=== PATIENT | male | born 1930 | race Caucasian/White ===

== ENCOUNTER 2016-09-16 12:03 | Inpatient (IN) | payer MEDICARE, OTHER ==
[~2016-09-16] VITALS: Ht 170.2 cm; Wt 84.0 kg
[~2016-09-16 12:03] MED LIST: ACET-171 PO; ALBU8.5H2 INHALATION; FUR20 PO; MELA3TAB35 PO; SIMV10TA4 PO; TIOT18CA3 IH
--- NOTE | 2016-09-16 12:06 | ED.REPORT ---
HPI-General Illness Date of Service Sep 16, 2016 ED Provider: Ghanshyam Marley DO Pt is an 86y.o. male with a hx of myelofibrosis, DM, CHF, and COPD who presents to the ED via EMS from a long term with decreased LOC and weakness. Per EMS nursing staff reported pt had abdominal pain but pt's abdomen was soft and non- tender per their examination. EMS also reports that pt has normally critically high WBC value per nursing staff. states that pt is conversational at baseline and has not been conversational since she has seen him today. Pt was recently hospitalized at [facility] for pneumonia and was discharged on a course of 300mg clindamycin, 4 times daily, which he completed on 09/08/16 per his . Pt has a PEG tube. Pt is poor historian due to metal status. Nursing Notes Stated Complaint: ALTERED LOC Nursing Notes Reviewed: Yes Allergies: Coded Allergies: No Known Allergies (Unverified , 10/04/15) Scheduled Albuterol HFA (Proair HFA) 8.5 Gm Hfa.aer.ad 2 PUFFS INHALATION q 8 hours Allopurinol (Allopurinol) 100 Mg Tablet 200 MG PO DAILY Furosemide (Furosemide) 20 Mg Tab 20 MG PO DAILY Hydroxyurea (Hydroxyurea) 500 Mg Capsule 500 MG PO mon, wed, fri Cmb #3/Fos/Pantethine (Probiotic & Acidophilus Cap) 1 Each Capsule 1 EACH PO BID Linezolid (Zyvox) 600 Mg Tablet 600 MG PO BID Ranitidine (Ranitidine) 150 Mg Capsule 150 MG PO BID Simvastatin (Simvastatin) 10 Mg Tablet 10 MG PO HS Scheduled PRN Hydrocodone-Acetaminophen 5-325 mg (Hydrocodone-Acetaminophen 5-325 mg) 1 Each Tablet 1 TABLET PO Q4H PRN PRN For Pain Polyethylene Glycol 3350 (Miralax) 17 Gm Powd.pack 17 GM PO DAILY PRN PRN For Constipation Miscellaneous Medications Lactose-Free Food/Fiber (Jevity 1.5 Quoc Liquid) 1,000 Ml Liquid 1,000 ML PO General Time Seen by MD: 12:06 Transferred From: shelter Chief Complaint Altered mental status Hx Obtained From: Spouse, EMS Unable to Obtain Hx: Patient condition, Mental status Arrived By: Ambulance Sudden in Onset?: Yes Onset Occurred: Just prior to arrival Symptom Duration: Since onset Severity: Current: No pain currently Past Medical History Past Medical History Notes: Oncologist: Dr. Bruce Past Medical History COPD Heart failure High cholesterol Severe emphysema Multifactorial pneumonia Multivessel CAD Hx of endocarditis Hx of acute respiratory failure Hx of Cdiff Myelofibrosis Reports: Diabetes mellitus Family History noncontributory Smoking History Former Smoker Social History Drug Use: Denies drug use Other Social History: , Lives in long term, Local resident Occupation noncontributory Review of Systems Unable to Obtain ROS Patient condition, Mental status Full Review of Systems Constitutional: Reports: Weakness - generalized Neurologic: Reports: Change LOC Complete sys rev & neg: except as marked. Physical Exam Vital Signs Initial VS: Reviewed Head / Eyes: Atraumatic, Normocephalic Skin: Warm, Dry, No cyanosis General/Constitutional: Awake Minimally responsive to stimulation Mouth: Positive: Mucous membranes dry Green plaques/crusts to back of throat and tongue Neck: Atraumatic Respiratory / Chest: Atraumatic, Breath sounds = bilat, No respiratory distress , No rales, No rhonchi, No wheezing, No retractions, No stridor Tachypneic Mouth breathing Cardiovascular: Heart rate NL, Regular rhythm, Heart sounds NL, No gallop, No murmurs, No rubs, Peripheral circulation NL Abdomen: Atraumatic, Soft, Non-tender, No distention Mental Status: Positive: Unresponsive (Minimally responsive to stimulation) Interpretation & Diagnostics Lab Results Interpretation Result Diagram: 09/24/16 0321 09/24/16 0321 Test 09/16/16 12:09 09/16/16 14:19 09/16/16 15:10 Troponin T 0.010ug/L (0.0-0.011) Pro-B-Type Natriuretic Peptide 550.9pg/mL (0-486) Urine Color Yellow (YELLOW) Urine Appearance Clear (CLEAR,HAZY) Urine pH 6.5 (5.0-8.0) Urine Specific [place] 1.015 (1.003-1.035) Urine Protein Tracemg/dL (NEG,TRACE) Urine Glucose (UA) Negativemg/dL (NEGATIVE) Urine Ketones Negativemg/dL (NEGATIVE) Urine Occult Blood Negative (NEGATIVE) Urine Nitrite Negative (NEGATIVE) Urine Bilirubin Negative (NEGATIVE) Urine Urobilinogen Normalmg/dL (NORMAL) Urine Leukocyte Esterase Negative (NEGATIVE) Urine RBC 0-2/hpf (0-2) Urine WBC 0-5/hpf (0-5) Urine Epithelial Cells Occasional/hpf (NONE-MOD) Urine Crystals Amorphous urates (NONE Urine Bacteria Few/hpf (NONE-FEW) Urine Hyaline Casts None/lpf (NONE) Urine Granular Casts None seen (NONE SEEN) Urine Waxy Casts None seen (NONE SEEN) Urine Red Blood Cell Casts None seen (NONE SEEN) Urine White Blood Cell Casts None seen (NONE SEEN) Urine Mucus Present (None Seen) Urine Trichomonas None seen (NONE SEEN) Urine Yeast None (NONE SEEN) Urinalysis Comment Fine granular casts Urine Culture Reflexed Not indicated Urine Random Calcium 7.7mg/dL (Not Estab.) Urine Total Protein 40.4mg/dL (Not Estab.) Urine Albumin 19.8% (.) Urine Pwzyw-0-Wajodjfx 4.9% (.) Urine Prjxv-1-Pgjcgrkie 19.5% (.) Urine Beta Globulin 36.7% (.) Urine Gamma Globulin 19.1% (.) Urine Protein Electrophoresis Note Comment (.) Urine Monoclonal Protein % 13.9% (Not Observed) Vitamin B12 Level >1999pg/mL (211-946) Thyroid Stimulating Hormone (TSH) 2.120uIU/mL (0.450-4.500) ECG Interpretation ECG Interpretation: Atrial premature complex Time: 12:30 Interpreted by: ED physician Normal ECG Interpretation: Normal rate (72), Normal sinus rhythm BMP / CMP Interpretation Na elevated, Ca elevated X-Ray Chest Interpretation Chest Xray Interpretation: IMPRESSION: No acute cardiopulmonary disease. Dictated by: Pavel Bates M.D. on 09/16/2016 at 12:38 Approved by: Pavel Bates M.D. on 09/16/2016 at 12:39 Chest Xray Interpretation: IMPRESSION: No radiographic evidence for pneumonia. Dictated by: Pavel Bates M.D. on 09/16/2016 at 14:02 Approved by: Pavel Bates M.D. on 09/16/2016 at 14:03 CT Head Interpretation IMPRESSION: No acute intracranial abnormalities. Moderate periventricular and deep white matter chronic small vessel ischemic change. Dictated by: Pavel Bates M.D. on 09/16/2016 at 13:38 Approved by: Pavel Bates M.D. on 09/16/2016 at 13:40 Re-Eval/Medical Decision Med Decision/Clinical Course 86-year-old male with a history of myelofibrosis and recent admission for pneumonia at [facility] who just finished a course of clindamycin presents for acute encephalopathy and weakness. Patient is a poor historian so it is difficult to obtain much history. It is noted that he has TYRA with multiple electrolyte abnormalities most likely related to dehydration. His pro calcitonin is elevated despite negative chest x-ray. This could indicate that he has pneumonia that we are not seeing due to dehydration. His white count is unreliable due to his myelofibrosis as it is chronically elevated. He has no signs of sepsis by vital signs. He was given 2 L of fluids here in the emergency department for dehydration and electrolyte abnormalities. He will need to be admitted for further evaluation and treatment. I discussed with the hospital but I did not start antibiotics empirically as there was no signs of sepsis or infection, except for the elevated pro calcitonin in the history of recent pneumonia. His UA is normal Source of Hx: Old records Time of Eval: 14:54 Re-Evaluation/Progress Note: Pt rechecked. Pt is sleeping. Discussed lab, imaging results, and plan for admit with . She understands and agrees with plan. states pt is DNAR, full treatment. Consultation : Referral / Consult Name: Sandra Holliday MD Consulted With: Hospitalist Call Returned at: 15:25 Gambreler Helper: Accepts admit Note: Discussed pt condition. Accepts admit. Counseled Regarding: Diagnosis, Lab results, Need for admission Discharge & Departure Primary Impression: Hypernatremia Additional Impressions: Hypercalcemia Dehydration Acute kidney injury Acute encephalopathy Disposition: ADMITTED TO HOSPITAL Discharge Condition All VS Reviewed: Yes Condition: Stable Referrals: Ethan Self MD (PCP) Crow Attestation Portions of this note were transcribed by Gabrielle Brock. I, Dr. Marley personally performed the history, physical exam and medical decision-making; I reviewed and confirmed the accuracy of the information in the transcribed note. Signed by: Crow Martinez, 09/16/2016 and [id number]. copies to: Ethan Self MD, Gary R DO Sep 16, 2016 12:06 GABRIELLE BROCK Sep 16, 2016 12:09 Time of Eval: 14:54 Re-Evaluation/Progress Note: Pt rechecked. Pt is sleeping. Discussed lab, imaging results, and plan for admit with . She understands and agrees with plan. states pt is DNAR, full treatment. Consultation : Referral / Consult Name: Sandra Holliday MD Consulted With: Hospitalist Call Returned at: 15:25 Gambreler Helper: Accepts admit Note: Discussed pt condition. Accepts admit. Counseled Regarding: Diagnosis, Lab results, Need for admission Discharge & Departure Primary Impression: Hypernatremia Additional Impressions: Hypercalcemia Dehydration Acute kidney injury Disposition: ADMITTED TO HOSPITAL Discharge Condition All VS Reviewed: Yes Condition: Stable Referrals: Ethan Self MD (PCP) Crow Attestation Portions of this note were transcribed by Gabrielle Brock. I, Dr. Marley personally performed the history, physical exam and medical decision-making; I reviewed and confirmed the accuracy of the information in the transcribed note. Signed by: Crow Martinez, 09/16/2016 and 1608. copies to: Ethan Self MD, Gary R DO Sep 16, 2016 12:06 GABRIELLE BROCK Sep 16, 2016 12:09
[2016-09-16 12:11] VITALS: BP 111/50; PULSE 80; RESP 18; O2SAT 100
[2016-09-16] MEDS ORDERED: 0.9% Sodium Chloride 1,000 ML IV ONE ×2 (12:16→13:39)
[2016-09-16 12:27] LABS: Mean Corpuscular Hemoglobin 33.4 pg (27.0-35.0); Mean Corpuscular Volume 110.5 fL (81-100); Platelet Count 170 bil/L (150-400)
[2016-09-16 12:40] LABS: INR 1.1 ratio
--- NOTE | 2016-09-16 12:41 | DRSVH ---
PROCEDURE: X-RAY CHEST ONE VIEW, PORTABLE ([id number]) INDICATIONS: 86 year-old male with shortness of breath and altered mental status. TECHNIQUE: One view of the chest was acquired. COMPARISON: [facility], , CHEST 1 VIEW, 06/28/2016, 20:37. [facility], , CHEST 2 VIEW , 06/23/2016, 13:51. [facility], , XR CHEST 1VW (PORTABLE), 09/12/2015, 8:50. FINDINGS: Surgical changes and devices: None. Lungs and pleura: No pleural effusions or pneumothorax. Lungs are clear. Mediastinum: Mediastinal contours appear normal. Heart size is normal. There is aortic atheroscler osis. Bones and chest wall: No suspicious bony lesions. Overlying soft tissues appear unremarkable. IMPRESSION: No acute cardiopulmonary disease. Dictated by: Pavel Bates M.D. on 09/16/2016 at 12:38 Approved by: Pavel Bates M.D. on 09/16/2016 at 12:39
[2016-09-16 12:58] LABS: BASOPHILS % (AUTO) 1 % (0-3); EOSINOPHILS % (AUTO) 1 % (0-5); MONOCYTES % (AUTO) 2 % (4-12); NEUTROPHILS % (AUTO) 47 % (40-74)
[2016-09-16 12:59] LABS: TROPONIN T 0.01 ug/L (0.0-0.011)
[2016-09-16 13:10] LABS: Magnesium 3.3 mg/dL (1.6-2.6)
--- NOTE | 2016-09-16 13:42 | DRSVH ---
PROCEDURE: CT BRAIN WITHOUT CONTRAST ([id number]) INDICATIONS: 86 year-old male with altered mental status. TECHNIQUE: Noncontrast 4.5 mm thick angled axial sections acquired from the foramen magnum to the vertex, with c oronal reformats. COMPARISON: None. FINDINGS: Image quality: Excellent. CSF spaces: Basal cisterns are patent. No extra-axial fluid collections. The ventricles are symmet gino in size and shape. Brain: No intracranial bleeds or masses. There is cerebral volume loss for age, with resultant vent ricular and sulcal prominence. There are moderate periventricular and deep white matter chronic smal l vessel ischemic changes. There is intracranial internal carotid and vertebral artery atheroscleros is. Skull and face: Calvarium and visualized facial bones appear intact, without suspicious lesions. Sinuses: Visualized sinuses and mastoids are clear. IMPRESSION: No acute intracranial abnormalities. Moderate periventricular and deep white matter chron ic small vessel ischemic change. Dictated by: Pavel Bates M.D. on 09/16/2016 at 13:38 Approved by: Pavel Bates M.D. on 09/16/2016 at 13:40
[2016-09-16] MEDS ORDERED: Lidocaine 2% 6mL Topical Jelly ONE (14:04)
--- NOTE | 2016-09-16 14:05 | DRSVH ---
PROCEDURE: X-RAY CHEST ONE VIEW ([id number]) INDICATIONS: 86-year-old male with tachypnea and altered mental status. TECHNIQUE: One view of the chest was acquired. COMPARISON: [facility], CR, XR CHEST 1VW (PORTABLE), 09/16/2016, 12:18. [facility], , CHEST 1 VIEW, 06/28/2016, 20:37. [facility], , CHEST 2 VIEW, 06/23/2016, 13:51. FINDINGS: Surgical changes and devices: None. Lungs and pleura: No pleural effusions or pneumothorax. Lungs are clear. There is incomplete inspi ratory effort. Mediastinum: Mediastinal contours appear normal. Heart size is normal. Bones and chest wall: No suspicious bony lesions. Overlying soft tissues appear unremarkable. IMPRESSION: No radiographic evidence for pneumonia. Dictated by: Pavel Bates M.D. on 09/16/2016 at 14:02 Approved by: Pavel Bates M.D. on 09/16/2016 at 14:03
[2016-09-16 14:52] LABS: APPEARANCE,URINE CLEAR (CLEAR,HAZY); COLOR,URINE YELLOW (YELLOW); OCCULT BLOOD,URINE NEGATIVE (NEGATIVE); PH,URINE 6.5 (5.0-8.0); UROBILINOGEN,URINE NORMAL (NORMAL)
[2016-09-16 17:30] VITALS: BP 109/69; PULSE 79; RESP 24; O2SAT 95
--- NOTE | 2016-09-16 17:49 | PCM.HPMED ---
Subjective Date of Service Sep 16, 2016 Primary Provider: Admitting Physician: Sandra Holliday MD Primary Care Physician: Ethan Self MD Attending Physician: Sandra Holliday MD Chief Complaint: Increased confusion, ongoing worsening hypernatremia HISTORY was OBTAINED FROM PATIENT / MEDITECH NOTES History of present illness 86y m, PEG/aspiration risk/prior sepsis/intubations, doesn't want to be touched anywhere, s/p 08/29- hospitalized at [facility] for asp pneumonia finished clindamycin 09/08/16, discharged to SNF for recuperation, w/ mild confusion on discharge, but worse 1-2 days and transferred here. Per SNF notes, Na 158 2016 w/ increase of tube feed free water to 90cc per 3hrs, ongoing lasix use, no cough, formed stool per , no rash recurrence. recurrence of thrush per . In the ER a chest refused nasal swab, 111/50, 80, room air, afebrile, 1 L normal saline lidocaine, Urine casey placed in ER > 800ccuop mildly dark, Review of Systems - unable to obtain, confused, pushes away hands while examining, arousable, does not follow commands. 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 He has had several severe infections COPD, diastolic heart failure, Echo (09/13/15): LVEF 55-60% with diastolic septal bounce, but no other obvious focal wall motion abnormalities. 2015 sepsis severe pneumonia and respiratory failure, requiring intubation and ICU hospitalization with influenza and respiratory syncytial virus, Dysphagia. Gout. Hypertension. Hyperlipidemia. Weakness requiring [facility] (SNF) admisison. Multivessel CAD Hx of endocarditis Allergies Coded Allergies: No Known Allergies (Unverified , 10/04/15) PMH Social History Hx Alcohol Use: No Alcoholic Drinks Per Day: pt from facility Hx Substance Use: No Smoking Status: Former Smoker Exam Vital Signs Vital Sign - Last Date Time Temp Pulse Resp B/P Pulse Ox O2 Delivery O2 Flow Rate FiO2 09/16/16 12:11 36.4 80 18 111/50 100 Room Air Lab and Diagnostics Labs Exam on admission 2L NC NAD pushes hands away feebly NC/AT no icterus no injected eyes EOMI PERRL / thrush, mouth breather, dry mucosa Supple neck - flexes head to move NC around CTAB equal chest rise / no accessory muscle use / mumbles / no rrw RRR S1 S2 / no mrg / 2+ radial pulses Soft nt nd + BS no hepatosplenomegaly PEG No edema no cyanosis no ecchymosis of lower extremities No rash / no jaundice LEDEZMA symmetrical facies EKG Trop BNP 550 << 4517 in 09/2015 WBC range 16-32 since 2015, chronic bandemia range 5-26 2015 LFT normal Ca 13 >> 11 after 1L NS in ER Cr 2 >> 1.8 after 1L NS in ER UA neg for nitrite/leuckocyte esterase/yeast Bcx pending PROCEDURE: CT BRAIN WITHOUT CONTRAST ([id number]) INDICATIONS: 86 year-old male with altered mental status. TECHNIQUE: Noncontrast 4.5 mm thick angled axial sections acquired from the foramen magnum to the vertex, with coronal reformats. COMPARISON: None. FINDINGS: Image quality: Excellent. CSF spaces: Basal cisterns are patent. No extra-axial fluid collections. The ventricles are symmetric in size and shape. Brain: No intracranial bleeds or masses. There is cerebral volume loss for age , with resultant ventricular and sulcal prominence. There are moderate periventricular and deep white matter chronic small vessel ischemic changes. There is intracranial internal carotid and vertebral artery atherosclerosis. Skull and face: Calvarium and visualized facial bones appear intact, without suspicious lesions. Sinuses: Visualized sinuses and mastoids are clear. IMPRESSION: No acute intracranial abnormalities. Moderate periventricular and deep white matter chronic small vessel ischemic change. Chest Xray Interpretation: IMPRESSION: No acute cardiopulmonary disease. Result Diagram: 09/16/16 1209 09/16/16 1510 Assessment & Plan Active issues and reason for admission Increased confusion per family, likely due to dehydration/hypernatremia/TYRA, ongoing thrush --pending thyroid panel/b12 --last BM yesterday firm --pending Hypernatremia/hypercalemia, new onset w/ TYRA, likely prerenal --stop lasix --75cc/hr 1/2NS, serial Na --increase home free water 90cc/3hr to 125cc/hr --pending c diff - though stools are formed since clindamycin finished 09/08 Thrush, myelofibosis hx --fluconazole IV tremors --per no AMS episodes until aug 2016, preceding tremors --pending B12 --start vit B complex Chronic issues known prior to admission, present on admission Chronic anemia macrocytic -- f/u pcp health care associated C diff colitis gout severe dysphagia/prior intubation/pna, PEG 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 Gout Hypertension. Hyperlipidemia. Weakness requiring [facility] (SNF) admisison. Multivessel CAD Hx of endocarditis --continue home tiotropium/ --consider uric acid after fluid resusitation, allopurinol had been stopped at some point and per oncologist note, he wanted him back on it. Diet jevity continuous 75 DVT prophylaxis heparin scd Code dnr / intubate as needed Disposition inpt Assessment and plan were discussed with patient family. Sandra Holliday MD Sep 16, 2016 17:49
--- NOTE | 2016-09-16 17:52 | NUR ---
Admit Patient admitted to room 1022 from ER. Patient brought in by medics from nursing facility for increased weakness, change in mentation. Pt very fatigued does moan out with repositioning . Pt very thin , skin overall no breakdown seen. at bedside to provide history. Patient not answering questions at this time.
[2016-09-16] MEDS ORDERED: Fluconazole Inj 200 MG in IV Premix 1 EACH IV SCH (18:25)
[2016-09-16] MEDS ORDERED: Albuterol 1.25 mg/3 mL Inhalation Solution NEB PRN (18:40)
[2016-09-16] MEDS ORDERED: FLUCONAZOLE IV SCH (19:10)
[2016-09-16] MEDS: HYDROcodone-APAP 5-325 mg Tablet PO PRN (19:16)
[2016-09-16] MEDS ORDERED: LACT1CAP60 PO (19:30)
[2016-09-16] MEDS ORDERED: HYDR-4003 PO (19:30)
[2016-09-16] MEDS ORDERED: RANI150C4 PO (19:31)
[2016-09-16] MEDS ORDERED: POLY17PO6 PO (19:34)
[2016-09-16] MEDS ORDERED: HYDR500C2 PO (19:34)
[2016-09-16] MEDS ORDERED: LACT-75 PO (19:37)
[2016-09-16] MEDS ORDERED: ZYL100 PO (19:37)
--- NOTE | 2016-09-16 19:41 | NUR ---
Feedings Patient started on Jevity 1.5 jamie at 75 cc/hr with 125 cc h20 flush q 3hrs. Iv fluids started as ordered.
--- NOTE | 2016-09-16 19:41 | NUR ---
med rec med rec updatd per the SNF record in the hard chart. notified Swing hospitalist, Dr Holliday via [employer].
[2016-09-16 20:17] VITALS: BP 102/58; PULSE 81; RESP 22; O2SAT 94
[2016-09-16] MEDS ORDERED: Albuterol 1.25 mg/3 mL Inhalation Solution NEB SCH (20:30)
[2016-09-16] MEDS ORDERED: Polyethylene Glycol (PEG) 17 Gm Powder PO PRN (20:55)
[2016-09-16 21:03] VITALS: PULSE 82
[2016-09-16] MEDS: Vitamin B Complex/Vit C Tablet PEG SCH (23:50)
[2016-09-16] MEDS ORDERED: Zoledronic Acid 4 mg/5 mL Inj 4 MG in 0.9% Sodium Chloride 100 ML IV ONE (23:55)
[2016-09-17] VITALS (10 sets, daily range): BP systolic 95–109; BP diastolic 52–61; PULSE 67–86; RESP 20–22; O2SAT 90–100
[2016-09-17] MEDS ORDERED: SODIUM CHLORIDE 0.45% IV ONE (00:15)
[2016-09-17] MEDS ORDERED: ZOLEDRONIC ACID IV ONE ×2 (00:15)
[2016-09-17] MEDS ORDERED: Zoledronic Acid 4 mg/5 mL Inj 4 MG in 0.9% Sodium Chloride 100 ML IV ONE (00:15)
--- NOTE | 2016-09-17 01:49 | NUR ---
Patient coughing and having a hard time clearing airway. Upon inspection with flashlight, roof of mouth, uvula, back of throat and tounge were coated with thick creamy white dried secretions. Aggressive oral care given, scrubbing and suctioning with yankauer until mostly clear. Large palm sized polly of dried creamy white thick secretions, pulled out with yankauer from back of patient's throat. Shown to RN and empathized need for frequent daily aggressive oral care. Patient breathing better after oral care and actually falling asleep due to being able to finally relax with his breathing. BS clear to auscultation and upper airway no longer sounding stridorousl. Spo2 at 90%.on RA. Placed on 1l nc for spo2 to 94%.
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
--- NOTE | 2016-09-17 07:46 | NUR ---
Suction Respiratory suctioned patient and removed a large amount of gunk from back of patient's oral cavity. Patient seems to be swallowing much more easily after suctioning. Patient unable to respond well when asked questions. Patient slept through most of shift.
[2016-09-17] MEDS: Tiotropium 18mcg/Cap 5 Capsule Inhaler Kit INHALATION SCH (08:30)
[2016-09-17] MEDS: Albuterol 1.25 mg/3 mL Inhalation Solution NEB SCH ×2 (08:39→20:12)
[2016-09-17] MEDS: Vitamin B Complex/Vit C Tablet PEG SCH (10:12)
--- NOTE | 2016-09-17 10:54 | NUR ---
NUTRITION ASSESSMENT: ASSESS: 86 yo M admitted for encephalopathy, increased confusion and dehydration. Pt with chronic PEG tube as pt with severe dysphagia. Pt is on Jevity 1.2 per call to SNF at 75 ml/hr. Pt was started on Jevity 1.5 at 75 mL/hr per MD order. PMHX: Myeloproliferative disorder, CHF, COPD, T2DM, HTN, HLD, CAD, Gout, severe dysphagia, c-diff colitis. LABS: Reviewed. Na 161, BUN 79, Cr 1.77, Glu 189, Ca 11.5, Alb 2.8. MEDS: Reviewed. GI: No BM reported yet. CURRENT WTS: 64.7 kg. NUTRITION SUPPORT (PEG): Jevity 1.5 at 75 mL/hr + 125 mL H2O flush every 3 hours as per MD order (2588 kcals, 110 g protein, and 2311 ML free H2O per day) HOME TF: Jevity 1.2 at 75 mL/hr + 90 ML H2O every 3 hours providing 2160 kcals, 100 g protein,and 2173 ML free H2O per day. EST. NEEDS: COPD Kcals: 3765-8674 kcal/day (30-35 kcal/kg BW) Pro: 80-100 g/day (1.2-1.5 g/kg BW) NUTRITION DIAGNOSIS: 1.) Inadequate oral intake related to severe dysphagia as evidenced by need for chronic PEG tube TF. NUTRITION INTERVENTION: 1.) Recommend decreasing TF of Jevity 1.5 at 65 ML/hr x 23 with 125 mL H2O flush every 3 hours as per MD order to provide 2243 kcals, 95 g protein and 2136 mL free H2O per day. MONITOR / EVAL: TF tolerance, labs, nutritional status. Continue to monitor per high nutrition risk guidelines. Addendum: 09/19/16 at [address] Pt transferred to CCU and intubated. Possible aspiration, TF rate decreased to 40 ml/hr per MD. Will continue to monitor.
[2016-09-17] MEDS: HYDROcodone-APAP 5-325 mg Tablet PO PRN ×3 (11:17→22:15)
--- NOTE | 2016-09-17 17:25 | NUR ---
TF/SPUTUM/Activity TF: Multiple orders for TF. Call to sheriffs officer and requested verification. Per Fabrication Department Supervisor, pt to be on Jevity 1.5 at 65ml/hr with continued flushes at 125cc q3h. TF running low and call to kitchen after no arrival of new TF. At 1330, TF empty - pt flushed and awaited new TF. At 1430, new bottle Jevity 1.5 hung and infusing. No issues at this time with PEG tube. Sputum: Per report, pt had mucous plug expectorated - sample sent for cx. Pt with sensitive nose = rapid flu and MRSA unable to be obtained. NOC RN attempted on their shift, pt did not tolerate - contaminated. RN went to reattempt and pt refusing. PO care provided. Activity: Pt itching face/ear/head, all over per pt - requesting Benadryl. This RN spoke with re: anti-itch and with pt encephalopathy, stated he would order cream to help with itch. Pt aware of this order - will apply when up from pharmacy. Care continues.
--- NOTE | 2016-09-17 18:06 | PCM.PNMED ---
Subjective Date of Service Sep 17, 2016 Subjective Nonverbal and cannot really even responsive. Obtunded eyes closed, his reports that he was awake all night delirious and there was also a large mucoid mass he moved by suction that is probably when she shows me at least 1 inch in diameter Exam Vital Signs Vital Sign - Last Date Time Temp Pulse Resp B/P Pulse Ox O2 Delivery O2 Flow Rate FiO2 09/17/16 16:59 37.0 67 20 95/52 95 Room Air Intake and Output 09/16/16 09/16/16 09/17/16 Cumulative From/Thru 15:00 23:00 07:00 09/16/16 17:12 - 09/17/16 05:17 Intake Total 0 ml 0 ml 0 ml Output Total 650 ml 1000 ml 1650 ml Balance -650 ml -1000 ml -1650 ml Intake Oral 0 ml 0 ml 0 ml Output Urine Total 650 ml 1000 ml 1650 ml # Bowel Movements 0 0 Exam Gen.-Thin male sleeping in bed no apparent distress. After reportedly being up all night according to his Eyes-closed, no discharge normal eyelids Mouth-dry ENT- ears normal, nose normal Neck- supple/trach midline CVS-normal rate Lungs-normal rate no evidence of respiratory distress or accessory muscle usage GI-flat Musc- moving 4 no obvious deformity Neuro- cranial nerves II through XII intact to gross examination, nonfocal Skin- warm and dry, no rashes/lesions/wounds noted Psych-sleeping, not awakened by talking loudly over him Lab and Diagnostics Result Diagram: 09/16/16 1209 09/17/16 1252 Assessment & Plan 86-year-old male admitted 09/16 with increased confusion. Normally conversational a baseline and I guess relatively lucid. Discharge to SNF from [facility] about 09/13. Free water deficit of 7.76 L as of 09/17 total I/Os -336mls. Goal lower Na by 0.4meq/hr. If not correcting change to d5W @ 90-100mls/hr Acute metabolic encephalopathy- correctable electrolytes treat underlying causes. - TSH 2.2 09/16 -B12 09/16 still pending 09/17 -Ordering olanzapine by mouth/IM when necessary agitation patient was sundowning 09/16 according to . 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 Oral care tremors- no history of seizures will observe --per no AMS episodes until aug 2016, preceding tremors --pending B12 09/17 --vit B complex 09/15 severe dysphagia/prior intubation/pna, PEG- continue PEG tube feeding- jevity continuous 75, free water Weakness requiring [facility]) admission-PT/OT E bounce when appropriate Chronic issues known prior to admission, present on admission Chronic anemia macrocytic -- f/u pcp health care associated C diff colitis- no BM since admission gout- no sign of this now. --consider uric acid after fluid resuscitation, allopurinol had been stopped at some point and per oncologist note, he wanted him back on it. 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 Prophylaxis- DVT/heparin,scd. GI famotidine renally dose Disposition- DO NOT [facility]ATE from [facility] likely back there Medically complex patient is high risk for complications VTE Mechanical Devices: Intermittant Pneumatic CD Omid Patel MD Sep 17, 2016 18:06
[2016-09-17] MEDS ORDERED: OLANZapine Zydis ODT 5 mg Tablet PO PRN (18:35)
[2016-09-17] MEDS ORDERED: Famotidine 10 mg/mL 2 mL Inj IVPUSH SCH (21:00)
[2016-09-17] MEDS: FLUCONAZOLE IV SCH (23:34)
[2016-09-18] VITALS (11 sets, daily range): BP systolic 98–123; BP diastolic 53–71; PULSE 65–95; RESP 18–32; O2SAT 87–100
[2016-09-18 04:07] LABS: Vitamin D, 25-Hydroxy 43.1 ng/mL (30.0-100.0)
--- NOTE | 2016-09-18 05:24 | NUR ---
Respiratory/ Activity Pt still itching at ears/hair, pulling at cather occasionally, generally restless this shift. PRN given for pain without relief, olanzapine given with good results. Pt low O2 while sleeping with mouth open, refuses O2 mask- mask left near face to provide some support. No signs of cardiac or GI distress, Jevity toleratd at 65ml/h. IV running NS at 75 ml/hr. Nicohlson patent and draining. in room. Care continues
[2016-09-18] MEDS: Albuterol 1.25 mg/3 mL Inhalation Solution NEB SCH ×3 (05:53→22:33)
[2016-09-18 06:40] LABS: Mean Corpuscular Hemoglobin 31.9 pg (27.0-35.0); Mean Corpuscular Volume 112.1 fL (81-100); Platelet Count 109 bil/L (150-400)
[2016-09-18 08:09] LABS: BASOPHILS % (AUTO) 0 % (0-3); EOSINOPHILS % (AUTO) 3 % (0-5); MONOCYTES % (AUTO) 3 % (4-12); NEUTROPHILS % (AUTO) 61 % (40-74)
[2016-09-18] MEDS: Tiotropium 18mcg/Cap 5 Capsule Inhaler Kit INHALATION SCH ×2 (08:13→08:30)
[2016-09-18] MEDS: Vitamin B Complex/Vit C Tablet PEG SCH (08:13)
[2016-09-18] MEDS ORDERED: Dextrose 5% 1,000 ML IV SCH (08:30)
[2016-09-18] MEDS ORDERED: Rocuronium 10 mg/mL 5 mL Inj ONE (09:56)
--- NOTE | 2016-09-18 15:55 | NUR ---
FRANKY completed with patient at bedside.
--- NOTE | 2016-09-18 17:48 | PCM.PNMED ---
Subjective Date of Service Sep 18, 2016 Subjective Patient still nonverbal with me. His states that she did he did say he loved her, and that he slept much better last night. No complaints of chest pain, dyspnea, nausea vomiting although not sure the patient could make his needs known. Exam Vital Signs Vital Sign - Last Date Time Temp Pulse Resp B/P Pulse Ox O2 Delivery O2 Flow Rate FiO2 09/18/16 15:00 36.5 90 28 123/69 93 OxyMask 3.00 Intake and Output 09/17/16 09/17/16 09/18/16 Cumulative From/Thru 15:00 23:00 07:00 09/16/16 17:12 - 09/18/16 05:20 Intake Total 1304 ml 1705 ml 0 ml 3009 ml Output Total 1550 ml 850 ml 4050 ml Balance 1304 ml 155 ml -850 ml -1041 ml Intake Oral 0 ml 0 ml 0 ml IV Total 562 ml 562 ml Tube Feeding 904 ml 904 ml 1808 ml Tube Irrigant 400 ml 239 ml 639 ml Output Urine Total 1550 ml 850 ml 4050 ml # Bowel Movements 0 0 Exam Gen.-Thin pretty much cachectic male sleeping in bed no apparent distress. After reportedly being up all night according to his Eyes-closed, no discharge normal eyelids Mouth-dry, no evidence of thrush or any other coating ENT- ears normal, nose normal Neck- supple/trach midline CVS-rrr -murmur/gallop Lungs-normal rate no evidence of respiratory distress or accessory muscle usage , CTA although not moving air really well GI-scaphoid, nontender no HSM, NABS Musc- moving 4 no obvious deformity Neuro- cranial nerves II through XII intact to gross examination, nonfocal Skin- warm and dry, no rashes/lesions/wounds noted Psych-sleeping, not awakened by talking loudly over him Lab and Diagnostics Result Diagram: 09/18/16 0600 09/18/16 0600 Assessment & Plan 86-year-old male admitted 09/16 with increased confusion. Normally conversational a baseline and I guess relatively lucid. Discharge to SNF from [facility] about 09/13. Free water deficit of 7.76L as of 09/18 total I/Os +1089mls. Goal lower Na by 0.4meq/hr not achieved changing to d5W @ 09/18. Acute metabolic encephalopathy- correctable electrolytes treat underlying causes.- TSH 2.2, -B12 >09/16 -Ordering olanzapine PO/IM prn agitation sundowned 09/16 slept 09/17. 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 Oral care tremors- no history of seizures will observe --per no AMS episodes until aug 2016, preceding tremors --pending B12 09/17 --vit B complex 09/15 severe dysphagia/prior intubation/pna, PEG- continue PEG tube feeding- jevity continuous 75, free water 125mls Weakness requiring [facility] ([facility]) admission-PT/OT E bounce when appropriate Chronic issues known prior to admission, present on admission Chronic anemia macrocytic -- f/u pcp health care associated C diff colitis- no BM since admission gout- no sign of this now. --consider uric acid after fluid resuscitation, allopurinol had been stopped at some point and per oncologist note, he wanted him back on it. 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 Prophylaxis- DVT/heparin,scd. GI famotidine renally dose Dis[facility]- [facility] Medically complex patient is high risk for complications VTE Mechanical Devices: Intermittant Pneumatic CD Omid Patel MD Sep 18, 2016 17:48
[2016-09-18] MEDS ORDERED: Dextrose 5% 0.225% NaCl 1,000 ML IV SCH (19:35)
--- NOTE | 2016-09-18 19:46 | NUR ---
Activity/Respiratory Pt remains nonverbal with occ'l yes/no answers; bedrest; does not like to be bothered with turning or assessing peg tube. Fidgets with O2 mask/NC and tele wires. Pt refusing PO care - but this RN was able to moisten pt mouth this afternoon. CPOx placed d/t pt desats low 80s on RA - does not like tubing on his face. RR increased. Pt dry. Continue IVF/Attempt PO care/Reposition in bed. Care continues.
[2016-09-18] MEDS ORDERED: 0.9% Sodium Chloride 250 ML ONE (20:14)
[2016-09-18] MEDS: FLUCONAZOLE IV SCH (20:24)
[2016-09-18] MEDS: Famotidine Inj 20 MG in IV Premix 1 EACH IV SCH (21:39)
--- NOTE | 2016-09-18 21:56 | NUR ---
Pt. with altered LOC Problem-Patient is experiencing some signs of agitation/anxiety after left. Grunting, fidgeting, removing O2 mask, looking over where she sat. Intervention-reoriented pt. Held patients hands and sat with him. Offered reassurance that his will return in the morning. Evaluation-Pr. calmed down with hand holding and reassurance. Safety-Bed is in low position. Call light in reach. Pt. being turned q2h for maintenance and skin integrity.
[2016-09-19] VITALS (13 sets, daily range): BP systolic 87–135; BP diastolic 39–68; PULSE 75–97; RESP 20–38; O2SAT 95–100
--- NOTE | 2016-09-19 03:53 | NUR ---
Respiratory/Oral Care Patient on 2L via Oxymask, and has kept mask in place for most of shift thus far. CPOx- 99%. Oral care performed throughout the night, and patient noted to get increasingly agitated with care. Also noted to get agitated with breathing treatments. Promptly calms back to baseline once care is complete. No s/sx of pain or discomfort. FELDT score= 0.
[2016-09-19] MEDS: Dextrose 5% 1,000 ML IV SCH ×2 (07:20→20:03)
--- NOTE | 2016-09-19 07:20 | NUR ---
resp distress/code status pt found to be nonresponsive to vigorous stim, pupils constricted, breathing labored and dyspneic. Dr Patel notified. contacted, she stated that she did not want chest compressions but she does want him to be intubated if needed. She was notified that he would be transferring up to CCU 2017, and pt has been moved
--- NOTE | 2016-09-19 08:10 | ABG ---
DateTimeAnalyzed 08:04:00 -_ pH ____7.041 - 7.350 7.450 pCO2 108 -mmHg 35.0 45.0 pO2 ___70.4__ -mmHg 69.0 116 HCO3- ___27.9__ -mmol/L 22.0 26.0 ABE ___-4.3__ -mmol/L -2.0 2.0 tHb ____9.2__ -g/dL O2Hb ___87.2__ -% COHb ____2.9__ -% MetHb ____0.9__ -% sO2 ___90.6__ -% 25.0 FIO2 ___25.0__ -% Drawn By cf - Date/Time Notified____ 08:10:00 -_ Notified By cf - Notified Whom ___Dr. Radvany, Omid -_ B 756 -mmHg tO2 ___11.3__ -Vol% Fred test _Positive -
[2016-09-19 08:14] LABS: Mean Corpuscular Hemoglobin 32.8 pg (27.0-35.0)
[2016-09-19] MEDS: Vitamin B Complex/Vit C Tablet PEG SCH (08:30)
[2016-09-19] MEDS: Tiotropium 18mcg/Cap 5 Capsule Inhaler Kit INHALATION SCH (08:30)
[2016-09-19] MEDS: Albuterol 1.25 mg/3 mL Inhalation Solution NEB SCH ×2 (08:30→20:11)
--- NOTE | 2016-09-19 08:43 | NUR ---
Social Work Initial Assessment: SW met with patient and at bedside to discuss discharge plan. Patient is a 86 year old male admitted on 09/16/16 for encephalopathy and dehydration. Patient payer as Medicare and . Patient has no manager intermediate disability. [facility] with [facility]. Patient PCP as MD Self. Patient from [facility] and states plans for patient to return at discharge. Patient resided with in [place] prior to previous SNF admission. [facility] Patient has [facility] histroy with [facility] in past. Patient has a walker and cane at home. SW spoke to SNF rep Carlos who states that patient accepted back upon discharge. SNF choice list offered and declined to . states plans for patient to return. Access provided. SW to follow. PLAN: SNF return to [facility], pending clinical course Fernando GARCIA Addendum: 09/19/16 at 0848 by SHEILA GONZALEZ Amended: Links added.
[2016-09-19] MEDS ORDERED: 0.9% Sodium Chloride 1,000 ML ONE ×3 (08:46→10:56)
[2016-09-19] MEDS ORDERED: fentaNYL-PF 50 mCg/mL 2 mL Inj ONE (08:52)
[2016-09-19] MEDS ORDERED: Norepinephrine 8,000 mCg/250 mL NS Premix IV ONE (08:53)
[2016-09-19] MEDS ORDERED: fentaNYL-PF 50 mCg/mL 2 mL Inj IVPUSH PRN (09:00)
--- NOTE | 2016-09-19 09:14 | DRSVH ---
PROCEDURE: X-RAY CHEST ONE VIEW, PORTABLE ([id number]) INDICATIONS: POST INTUBATION TUBE PLACEMENT TECHNIQUE: One view of the chest was acquired. COMPARISON: [facility], CR, XR CHEST 1VW (PORTABLE), 09/16/2016, 12:18. FINDINGS: Surgical changes and devices: ET tube projects approximately 4.6 cm superior to the rudi. Lungs and pleura: No pleural effusions or pneumothorax. Increased opacification in the left lung bas e... Mediastinum: Mediastinal contours appear normal. Heart size is normal. Bones and chest wall: No suspicious bony lesions. Overlying soft tissues appear unremarkable. IMPRESSION: 1. ET tube 4.6 cm superior to the rudi. 2. Increasing opacification in the left lung base which could represent atelectasis, pneumonia or asp iration. Dictated by: Dee Negron MD, PhD on 09/19/2016 at 9:10 Approved by: Dee Negron MD, PhD on 09/19/2016 at 9:12
[2016-09-19] MEDS ORDERED: fentaNYL 2,500 mCg/250 mL IV Premix IV SCH (10:05)
[2016-09-19] MEDS ORDERED: fentaNYL 2,500 mCg/250 mL IV Premix IV PRN (10:05)
[2016-09-19] MEDS ORDERED: fentaNYL-PF 50 mCg/mL 2 mL Inj IVPUSH ONE (10:10)
[2016-09-19] MEDS ORDERED: Vancomycin Dose per Pharmacist XX SCH (10:25)
[2016-09-19] MEDS ORDERED: levoFLOXacin Inj 750 MG in IV Premix 1 EACH IV SCH (10:48)
--- NOTE | 2016-09-19 11:06 | DRSVH ---
PROCEDURE: X-RAY PICC LINE PLACEMENT BY NURSE ([id number]) INDICATIONS: IV ACCESS COMPARISON: [facility], CR, XR PICC LINE PLACE BY NURSE, 09/12/2015, 17:59. FINDINGS: PICC was placed by the intravenous therapy team from the left side. Fluoroscopic spot america m demonstrates tip projected over the lower SVC. IMPRESSION: Tip of PICC projected over the lower SVC . Dictated by: Cam Tenorio Natalio Interpreted: Nitesh Wyatt MD on 09/19/2016 at 11:05 Transcribed by: EUGENIE on 09/19/2016 at 11:06 Approved by: Nitesh Wyatt M.D. on 09/19/2016 at 11:12
--- NOTE | 2016-09-19 11:19 | ABG ---
DateTimeAnalyzed 11:09:00 -_ pH ____7.349 - 7.350 7.450 pCO2 ___41.9__ -mmHg 35.0 45.0 pO2 ___50.9__ -mmHg 69.0 116 HCO3- ___22.4__ -mmol/L 22.0 26.0 ABE ___-2.5__ -mmol/L -2.0 2.0 tHb ____9.0__ -g/dL O2Hb ___87.6__ -% COHb ____3.3__ -% MetHb ____0.9__ -% sO2 ___91.4__ -% 25.0 FIO2 ___30.0__ -% PRVC 500 - PEEP ____5.0__ -cmH2O Set_RR ___20.0__ -b/min Vt __539.0__ -L Drawn By jmw - Date/Time Notified____ 11:18:00 -_ Spontaneous_RR ___20.0__ -b/min Oxygen Device 1 VENTILATOR - Notified By jmw - Notified Whom DR KENDREGEN - B 755 -mmHg tO2 ___11.2__ -Vol% OrderingPhysicianInitials bak - Fred test _Positive -
[2016-09-19 11:36] LABS: Mean Corpuscular Hemoglobin 32.1 pg (27.0-35.0); Mean Corpuscular Volume 108.5 fL (81-100); Platelet Count 116 bil/L (150-400)
[2016-09-19] MEDS ORDERED: 0.9% Sodium Chloride 500 ML ONE (12:03)
[2016-09-19 12:04] LABS: Magnesium 2.1 mg/dL (1.6-2.6)
[2016-09-19 13:00] LABS: BASOPHILS % (AUTO) 1 % (0-3); EOSINOPHILS % (AUTO) 1 % (0-5); MONOCYTES % (AUTO) 7 % (4-12); NEUTROPHILS % (AUTO) 50 % (40-74)
[2016-09-19] MEDS: Norepineph 8,000 mCg/250 mL NS 8,000 MCG in IV Premix 1 EACH IV PRN ×2 (13:16→16:01)
[2016-09-19] MEDS: Vasopressin Inj 20 UNIT in 0.9% Sodium Chloride 100 ML IV SCH ×2 (13:17→21:05)
[2016-09-19] MEDS: Albumin 25% 25 GM in IV Premix 1 EACH IV SCH ×2 (13:17→16:01)
[2016-09-19] MEDS: Lactated Ringer's 1,000 ML IV SCH ×3 (13:17→21:02)
[2016-09-19] MEDS: MethylprednisoLONE Sodium Succinate 40 mg/mL Inj IVPUSH SCH ×2 (13:22→16:08)
[2016-09-19 13:23] LABS: INR 1.16 ratio
[2016-09-19] MEDS: Phenylephrine Inj 20,000 MCG in 0.9% Sodium Chloride 250 ML IV PRN (13:51)
[2016-09-19] MEDS: Meropenem Inj 2,000 MG in 0.9% Sodium Chloride 100 ML IV SCH ×2 (14:19→21:02)
--- NOTE | 2016-09-19 15:00 | PCM.PNMED ---
Subjective Date of Service Sep 19, 2016 Subjective Called to the bedside to see the patient to was totally unresponsive this morning. He did not even respond to vigorous suction. ABG was obtained and showed his pH 7.04 with a PCO2 of over 190 was transferred to the intensive care unit Exam Vital Signs Vital Sign - Last Date Time Temp Pulse Resp B/P Pulse Ox O2 Delivery O2 Flow Rate FiO2 09/19/16 11:32 92 103/45 95 30 09/19/16 09:30 37.0 34 Mechanical Ventilator 09/19/16 04:25 3.00 Intake and Output 09/18/16 09/18/16 09/19/16 Cumulative From/Thru 15:00 23:00 07:00 09/16/16 17:12 - 09/19/16 06:19 Intake Total 2130 ml 0 ml 2745 ml 7884 ml Output Total 1350 ml 950 ml 6350 ml Balance 2130 ml -1350 ml 1795 ml 1534 ml Intake Oral 0 ml 0 ml 0 ml IV Total 826 ml 532 ml 1920 ml Tube Feeding 803 ml 1529 ml 4140 ml Tube Irrigant 501 ml 684 ml 1824 ml Output Urine Total 1350 ml 950 ml 6350 ml # Bowel Movements 0 0 0 Exam Gen.-Thin pretty much cachectic male sleeping open mouth breathing using accessory muscles Eyes-closed, no discharge normal eyelids Mouth-dry, no evidence of thrush or any other coating ENT- ears normal, nose normal Neck- supple/trach midline CVS-rrr -murmur/gallop Lungs-tacypnic rate 30s, shallow, accessory muscles, CTA although not moving air really well GI-scaphoid, nontender no HSM, NABS Musc- moving 4 no obvious deformity Neuro- cranial nerves II through XII intact to gross examination, nonfocal Skin- warm and dry, no rashes/lesions/wounds noted Psych-comatosed Lab and Diagnostics ABG pH 7.04, PCO2 108, PO2 70.4 Result Diagram: 09/19/16 1100 09/19/16 1057 X-Rays, CTs and MRIs CXR 09/19 personally/concurrently reviewed by Jorge 09/19 1. ET tube 4.6 cm superior to the rudi. 2. Increasing opacification in the left lung base which could represent atelectasis, pneumonia or aspiration. Dictated by: Dee Negron MD, PhD on 09/19/2016 at 9:10 12-lead ECG EKG personally/concurrently reviewed by Jorge rate 72, QTC 454 ms 09/16/16 * Poor quality data, interpretation may be affected . Sinus rhythm . Atrial premature complex * Possible left atrial enlargement * Nonspecific intraventricular conduction delay * Nonspecific repolarization abnormalities . When compared with ECG of 12-Sep-2015 9:03:05, * Significant rate decrease * Criteria for LAE is less prominent * ST-T abnormalities are less prominent Assessment & Plan 86-year-old male admitted 09/16 with increased confusion. Normally conversational a baseline and I guess relatively lucid. Discharge to [facility] from [facility] about 09/13. Free water deficit of 7.76L as of 09/18 total I/Os +1534mls 09/19. Goal lower Na by 0.4meq/hr not achieved changing to d5W @ 09/18 then 08/15ns as Na dropped 6pts (+/- too rapid) in evening and back to D5 because Na stable overnight. 09/19 The bedside at about 7:15 AM patient mouth breathing totally unresponsive big difference from yesterday. Blood gas obtained, pH 7.04/PCO2 104 patient transferred to ICU and intubated Acute respiratory failure/CO2 retention/narcosis encephalopathy- transfer care to ICU. Patient now intubated. acute? COPD -continue home tiotropium asx Aspiration?? Acute metabolic encephalopathy- correctable treat underlying causes.- TSH 2.2 , -B12 >1999 09/16 -Ordering olanzapine PO/IM prn agitation 09/16 slept 09/17. Reportedly patient normally conversant with his , he was waking up enough to tell her he loved her. Hypernatremia- Na 168, 163 09/16, 161 09/17, 160 155 09/18 152 09/19, - goal 0.4meq/ hr (1.6meq per BMP), d/c lasix 09/15, --75cc/hr 1/2NS, 09/15-09/18, D5W 50mls/hr 09/18, 1/4NS 09/18-09/19, -- home free H2O 90cc/3hr to 125cc/hr 09/16- --pending c diff - though stools are formed since clindamycin finished 09/08, ordered no BM 09/15- l not even pending -09/18 Acute/Chronic anemia macrocytic -- f/u Hg 11.5 09/16, 8.2 09/18, 7.5 09/19 Hypercalcemia- Ca 13.9, 11.5 09/16, 11.4 09/17, 11.0 09/18, 8.2 09/19 cont hydration/ monitor correcting PTH inappropriately normal R PTH is pending however patient may have hyperparathyroidism TYRA- Cr 2.02, 1.92 09/16, 1.72 09/17, 1.75 09/18, 1.45 09/19 cont hydrating 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 Oral care day#5 09/19 consider d/c severe dysphagia/prior intubation/pna, PEG- continue PEG tube feeding- jevity continuous 75, free water 125mls Weakness requiring [facility] ([facility]) admission-PT/OT E bounce when appropriate tremors- no history of seizures will observe --per no AMS episodes until aug 2016, preceding tremors --pending B12 09/17 --vit B complex 09/15 Chronic issues known prior to admission, present on admission health care associated C diff colitis- no BM since admission gout- no sign of this now. --consider uric acid after fluid resuscitation, allopurinol had been stopped at some point and per oncologist note, he wanted him back on it. 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 Prophylaxis- DVT/heparin,scd. GI famotidine renally dose Disposition- [facility] NOT [facility]ATE from [facility] likely back there Medically complex patient is high risk for complications VTE Mechanical Devices: Intermittant Pneumatic CD Omid Patel MD Sep 19, 2016 15:00
[2016-09-19] MEDS ORDERED: 0.9% Sodium Chloride 250 ML ONE (15:01)
[2016-09-19] MEDS ORDERED: Acetaminophen IV 1,000 MG in IV Premix 1 EACH IV PRN (16:20)
--- NOTE | 2016-09-19 16:28 | ENDO ---
[address] [address] ENDOSCOPY PROCEDURE PATIENT: OVIDIO RAO : 1930 MR#: [id number] ADMIT: 09/16/2016 JOB ID: [id number] DATE OF SERVICE: 09/19/2016 PROCEDURE: Endotracheal intubation. INDICATIONS FOR PROCEDURE: The patient is an 86-year-old, male with severe COPD who has developed hypercarbic respiratory failure along with shock. He was being transported to the ICU from the medical floor for severe hypoventilation. Upon arrival in the intensive care unit, he was not felt to be a candidate for BiPAP due to the severity of his hypercapnia, unresponsive state and upper airway obstruction with concretions. Because of previous conversation with the patient's over the phone, it was felt that BiPAP could be changed to intubation within the purview of her statements as he was in extremis. The patient was preoxygenated by mask with O2 sats achieved of 99%. Was given etomidate and rocuronium. Resident was able to visualize the pharynx. Removed a palm-sized rubbery concretion. Was apparently able to see the trachea but unable to pass the endotracheal tube. Initially tried an 8 and was then unsuccessful with a 7.5. He was bagged between attempts with the lowest O2 saturation noted of 92%. At this point, I assumed and intubative role. Using a #4 MAC blade, the airway was noted to still be obstructed with concretions. One was removed from over the tracheal inlet, one removed from a little bit lower possibly in the glottic area. The view of the trachea was of the posterior 2/3. True vocal cords could not be visualized due to swelling of the false cords as well as bleeding though it was minimal in amount and did not obscure the view. Initial attempts to pass the tube felt a bit odd. The tube was removed and another concretion extracted from the airway. After that, a #7.5 endotracheal tube was passed relatively easily though again only visualization of the posterior 2/3 of the tracheal opening were visualized. There was good air exchange. Capnography suggested intubation of the airway. Oxygenation improved with bagging. Good breath sounds heard bilaterally though there were crackles throughout both lung forte. Stat chest x-ray showed the endotracheal tube in good position, maybe slightly high in the airway. Throughout the procedure, no arrhythmias were noted. No O2 desaturation was noted. Tube was secured in the airway. Mechanical ventilation instituted. Ventilator settings were determined.
--- NOTE | 2016-09-19 16:45 | DRSVH ---
[facility] [address] [place] [address] Echocardiogram Report Name: OVIDIO RAO Study Date: 09/19/2016 Height: 67 in Hospital Exam Location: [facility] Weight: 157 lb Gender: Male BSA: 1.8 m2 : 1930 Age: 86 yrs BP: 87/40 mmHg Reason For Study: Congestive Heart Failure Performed By: Miya Patel Referring Physician: SVETLANA MARIN Interpretation Summary The left ventricular cavity is small. Left ventricular systolic function is normal without focal wall motion abnormalities. The ejection fraction is estimated to be 55-60%. Assessment of diastolic parameters indicates normal left ventricular diastolic function and normal filling pressures. The right ventricle is normal in size and function. The right ventricular systolic pressure is estimated at 37 mmHg assuming a right atrial pressure of 8 mm Hg. Both atria are normal in size. There is no significant valvular heart disease. The aortic root is mildly dilated. The ascending aorta is mild-moderately enlarged. No real significant changes since prior echos study on 09/12/2015. Procedure: A two-dimensional transthoracic echocardiogram with color flow and Doppler was performed in limited views only. The study quality was technically adequate. Comparison is made with the echocardiogram of 09/18/15. The patient was in normal sinus rhythm during the exam. Left Ventricle: The left ventricular cavity is small. There is normal left ventricular wall thickness. Left ventricular systolic function is normal without focal wall motion abnormalities. The ejection fraction is estimated to be 55-60%. Assessment of diastolic parameters indicates normal left ventricular diastolic function and normal filling pressures. Right Ventricle: The right ventricle is normal in size and function. Atria: Both atria are normal in size. Mitral Valve: The mitral valve is normal in structure and function. There is no mitral regurgitation noted. Aortic Valve: The aortic valve is grossly normal. The aortic valve is slightly calcified. There is no aortic valve stenosis. No aortic regurgitation is present. Tricuspid Valve: The tricuspid valve is normal in structure and function. There is trace tricuspid regurgitation. The right ventricular systolic pressure is estimated at 37 mmHg assuming a right atrial pressure of 8 mm Hg. Pulmonic Valve: The pulmonic valve is not well visualized. There is no significant valvular heart disease. Great Vessels: The aortic root is mildly dilated. The ascending aorta is mild-moderately enlarged. The pulmonary artery is not well visualized, but is probably normal size. The IVC is dilated, but has some respiratory collapse suggesting high central venous pressure. Pericardium/ Pleura There is no pericardial effusion. There is no pleural effusion. MMode/2D Measurements & Calculations LVIDd: 3.7 cm LA dimension: 2.9 cm RA long axis Ao root diam LVIDs: 2.7 cm FS: 28.1 % LA A2 area: 17.1 cm RA area asc Aorta IVSd: 0.99 cm LA A4 area: 16.9 cm Diam: 4.2 cm LVPWd: 0.90 cm LA length (vol): 4.4 cm : 9.5 cm LA vol: 55.4 ml RA vol: 22.0 ml LA vol index RA : 12.0 mm2 IVC diam: 2.8 cm LV dean. diameter/BSA LV sys. diameter/BSA (cm/m^2): 2.1 (cm/m^2): 1.5 Doppler Measurements & Calculations MV E max rafal MV E/A: 1.1 TR max rafal MV dec time : 94.4 cm/sec Med Peak E' Rafal : 271.2 cm/sec : 0.21 sec MV A max rafal TR max PG : 87.3 cm/sec E/E' med: 7.2 : 29.4 mmHg MV P1/2t: 62.1 msec Lat Peak E' Rafla E/E' lat: 5.8 E/e' average: 6.5 MV P1/2t max rafal MVA(P1/2t): 3.5 cm2 Reading Physician:ANTONIO
--- NOTE | 2016-09-19 16:53 | CONS ---
[address] [address] CONSULTATION REPORT PATIENT: OVIDIO RAO : 1930 MR#: [id number] ADMIT: 09/16/2016 JOB ID: [id number] DATE OF SERVICE: 09/19/2016 PROBLEM: Hypoxemic hypercarbic respiratory failure. REQUESTING PHYSICIAN: Omid Patel MD HISTORY PRESENT ILLNESS: The patient was being transported down to the ICU for hypercarbic respiratory failure. Called emergently regarding agonal-type respirations, comatose state and hypotension. Apparently this is an 86-year-old, male who suffers from COPD, recurrent aspiration who was recently hospitalized for aspiration pneumonia. Finished clindamycin about 10 days ago. Was discharged to a care facility for recuperation. Worsened over two days prior to admission and transferred here with a sodium 158. No other details available. The patient apparently suffers from past episodes of healthcare-associated C. difficile colitis, gout, dysphagia possibly due to upper airway damage from repeated aspiration, currently with a PEG in place. Has myeloproliferative disorder, presumably myeloid metaplasia and myelofibrosis, COPD, diastolic heart failure, gout, hypertension, coronary artery disease. ALLERGIES: None known. MEDICATIONS ON ADMISSION: 1. Albuterol inhaler. 2. Furosemide. 3. Melatonin. 4. Simvastatin. 5. Tiotropium. 6. Acetaminophen. SOCIAL HISTORY: Apparently no history of alcohol abuse. Was a former smoker. The patient was admitted to the medical [facility] where he was treated with tube feeding, free water, fluconazole for thrush. He was described as nonverbal and possibly even unresponsive yesterday with the attributing to him being unable to sleep all last night. In addition, had a mucous plug removed from the pharyngeal area. The patient remained nonverbal with the physician. assured him that he was communicating with her. Sodium remained high being 160 yesterday. Today, he was described as totally unresponsive. ABGs were obtained and showed a pO2 greater than 190 with pH of 7.04. While being transported, he was unresponsive and with markedly ineffective ventilation. PHYSICAL EXAMINATION ON ADMISSION: Showed a blood pressure of 87/40, pulse of 76, O2 sat on OxyMask of 95%. Respiratory rate in the mid to low 30s. Eyes: Conjunctivae are pink. Chest: Markedly distant breath sounds. No real use of the accessory muscles. Somewhat slight tracheal tug. Lung forte seemed relatively clear in the upper anterior lung field. Heart: Regular rhythm. Heart tones seem normal. Abdomen is soft. Quiet. Extremities: No pretibial edema. Apparently, the had been contacted. It was discussed that he would be a candidate for BiPAP. However, upon arrival in the ICU, it was felt that BiPAP would not be of value and that intubation was preferred. Given the 's initial intimation that everything be done though included only BiPAP per se and given his condition in extremis, it was decided to go ahead and intubate the patient. After intubation, the patient remained a bit hypotensive. Chest x-ray showed the endotracheal tube to be in good position, maybe slightly high. Blood pressure remained rather marginal. At times dropping into the 70s systolic. He was treated with IV fluids, notably saline wide open. Due to his relatively refractory hypertension, he was subsequently given vasopressin, albumin, steroids. Sedated with p.r.n. fentanyl. Condition stabilized to some extent with blood pressure rising to 112/40 and on an FiO2 of 50%, PEEP of 5, O2 sat was 100%. At this point, the arrived to the hospital. She was accompanied by, presumably, her friend. Had a odalis discussion with her. She understood the gravity of the situation. However, we discussed his wishes. He is not sure he would have wanted to be intubated, but after discussing the various options, it was decided that for the moment we will continue with a "limited intubation" where he is treated for a couple of days and see how he does. He certainly would not want a trach. Would not want long-term nursing care on a ventilator. Also, eschews CPR and electrical defibrillation. Broad-spectrum antibiotics have been instituted. Will continue the Diflucan, I guess, for the moment and start him on levofloxacin, linezolid, meropenem along with nebulized albuterol, holding the ipratropium because of the concretions obstructing the pharyngeal airway at time of intubation. PLAN: 1. Mechanical ventilation. 2. IV fluid resuscitation utilizing saline. 3. Broad-spectrum antibiotics. 4. Nebulized bronchodilators. 5. Limited intubation with DO NOT RESUSCITATE/NO ELECTRICAL SHOCK. Discussed the situation again with the patient's . She will be discussing with the rest of the family. She expects her son to arrive later today. TIME SPENT IN CRITICAL CARE: 90 minutes. TIME SPENT IN FAMILY CONFERENCE: 25 minutes.
--- NOTE | 2016-09-19 19:46 | NUR ---
INTUBATION/HEMODYNAMICS/SEDATION Patient arrived to CCU, room 2017, at 0758. Required emergent intubation, so Dr. Lees and Dr. Willams called to room. 20 mg Etomidate and 40 mg Rocuronium administered IV for sedation, along w/ 20 mcg of Fentanyl. Intubation was successful, after some difficulty and clearing of large mucoid plugs. Patient tolerated ventilator from time of intubation throughout the remainder of the shift. BP began to steadily decrease, despite multiple fluid boluses, so Levophed gtt initiated at 0.05 mcg/kg/min, but quickly increased to 0.3 mcg/kg/min. BPs remained below normal, so Vasopressin gtt added at 0.03 mcg/kg/min, but MAP continued <60. Phenylephrine added to pressor regimen, started at 0.5 mcg/kg/min, and pressures began to respond, w/ MAP maintaining >60. LR started for maintenance fluids at 200 mL/hr, multiple antibiotics started, along w/ Albumin. Patient hemodynamically stable for remainder of shift. Sedation started w/ Fentanyl at 25 mcg/hr, which patient tolerated until 1400, then became restless, requiring additional boluses, so increased to 50 mcg/hr. He sustained w/ RASS of -3, until 1800, then required further increase to 75 mcg/hr. Patient tolerating this sedation level at end of shift. Slightly febrile, fan turned on, Tylenol to be given. Will continue to monitor hemodynamics/vitals, respiratory status and sedation needs.
[2016-09-19] MEDS: Famotidine Inj 20 MG in IV Premix 1 EACH IV SCH (20:25)
[2016-09-19] MEDS: FLUCONAZOLE IV SCH (21:04)
[2016-09-19] MEDS ORDERED: Glucose 40% Oral Gel 15 Gm Tube PO PRN (22:30)
[2016-09-19] MEDS: Insulin LISPRO Low-Dose Scale SUBQ PRN (22:51)
[2016-09-20] VITALS (15 sets, daily range): BP systolic 100–131; BP diastolic 46–74; PULSE 63–93; RESP 16–39; O2SAT 95–100
[2016-09-20] MEDS: Albumin 25% 25 GM in IV Premix 1 EACH IV SCH ×3 (00:08→17:46)
[2016-09-20] MEDS: MethylprednisoLONE Sodium Succinate 40 mg/mL Inj IVPUSH SCH ×2 (00:12→09:39)
[2016-09-20] MEDS: Lactated Ringer's 1,000 ML IV SCH ×4 (03:42→17:46)
--- NOTE | 2016-09-20 05:26 | NUR ---
Mentation/Cardiac/Resp/GI Patient remains on vent BP stable 109/51 MAP 70 on Phenylephrine 0.2 mcg/kg/min, Levophed and Vasopressin titrated off, HR NSR 70's, vent settings 50%/5/500/20 at this time, awakens with stimulation and follows simple commands, no BM this shift, OG to LCS and no output this shift, good urine output, Fentanyl for sedation and pain, ABG and AM labs to be drawn, no distress noted, calm and cooperative this shift, restless at times but goes back to sleep, will continue to monitor. Addendum: 09/20/16 at 0540 by LAURA WELDON RN Amended: Links added.
--- NOTE | 2016-09-20 05:45 | ABG ---
DateTimeAnalyzed 05:39:00 -_ pH ____7.426 - 7.350 7.450 pCO2 ___31.8__ -mmHg 35.0 45.0 pO2 119 -mmHg 69.0 116 HCO3- ___20.5__ -mmol/L 22.0 26.0 ABE ___-2.9__ -mmol/L -2.0 2.0 tHb ____7.3__ -g/dL O2Hb ___96.9__ -% COHb ____1.8__ -% MetHb ____0.6__ -% sO2 ___99.3__ -% 25.0 FIO2 ___50.0__ -% PRVC 20 - PEEP ____5.0__ -cmH2O Vt __500.0__ -L Drawn By RB - Date/Time Notified____ 05:45:00 -_ Spontaneous_RR ___20.0__ -b/min Oxygen Device 1 VENTILATOR - Notified By RB - Notified Whom Bobby F, RN - B 740 -mmHg tO2 ___10.2__ -Vol% Fred test _Positive -
[2016-09-20] MEDS: Insulin LISPRO Low-Dose Scale SUBQ PRN (06:01)
[2016-09-20 07:54] LABS: Mean Corpuscular Volume 102.7 fL (81-100); Platelet Count 110 bil/L (150-400)
[2016-09-20 08:21] LABS: BASOPHILS % (AUTO) 2 % (0-3); EOSINOPHILS % (AUTO) 2 % (0-5); MONOCYTES % (AUTO) 3 % (4-12); NEUTROPHILS % (AUTO) 61 % (40-74)
[2016-09-20] MEDS ORDERED: 0.9% Sodium Chloride 500 ML IV ONE ×2 (08:25→09:20)
[2016-09-20] MEDS: Tiotropium 18mcg/Cap 5 Capsule Inhaler Kit INHALATION SCH (08:30)
[2016-09-20 08:53] LABS: Magnesium 2.1 mg/dL (1.6-2.6)
[2016-09-20] MEDS: Albuterol 1.25 mg/3 mL Inhalation Solution NEB SCH ×2 (09:11→21:12)
[2016-09-20] MEDS: Vasopressin Inj 20 UNIT in 0.9% Sodium Chloride 100 ML IV SCH ×2 (09:15→19:52)
[2016-09-20] MEDS: Vitamin B Complex/Vit C Tablet PEG SCH (09:30)
[2016-09-20] MEDS ORDERED: 0.9% Sodium Chloride 1,000 ML ONE (09:35)
--- NOTE | 2016-09-20 09:39 | DRSVH ---
PROCEDURE: X-RAY CHEST ONE VIEW, PORTABLE ([id number]) INDICATIONS: vent TECHNIQUE: One view of the chest was acquired. COMPARISON: [facility], CR, XR CHEST 1VW (PORTABLE), 09/19/2016, 8:44. FINDINGS: Surgical changes and devices: Nasogastric tube has been placed tip slightly extending into the stomac h and the side-port likely within the distal esophagus. Stable position of ETT. A left PICC present tip projected over the lower SVC. Lungs and pleura: Bibasilar airspace opacities, increased involving the left lung base. Small pleura l effusions. Mediastinum: Mediastinal contours appear normal. Heart size is normal. Bones and chest wall: No suspicious bony lesions. Overlying soft tissues appear unremarkable. IMPRESSION: 1. Support lines and tubes. 2. Small pleural effusions and basilar opacities consistent with compressive atelectasis versus pneum onia, slightly increased on the left. Dictated by: Cam Tenorio [facility] Interpreted: Hardy Du MD on 09/20/2016 at 9:38 Transcribed by: ROD on 09/20/2016 at 9:39 Approved by: Hardy Du M.D. on 09/21/2016 at 13:31
--- NOTE | 2016-09-20 11:12 | NUR ---
NUTRITION FOLLOW UP ASSESS: 86 yo M admitted for encephalopathy, increased confusion and dehydration. Pt with chronic PEG tube as pt with severe dysphagia and chronic aspiration. Pt is on Jevity 1.2 per call to SNF at 75 ml/hr. Pt was started on Jevity 1.5 at 65 mL/hr per MD order on 09/17. Pt transferred to CCU 09/19 and intubated. Pt remains awake and responsive. Rate reduced to 40 ml/hr per MD order. MD wants to continue w/ 40 ml/hr at this time. Pt has not had a BM. Recommended starting bowel regimen. PMHX: Myeloproliferative disorder, CHF, COPD, T2DM, HTN, HLD, CAD, Gout, severe dysphagia, c-diff colitis. LABS: Reviewed. Na 147, Cl 113, BUN 51, Sugar Drier 1.51, Gluc 297, Lactic Acid 3.7, Alb 2.8 (09/16) MEDS: Reviewed. Insulin, Albumin, Norepinephrine, Vit B Complex/Vitamin C GI: No BM reported yet. CURRENT WT: 74.8 kg BMI: 25.8 kg/m2 ADMIT WT: 64.7 kg (BMI: 22.3 kg/m2) NUTRITION SUPPORT (PEG): Jevity 1.5 at 40 mL/hr + 125 mL H2O flush every 3 hours as per MD order (2588 kcals, 110 g protein, and 2311 ML free H2O per day) HOME TF: Jevity 1.2 at 75 mL/hr + 90 ML H2O every 3 hours providing 1320 kcals, 56 g protein, and 1392 ML free H2O per day. EST. NEEDS: COPD, Vented (recalculated needs 09/20) Kcals: 0167-2680 kcal/day (20-25 kcal/kg BW) Pro: 95-115 g/day (1.5-1.8 g/kg BW) NUTRITION DIAGNOSIS: 1.) Inadequate oral intake related to severe dysphagia as evidenced by need for chronic PEG tube TF. --- PERSISTS NUTRITION INTERVENTION: 1.) Per MD verbal order, continue enteral nutrition of Jevity 1.5 @ 40 ml/hr to provide 1320 kcal and 56 g protein, meeting 100% of calorie needs and 59% protein needs. Flush w/ 90 ml H2O q 3 hrs to provide 1392 ml free H2O per day. 2.) When medically appropriate, recommend advancing Jevity 1.5 to 48 ml/hr to provide 1584 kcal and 67g protein, meeting 100% of calorie needs and 70% of protein needs. 3.) When medically appropriate and advancement tolerated, recommend adding one packet of Prosource TID to increase total protein intake to 100 g, meeting 100% of protein needs. MONITOR / EVAL: TF tolerance, labs, GI, nutritional status. Continue to monitor per high nutrition risk guidelines. Addendum: 09/20/16 at [address] Student documentation reviewed and I agree with the above assessment. Andrea Paredes, MS, RDN, CD
--- NOTE | 2016-09-20 11:45 | NUR ---
Palliative Care Palliative Care received verbal order from Dr Dubois 09/20/16 to assist with goals of care. Patient is an 86 year old man with COPD and recurrent aspiration. He was recently hospitalized for aspiration pneumonia on [facility] and was discharged to a SNF. Patient was admitted to [facility] from SNF on 09/16/16 due to worsening symptoms and increasing confusion days after being discharged from [facility]. He is intubated. Patient has recently been a resident at [facility] since his last hospitalization on [facility]. He was living at home with his prior to that. Kenyatta Coronado () [phone], Navin Coronado (son) [phone], Palliative Care to follow. Josiane De León
[2016-09-20] MEDS: Meropenem Inj 2,000 MG in 0.9% Sodium Chloride 100 ML IV SCH ×2 (12:01→21:04)
[2016-09-20] MEDS: Phenylephrine Inj 20,000 MCG in 0.9% Sodium Chloride 250 ML IV PRN (13:25)
--- NOTE | 2016-09-20 15:07 | CONS ---
[address] [address] CONSULTATION REPORT PATIENT: OVIDIO RAO : 1930 MR#: [id number] ADMIT: 09/16/2016 JOB ID: [id number] DATE OF SERVICE: 09/20/2016 INFECTIOUS DISEASE FOLLOWUP NOTE: I thank Dr. Willams for this timely consult. REASON FOR CONSULTATION: Strongyloides and bilateral pulmonary infiltrates. HISTORY OF THE PRESENT ILLNESS: The patient is a complex and debilitated 86-year-old gentleman known to me from an admission about one year ago at this facility. His past medical history is extremely complex in that he has underlying myelodysplastic disorder, congestive heart failure, severe COPD, severe and relapsing gout and generalized debility. He has had a wide variety of confirmed infections over the past couple of years including RSV and flu pneumonitis and C. difficile colitis. He has been treated many times for suspect pneumonias, though it is unclear to what degree. These have been confirmed. The patient was admitted on this occasion on September 16. He had recently been treated at [facility] for a possible aspiration pneumonia and had finished clindamycin at the end of August. Instead of going home he had been discharged to a SNF for recuperation. He was transferred back to this facility from the custodial facility and admitted on the with possible confusion associated with hypernatremia to 158, as well as evident thrush and increasing shortness of breath. During his first three days or so in the hospital, the patient continued to be somewhat obtunded, as well as have issues with the respiratory insufficiency. Yesterday, September 19, the patient was transferred to the ICU from the medical floor for hypoventilation and hypercapnic respiratory failure. He was not felt to be a BiPAP candidate and for that reason, the decision was made to intubate the patient. This was accomplished yesterday, and the patient has been on the mechanical ventilator since that time. The exact precipitants of the patient's decline on or about September 16 are quite unclear. The patient himself has open eyes but otherwise is not responsive on the ventilator and is currently actively being mechanically ventilated, as well as restrained. In review of the notes from the ED on the night of the , it looks like he was transferred here primarily because of decreasing level of consciousness, weakness and the extremely high sodium to 158. His white count is, of course, constantly high and that was not of great value in trying to determine if he had ongoing infection in addition to his hypernatremia. The patient has long since been fed by a PEG tube. Really, no additional history is available from the patient and even his spouse and others do not have any clear insights into what led to his admission here on the but it sounds as if his respiratory decline yesterday was quite unexpected. PAST MEDICAL HISTORY: 1. 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 White counts typically 20,000 to 30,000. 2. Organic heart disease: a. Congestive heart failure. b. Coronary artery disease. 3. Severe COPD. 4. Severe gout, with recent severe gout flare, according to his , in July. 5. History of endocarditis about 15 years ago. 6. Hyperlipidemia. 7. Hypertension. SOCIAL HISTORY: The patient is retired [employer] with worldwide service including the [employer] [facility] [employer]. He is a lifelong smoker, and only quit smoking very recently. He drinks alcohol socially but infrequently, and lives with his in [place], though he has been bouncing in and out of hospitals and custodial facilities in the area for the past couple of years. FAMILY HISTORY: Negative for tuberculosis including his parents and siblings. This history is from my earlier H and P on this patient, as he cannot tell me today. REVIEW OF SYSTEMS: Basically impossible, as the patient is intubated and sedated. His eyes are open but he does not shake his head appropriately or blink or in any other way enable conversation. PHYSICAL EXAMINATION: Reveals an afebrile gentleman who was afebrile between September 16 when he was admitted and September 19, but yesterday at 4:30 he spiked to 38.8, which was a new fever and the first of his hospital stay. Currently, he is 36.6. His pulse is 79, respiratory rate is ventilator dependent. Blood pressure 131/59. He is saturating quite well on fairly low FiO2 and now at 37. Patient's eyes are wide open but it is unclear to me if he is responsive or not, as he does not appear to follow any conversation or follow any commands. He does struggle when he is examined or touched, however. His head is without trauma. There is no temporal wasting. Eyes without scleral icterus or conjunctivitis. Nose normal. Oral endotracheal tube, oral gastric tube in good position. Neck without adenopathy or JVD. His intravenous lines are in good position without evidence of inflammation. His lungs are notable for decreased breath sounds bilaterally with rales at the bases. Cardiac tone: Regular rate and rhythm. The abdomen is notable for presence of a PEG tube. He does have a palpable spleen in his left upper quadrant. The right upper quadrant is unremarkable. There is no evidence for ascites. He does not have suprapubic fullness. A Nicholson catheter is present. The extremities are well perfused and without evidence of ischemia or cyanosis at this point. There is no peripheral edema. No evidence of synovitis or active gout is seen on examination of the joints. As noted, I cannot test the neurologic function, as the patient is not following commands, and he is fully restrained at this point. LABORATORIES: Include a white count 23,600, platelet count 110,000. White count includes 12% bands, as well as 5% myelocytes and 4% blasts. He has numerous nucleated red cells in his peripheral smear as well. His creatinine is 1.37, which is down during the course of this hospital stay. His LFT are completely normal. Albumin 3.2. Procalcitonin is currently 3.07 and that has climbed since 0.82 when he was admitted. Serologic studies from this admission include only a pending strongyloides. Of critical importance is the fact that the patient was found to have strongyloides during his admission exactly one year ago. At that time, I picked up on the positive strongyloides titer just after the patient left, as that is when the result came back. [facility] and faxed [facility] orders asking them to give him two weekly doses of ivermectin but I have no confirmation that was ever done. Micro includes negative blood cultures x4 sets, negative respiratory screen and a MRSA screen of the nares which is pending. Last year when he was here he had a negative MRSA screen of the nose but did have C. diff. IMAGING: The patient's chest x-ray when he came in on the showed basically no infiltrate. A chest x-ray today shows some very subtle bibasilar infiltrates which the radiologist said could be atelectasis or pneumonia. In comparing these two films, I am really not impressed that there is much in the way of a pulmonary infiltrate at this time. IMPRESSION: This is a very complex gentleman with underlying hematologic disease, as well as advanced chronic obstructive pulmonary disease, cardiac disease and a history of recurrent aspiration events. He was transferred here from a custodial facility with hypernatremia and confusion. After three or so days in the hospital, he deteriorated profoundly with respiratory failure requiring intubation yesterday. He initially appeared uninfected but yesterday had fever which was the first of his admission and also, there was a notable jump in his procalcitonin suggesting bacterial infection. The location of such a bacterial infection remains unclear. I am not inordinately impressed by his chest x-ray, but obviously he is always at risk for pulmonary infiltrates secondary to aspiration or other nosocomial process. Urinary tract infection seems unlikely in this patient and his abdomen is certainly benign which would make an abdominal process much less likely. Thrush was seen before he was intubated but thrush in and of itself rarely produces fever and certainly would not produce an elevated procalcitonin. One concern I have is that the patient could have disseminated strongyloides. He has received steroids many times in the past for exacerbations of chronic obstructive pulmonary disease and because of his debility and recurrent use of steroids, as well as his myeloproliferative disorder, he is a very high risk for disseminated strongyloides. At this point, we have no confirmation that this has been cured. Literature reflects that if strongyloides antibody is drawn about six months after successful treatment, it will turn negative, and we are waiting on a repeat strongyloides antibody we just arlene but this will be a very indirect way of proving that. RECOMMENDATIONS: 1. Will send sputum O and P for strongyloides. 2. Stool O and P for strongyloides will be ordered. 3. Repeat strongyloides antibody has been suggested and ordered by the house staff. 4. Sputum Gram stain and culture will be obtained. As the patient is currently intubated, this will be a easy to do. 5. I note the antibiotics he has been started on include fluconazole, which I presume is for the thrush that was noted earlier. He is also being treated with linezolid, as well as meropenem and levofloxacin. This would seem to be somewhat excessive, and will attempt to start to wean that back tomorrow. 6. BioFire multiplex PCR will be ordered. 7. Urine legionella and pneumococcal antigens will be ordered. 8. Ivermectin 15 mg will be given today with repeat in one week, and this has been discussed with the team. Thank you very much for allowing me to be involved in this complex case.
[2016-09-20] MEDS: fentaNYL 2,500 mCg/250 mL 2,500 MCG in IV Premix 1 EACH IV PRN (15:36)
--- NOTE | 2016-09-20 16:16 | PCM.CONPAL ---
Date of Service Sep 20, 2016 Date of Hospital Admission: Sep 16, 2016 at 16:19 Date of Palliative Consult: Sep 20, 2016 Requesting Provider: Crow Dubois MD Reason Palliative Care Consult: Goals of Care Discussion Hospital Unit @time of consult: Critical Care Palliative Care Recommendation Summary of palliative recommendations: -Symptom management (Pain/other) Dysphagia with nutrition and hydration thru PEG-unclear why he can get so dehydrated with this. Recurrent aspiration. Debility- reviewed progressive nature of this. 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 Hx of distant splenic rupture-- unclear the result of this--?splenectomy -DPOA/Advanced Directives/POLST-He and his have not completed paperwork for DPOAHC etc. She states she filled out a POLST stating no CPR but OK intubation and found the process a bit abrupt and out of the blue. -Family/emotional support-his is very supportive and she has excellent support from her son. She lost a daughter a few yrs ago. Offered family conference with use of speaker phone if helpful re including patients children. Disposition- consideration for [facility]. salvage determiner most likely NH Additional Medical Diagnoses with primary management by Hospitalist team include : Renal insuff Hypernatremia Anemia with Hgb 7 today Sepsis picture with antibiotics. Hx Cdiff Vent support for respiratory insuff Problems: End of Life Preferences No CPR but for now OK intubation, pressors, antibiotics etc Goals of Care Needs further discussion re QOL to establish [facility] Resuscitation Status Resuscitation Status: Limited Interventions (DNR--ok intubation) POLST Updates/Changes Artificially Admin Nutrition: Long-Term Nutrition by Tube Feeding POLST Discussed with: Spouse/Other . Symptom management: Agitation, Dyspnea Pt History History of Present Illness PCP Dr. Ethan Self Oncologist- Dr. Bruce and Sophia Referring MD Dr. 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 His states that he had been doing well, active and liked fixing engines until he was given hydroxyurea in Jul 2015 for increasing WBC/ PLTs. He developed severe diffuse gouty arthritis requiring hospitalization. This was followed by hospitalizations for sepsis, aspiration pneumonia and eventual placement of PEG in Sep at [facility]. Other dx at that time include diastolic CHF with EF of 55-60%. He required intubation at [facility] for 8 days then transferred to SNF and then home. He never returned to baseline but did have about 6 months home. walking with walker, could drive etc. Starting in Jul he started to weaken and landed back in [facility] with aspiration and sepsis-then off to SNF but became dehydrated, weaker and confused and was readmitted 09/16/16 at [facility]. He was noted to have decreasing mentation and increasing mucous plugging with a baseline of COPD became obtunded and required intubation. He is intubated and hx is taken from his , Kenyatta of 19 yrs. She is accompanied by her son and his partner. The patient has 3 children-Naivn (lives in [place]), Isaac and Brigette all living distantly. She states they had not had discussions since all of these illnesses since they didn't think this was going to happen again. She had debated authorizing intubation when driving to the hospital last noc but by the time she arrived-- he was intubated. 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 He has had several severe infections COPD, diastolic heart failure, Echo (09/13/15): LVEF 55-60% with diastolic septal bounce, but no other obvious focal wall motion abnormalities. Repeat ECHO--wnl. 2015 sepsis severe pneumonia and respiratory failure, requiring intubation and ICU hospitalization with influenza and respiratory syncytial virus, Dysphagia. Gout. Hypertension. Hyperlipidemia. Weakness requiring [facility] (SNF) admisison. Multivessel CAD Hx of endocarditis Social History Occupation: retired heavy duty diesel mechanic Family Members Issues: see HPI Living Situation: lives with his in [facility] Palliative Performance Scale PPS Ambulation: Reduced PPS Activity: Unable to do most activity PPS Self-Care: Occasional assistance necessary PPS Intake: Normal or reduced PPS Conscious Level: Full or confusion Performance Scale: 60% Allergy Allergies Reviewed: Yes Medications Current Medications: Current Medications Famotidine/Sodium Chloride 20 mg/ Premix 50 ml @ 100 mls/hr HS IV Last administered on 09/19/16 20:25; Admin Dose 100 MLS/HR; Start 09/18/16 at 21:00 Dextrose/Sodium Chloride 1,000 ml @ 75 mls/hr [id number] IV Last administered on 22:24; Admin Dose 75 MLS/HR; Start 09/18/16 at 19:35; Stop 09/19/16 at 07: 22; Status DC Dextrose/Water 1,000 ml @ 60 mls/hr [id number] IV; Start 09/19/16 at 07:20 Fentanyl 2500 mcg/ Premix 250 ml @ 5 mls/hr Q24H IV; Start 09/19/16 at 10:05; Stop 09/19/16 at 10:05; Status DC Fentanyl/Premix 250 ml @ 0 mls/hr Q0M PRN IV Last administered on 09/19/16 13:17 ; Admin Dose 2.5 MLS/HR; Start 09/19/16 at 10:05 Pharmacy Consult 1 ea 1 ea DAILY XX; Start 09/19/16 at 10:25; Stop 09/19/16 at 12: 30; Status DC Meropenem 2000 mg/ Sodium Chloride 100 ml @ 33.333 mls/ hr Q12 IV Last administered on 09/20/16 12:01; Admin Dose 33.333 MLS/HR; Start 09/19/16 at 10:47 Levofloxacin/ Dextrose/Premix 150 ml @ 100 mls/hr Q2D@0830 IV Last administered on 09/19/16 13:16; Admin Dose 100 MLS/HR; Start 09/19/16 at 10:48 Fentanyl Citrate 20 mcg 20 mcg PRN PRN IVPUSH; Start 09/19/16 at 09:00; Stop 09/19/16 at 11:00; Status DC Propofol [id number] mcg/Premix 100 ml @ 0 mls/hr Q0M PRN IV; Start 09/19/16 at 11:01 Vasopressin 20 unit/Sodium Chloride 101 ml @ 9.09 mls/hr Q11H7M IV Last administered on 09/19/16 21:05; Admin Dose 9.09 MLS/HR; Start 09/19/16 at 11:01 Fentanyl 2500 mcg/ Premix 250 ml @ 0 mls/hr Q24H PRN IV; Start 09/19/16 at 11:01 Norepinephrine/ Premix 250 ml @ 0 mls/hr Q0M PRN IV Last administered on 16:01; Admin Dose 39 MLS/HR; Start 09/19/16 at 11:01 Methylprednisolone Sodium Succinate 60 mg 60 mg Q8 IVPUSH Last administered on 09:39; Admin Dose 60 MG; Start 09/19/16 at 11:08 Albumin Human 25 gm/Premix 100 ml @ 1 mls/min Q8 IV Last administered on 09:40; Admin Dose 1 MLS/MIN; Start 09/19/16 at 11:10 Lactated Ringer's 1,000 ml @ 200 mls/hr Q5H IV Last administered on 09/20/16 13 :25; Admin Dose 200 MLS/HR; Start 09/19/16 at 12:05 Linezolid 600 mg/ Premix 300 ml @ 150 mls/hr Q12 IV Last administered on 09:29; Admin Dose 150 MLS/HR; Start 09/19/16 at 12:32 Phenylephrine HCl 79019 mcg/Sodium Chloride 252 ml @ 0 mls/hr Q0M PRN IV Last administered on 09/20/16 13:25; Admin Dose 0.2 MLS/HR; Start 09/19/16 at 12:39 Acetaminophen/ Premix 100 ml @ 400 mls/hr Q8 PRN IV; Start 09/19/16 at 16:20; Stop 09/20/16 at 16:21 Insulin Human Lispro Nutritional Dose recomm... Q6 PRN SUBQ Last administered on 09/20/16 06:01; Admin Dose 1 UNIT; Start 09/19/16 at 22:30 Dextrose/Water 25 ml ONCE PRN IV; Start 09/19/16 at 22:30 Scheduled Albuterol HFA (Proair HFA) 8.5 Gm Hfa.aer.ad 2 PUFFS INHALATION q 8 hours Allopurinol (Allopurinol) 100 Mg Tablet 200 MG PO DAILY Furosemide (Furosemide) 20 Mg Tab 20 MG PO DAILY Hydroxyurea (Hydroxyurea) 500 Mg Capsule 500 MG PO mon, wed, fri Lactobac Cmb #3/Fos/Pantethine (Probiotic & Acidophilus Cap) 1 Each Capsule 1 EACH PO BID Ranitidine (Ranitidine) 150 Mg Capsule 150 MG PO BID Simvastatin (Simvastatin) 10 Mg Tablet 10 MG PO HS Scheduled PRN Hydrocodone-Acetaminophen 5-325 mg (Hydrocodone-Acetaminophen 5-325 mg) 1 Each Tablet 1 TABLET PO Q4H PRN PRN For Pain Polyethylene Glycol 3350 (Miralax) 17 Gm Powd.pack 17 GM PO DAILY PRN PRN For Constipation Miscellaneous Medications Lactose-Free Food/Fiber (Jevity 1.5 Quoc Liquid) 1,000 Ml Liquid 1,000 ML PO Objective Findings Exam Vital Sign - Last Date Time Temp Pulse Resp B/P Pulse Ox O2 Delivery O2 Flow Rate FiO2 09/20/16 12:42 79 131/59 98 37 09/20/16 10:48 39 09/20/16 03:44 36.6 Mechanical Ventilator 09/19/16 04:25 3.00 Intake and Output 09/19/16 09/19/16 09/20/16 Cumulative From/Thru 15:00 23:00 07:00 09/16/16 17:12 - 09/20/16 05:20 Intake Total 5850 ml 3467 ml 30190 ml Output Total 1575 ml 1650 ml 9575 ml Balance 4275 ml 1817 ml 7626 ml Intake Oral 0 ml IV Total 5850 ml 3467 ml 75738 ml Tube Feeding 4140 ml Tube Irrigant 1824 ml Output Urine Total 1325 ml 1650 ml 9325 ml Gastric Drainage Total 250 ml 0 ml 250 ml # Bowel Movements 0 0 0 General: Chemically sedated HEENT: PERRLA Heart: Regular Rate/Rhythm Lungs: Diminished Abdomen: Bowel Tones x4, PEG/Feeding tube in place Neuro: Other (arouses and agitated, attempting to sit up when his comes in then sedated) Extremities: No Edema Lab/Diagnostics Lab and Imaging results reviewed in detail in EMR. Initial Na 168 now 153, CREAT - 1.83 now 1.37 WBC 29.6 now 23.6 Patient/Family Conference Members Present Family Members Present - kenyatta and her son and his partner Medical Team Members Present? [facility] Discussion/Goals of Care Discussion FAMILY UNDERSTANDING OF DISEASE: Extensive discussion going over the decline in the past 14 months including multiple hospitalizations, bouts of aspiration and sepsis even with a PEG. Reviewed increasing potential of decreasing independence, need for nursing home placement etc. She defines for him QOL is home not NH and definitely not in hospital or on vent. DISEASE PROGRESSION/EVIDENCE OF DECLINE: SYMPTOM BURDEN: GOALS: HOPES/WORRIES: Hope for respiratory recovery and be able to at least get back to SNF. She feels she has let him down by placing him in SNF (has been 2-3 of them) since he gets sick there. [facility] if he can get there. She knows it will be a couple of months. She fears having him home and he develop respiratory distress with his thick mucous plugs and she would not be able to help him. She hopes he will be able to recover enough to be able to communicate what his GOC might be FAMILY WISHES/VALUES: Delineated more by her son than by Kenyatta- Appears to be some criticism by his children of Kenyatta making health care decisions. He thinks they are just starting to understand the severity of disease that there father is dealing with. Palliative Care counselled: Time spent Total time 80 minutes; >50% face to face with patient and/or family, providing counselling regarding plans and recommendations, and in care coordination with his/her medical teams. Time included extensive discussion with and family. I also spent an additional [ ] minutes counseling for advanced care planning with the patient/the patients family/the surrogate decision maker. copies to: Ethan Self MD, Dulce Maria Lance MD Sep 20, 2016 16:16
[2016-09-20] MEDS: Dextrose 5% 1,000 ML IV SCH (16:40)
--- NOTE | 2016-09-20 16:56 | PCM.PNMED ---
Subjective Date of Service Sep 20, 2016 Subjective Overnight patient did well on pressure support and ventilation. ABG this a.m. pH 7.426, PCO2 of 31.8, PO2 of 119, bicarbonate of 20.5, saturation 99.3%. Patient is currently sedated only on fentanyl and this is being weaned this morning to allow for spontaneous breathing trial. Exam Vital Signs Vital Sign - Last Date Time Temp Pulse Resp B/P Pulse Ox O2 Delivery O2 Flow Rate FiO2 09/20/16 16:10 71 130/63 98 37 09/20/16 10:48 39 09/20/16 03:44 36.6 Mechanical Ventilator 09/19/16 04:25 3.00 Intake and Output 09/19/16 09/19/16 09/20/16 Cumulative From/Thru 15:00 23:00 07:00 09/16/16 17:12 - 09/20/16 05:20 Intake Total 5850 ml 3467 ml 49907 ml Output Total 1575 ml 1650 ml 9575 ml Balance 4275 ml 1817 ml 7626 ml Intake Oral 0 ml IV Total 5850 ml 3467 ml 14745 ml Tube Feeding 4140 ml Tube Irrigant 1824 ml Output Urine Total 1325 ml 1650 ml 9325 ml Gastric Drainage Total 250 ml 0 ml 250 ml # Bowel Movements 0 0 0 Exam GEN: Patient is awake and reactive to voice, turning his head and eyes, and intermittently following commands HEENT: Pupils are reactive, IJ in place, ET tube in place Cardiovascular: Regular rate and rhythm Respiratory: ABG was appropriate, lungs are clear with coarse sounds Abdomen: Nontender Extremities: No edema, Refill less than 2 seconds Neuro: Pupils as above, patient responding to voice and intermittently following commands Psych: Patient agitated and becomes anxious and breathing trial Skin: Thin, no excessive bruising IVs and Medications Medications Reviewed: Medications were reviewed in detail Lab and Diagnostics Result Diagram: 09/20/16 0709/20/16 07 X-Rays, CTs and MRIs CXR 09/19 personally/concurrently reviewed by Jorge 09/19 1. ET tube 4.6 cm superior to the rudi. 2. Increasing opacification in the left lung base which could represent atelectasis, pneumonia or aspiration. Dictated by: Dee Negron MD, PhD on 09/19/2016 at 9:10 12-lead ECG EKG personally/concurrently reviewed by Jorge rate 72, QTC 454 ms 09/16/16 * Poor quality data, interpretation may be affected . Sinus rhythm . Atrial premature complex * Possible left atrial enlargement * Nonspecific intraventricular conduction delay * Nonspecific repolarization abnormalities . When compared with ECG of 12-Sep-2015 9:03:05, * Significant rate decrease * Criteria for LAE is less prominent * ST-T abnormalities are less prominent Assessment & Plan 1. Acute hypercarbic respiratory failure 2. Sepsis with shock 3. Broad-spectrum antibiotics. 4. Limited intubation with DO NOT RESUSCITATE/NO ELECTRICAL SHOCK. Neurological: Patient awakes easily, not requiring propofol or Ativan, only being sedated on fentanyl 50-75. When patient is awake he is able to breathe on his own although becomes agitated and anxious breathin approximate 40 times a minute. Patient was resuscitated after breathing trial Cardiovascular: Patient remains on 0.3 of phenylephrine, but is very stable otherwise. We will attempt to wean down the phenylephrine throughout the day and overnight. Respiratory: ABG appropriate this morning as noted in subjective. Physical exam is unremarkable. Continue his breathing trial today was successful for 30- 60 minutes until patient became agitated and anxious. Discussion with respiratory therapy and impression is that the patient will do well off the vent. We will reassess in the morning with possible expiration the patient did well. GI: Patient has been without bowel movement for a number of days; we will initiate bowel regimen Infectious: The patient was transferred to the floor he had a white count of approximately 36.5 as likely due to hemoconcentration due to dehydration, however his pro-calcitonin is elevated at 3. Patient has extensive history of aspiration pneumonia, so far sputum and blood cultures are pending. So there is no left shift on his CBC. At this time we are continuing the patient on linezolid, meropenem, and levofloxacin and ordering a viral PCR. MRSA screen is not back yet. We will continue to monitor and treat as necessary Nutrition: Patient has a PEG tube electrical feedings will continue. We will consider adding bowel regimen. Disposition: The patient has improved drastically since yesterday and multiple counseling sessions with patient's on where to proceed. They would like him to go to [facility] after he is discharged from care to have increased respiratory attention due to his profound copious amount casts in his airway. Per discussion with this seems to be a chronic issue as occurring in the alf. As the patient is unable to swallow on his own aspiration as a continuing issue that is requiring the patient to be hospitalized on numerous occasions. Time spent 75 minutes VTE Mechanical Devices: Intermittant Pneumatic CD Resuscitation Status: Limited Interventions (DNR--ok intubation) Attending Statement The patient was seen and examined together with Dr. Lees on 09/20/2016 and I agree with the history, exam and plan as outlined in the note above. David Lees DO Sep 20, 2016 16:56 Gavin Willams MD Oct 12, 2016 09:11
[2016-09-20] MEDS ORDERED: 0.9% Sodium Chloride 250 ML ONE ×2 (17:40→17:41)
--- NOTE | 2016-09-20 18:03 | NUR ---
Propofol Propofol started at 1700 r/t agitation that was not controlled on 100mcg of fentanyl gtt. Pt calm in bed at this time. Pt opens eyes and squeezes hand, follows some commands. SBT completed for one hour today at 1000. TF restarted at 1400 at 5ml/hr. Nicholson put out 1500cc, urine sample sent. Large thick sputum suction from back of throat, resp viral sample sent. No stool, stool sample ordered. Q2 turning. Family at bedside most of the day.
--- NOTE | 2016-09-20 18:31 | PCM.PNMED ---
Subjective Date of Service Sep 20, 2016 Subjective Mr. 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 PEG placement in Sep at [facility], diastolic CHF, and multiple intubations and infections requiring hospitalizations. Recently at [facility] for aspiration and sepsis-then off to SNF but became dehydrated, weaker and confused and was readmitted 09/16/16 to [facility]. He was noted to have decreasing mentation and increasing mucous plugging with a baseline of COPD. Blood gas obtained, pH 7.04/PCO2 104 patient transferred to ICU and intubated. He is a severe aspiration risk and PEG tube dependent for feeding. During intubation it was noted he had pharynx hypopharynx and tracheal casts that were occluding his airway. After they were removed . He was ventilated properly his respiratory status was markedly improved.He is intubated and hx is taken from his , Kenyatta of 19 yrs. She is accompanied by her son and his partner. Overnight: No acute overnight events. Today: Patient did well on pressure support and ventilation. ABG this a.m. pH 7.426, PCO2 of 31.8, PO2 of 119, bicarbonate of 20.5, saturation 99.3%. Patient is currently sedated only on fentanyl and this is being weaned this morning to allow for spontaneous breathing trial. Exam Vital Signs Vital Sign - Last Date Time Temp Pulse Resp B/P Pulse Ox O2 Delivery O2 Flow Rate FiO2 09/20/16 06:27 37 09/20/16 04:09 69 104/47 100 09/20/16 03:44 36.6 20 Mechanical Ventilator 09/19/16 04:25 3.00 Intake and Output 09/19/16 09/19/16 09/20/16 Cumulative From/Thru 15:00 23:00 07:00 09/16/16 17:12 - 09/20/16 05:20 Intake Total 5850 ml 3467 ml 53429 ml Output Total 1575 ml 1650 ml 9575 ml Balance 4275 ml 1817 ml 7626 ml Intake Oral 0 ml IV Total 5850 ml 3467 ml 86942 ml Tube Feeding 4140 ml Tube Irrigant 1824 ml Output Urine Total 1325 ml 1650 ml 9325 ml Gastric Drainage Total 250 ml 0 ml 250 ml # Bowel Movements 0 0 0 Exam GEN: Patient is awake and reactive to voice, turning his head and eyes, and intermittently following commands. HEENT: Pupils are reactive, IJ in place, ET tube in place Cardiovascular: Regular rate and rhythm, no rubs, murmurs, gallops. Respiratory: ABG was appropriate, lungs are clear with coarse sounds, tolerating ventilator. Abdomen: Nontender, nondistended. Hypoactive bowel sounds. Extremities: No edema, Refill less than 2 seconds. Skin: Thin, no excessive bruising, rashes, excoriations, ulcers present. Neuro: Pupils as above, patient responding to voice and intermittently following commands. Psych: Patient agitated and becomes anxious on breathing trial IVs and Medications Medications Reviewed: Medications were reviewed in detail Lab and Diagnostics Result Diagram: 09/19/16 1100 09/19/162029 X-Rays, CTs and MRIs X-RAY CHEST ONE VIEW, PORTABLE IMPRESSION: 1. Support lines and tubes. 2. Small pleural effusions and basilar opacities consistent with compressive atelectasis versus pneumonia, slightly increased on the left. Dictated by: Cam Tenorio RRA Interpreted: Hardy Du MD on 09/20/2016 at 9: 38 X-RAY CHEST ONE VIEW, PORTABLE IMPRESSION: 1. ET tube 4.6 cm superior to the rudi. 2. Increasing opacification in the left lung base which could represent atelectasis, pneumonia or aspiration. Dictated by: Dee Negron MD, PhD on 09/19/2016 at 9:10 CT BRAIN WITHOUT CONTRAST IMPRESSION: 1. No acute intracranial abnormalities. Moderate periventricular and deep white matter chronic small vessel ischemic change. Dictated by: Pavel Bates M.D. on 09/16/2016 at 13:38 12-lead ECG EKG personally/concurrently reviewed by Jorge rate 72, QTC 454 ms 09/16/16 * Poor quality data, interpretation may be affected . Sinus rhythm . Atrial premature complex * Possible left atrial enlargement * Nonspecific intraventricular conduction delay * Nonspecific repolarization abnormalities . When compared with ECG of 12-Sep-2015 9:03:05, * Significant rate decrease * Criteria for LAE is less prominent * ST-T abnormalities are less prominent Cardiac Echo Impressions Echocardiogram Report Interpretation Summary The left ventricular cavity is small. Left ventricular systolic function is normal without focal wall motion abnormalities. The ejection fraction is estimated to be 55-60%. Assessment of diastolic parameters indicates normal left ventricular diastolic function and normal filling pressures. The right ventricle is normal in size and function. The right ventricular systolic pressure is estimated at 37 mmHg assuming a right atrial pressure of 8 mm Hg. Both atria are normal in size. There is no significant valvular heart disease. The aortic root is mildly dilated. The ascending aorta is mild-moderately enlarged. No real significant changes since prior echos study on 09/12/2015. Additional Diagnostics [facility] ABG DateTimeAnalyzed 05:39:00 -_ pH ____7.426 - 7.350 7.450 pCO2 ___31.8__ -mmHg 35.0 45.0 pO2 119 -mmHg 69.0 116 HCO3- ___20.5__ -mmol/L 22.0 26.0 Assessment & Plan Mr. Diogenes Coronado Junior is an 86-year-old gentleman with a past medical history of myeloproliferative disorder who was readmitted on 09/16/16 to [facility]. 09/19/16 he was noted to have decreasing mentation and increasing mucous plugging with a baseline of COPD. Blood gas obtained, pH 7.04/ PCO2 104 patient transferred to ICU and intubated. Hospital day 5. 1. Acute hypercarbic respiratory failure, not present on admission. Improving. - Likely 2nd to Airway blockage from casted secretions in the pharynx, hypopharynx, and trachea. - When patient is awake he is able to breathe on his own although becomes agitated and anxious breathing approximate 40 times a minute. - Patient mechanically intubated. 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 Will give 15mg Ivermectin 2 times one week apart. Strongyloides Ag pending. - ABG as above. - Spontaneous breathing trial today was successful for 30-60 minutes until patient became agitated and anxious. We will reassess in the morning with possible extubation if patient did well. 2. Acute Septic shock, not present on admission. Improving. - Patient has extensive history of aspiration pneumonia - Weening off Phenylephrine, 0.2 down from 0.3. evening 09/20. - WBC initially in the ICU 36.5, currently - likely 2nd to hemoconcentration due to dehydration, without left shift. - Pro-calcitonin 3. Following. - Lactic acid upon arrival to ICU 09/19 was 3.7, currently 1.8. - Sputum and blood cultures are pending. - Viral PCR pending. - MRSA pending. - linezolid, meropenem, and levofloxacin. 3. Acute exacerbation of COPD, present on admission. Improved. - Continue home tiotropium asx 4. Acute encephalopathy, not present on admission. Improved. - Reportedly patient normally conversant with his , he was waking up 09/18 enough to tell her he loved her. - Patient currently awakes easily, - Propofol 20mcg/Kg/min. 5. Hypernatremia, present on admission. Active. - Na 152 - goal 0.4meq/hr (1.6meq per BMP) - Lactated Ringers @ 200 ml/hr 6. Acute on chronic Chronic macrocytic anemia, present on admission. Active. - Likely due to hemoconcentration from dehydration. - Hgb currently 7.0. 7. Hypercalcemia, present on admission. Resolved. - Ca 8.6 - PTH inappropriately normal R PTH is pending however patient may have hyperparathyroidism 8. Acute kidney injury, present on admission. Improving. - Baseline Cr ~ 0.85 - Trending downward since admission 09/16 Cr 2.02. Currently - Cr 1.37, - Continue aggressive fluid resuscitation. 9. Leukocytosis present on admission. Active. - WBC 36.5 - likely 2nd to hemoconcentration due to dehydration, without left shift. - WBC 23.6. Trending downward. 10. Myelofibosis, present on admission. Active. 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 Bruce and [facility] 11. Chronic oral Thrush, present on admission. Active. - fluconazole IV 09/15-, - will switch to Mycelex Trosche or nystatin swish when the patient's more awake. 12. Severe dysphagia, present on admission. Active. - prior intubation / pna, - PEG- continue PEG tube feeding- jevity continuous 75, free water 125mls 13. Weakness and debility, present on admission. Active. - [facility] admission - PT/OT - Likely [facility] when stable enough. 14. Tremors, present on admission. Active. - no history of seizures will observe - per no AMS episodes until aug 2016, preceding tremors - Vit B complex 09/15 Social: lives with his in [facility] Patient/Family Conference - Kenyatta and her son and his partner. Defines for him "quality of life is home and not NH and definitely not in hospital or on vent." Chronic conditions: gout- no sign of this now. --consider uric acid after fluid resuscitation, allopurinol had been stopped at some point and per oncologist note, he wanted him back on it. Hypertension Hyperlipidemia History of CAD History of dCHF History of hospital-acquired C. difficile Acetaminophen for mild pain when necessary. Bowel regimen Senna and MiraLAX scheduled and PRN. Zofran when necessary for nausea and vomiting. SubQ heparin held for now. SCDs in place. High-risk medications: IV fentanyl Vent settings: ABG: I/Os:Nicholson in place. 1500ml out 09/20/14 Lines: PICC Drips: phenylephrine 0.2, propofol 20mcg/kg/min , fentanyl 75-100 Diet - Januvia by PEG tube, Lactose-Free Food/Fiber (Jevity 1.5 Quoc Liquid) 1, 000 Ml Liquid 1,000 ML PO GI prophylaxis famotidine renally dosed. Disposition: Likely here for > 2 midnights. Dependent upon respiratory status. Will be discharged [facility] when medically stable. Family discussions ongoing. Pain Evaluation: Adequate Pain Control VTE Mechanical Devices: Intermittant Pneumatic CD Resuscitation Status: DNR/DNI:Do Not Resuscitate/Intubate Attending Statement The patient was seen and examined together with Dr. Johnson on 09/20/2016 and I agree with the history, exam and plan as outlined in the note above. . COLIN JOHNSON DO Sep 20, 2016 07:44 Crow Dubois MD Sep 21, 2016 18:05
[2016-09-20 19:07] LABS: PTH RELATED PEPTIDE <1.1 pmol/L (.)
[2016-09-20] MEDS ORDERED: 0.9% Sodium Chloride 500 ML ONE (20:48)
[2016-09-20] MEDS: Famotidine Inj 20 MG in IV Premix 1 EACH IV SCH (21:05)
[2016-09-20] MEDS: FLUCONAZOLE IV SCH (21:10)
[2016-09-21] VITALS (14 sets, daily range): BP systolic 95–123; BP diastolic 43–55; PULSE 58–79; RESP 10–16; O2SAT 96–99
[2016-09-21] MEDS ORDERED: Glucose 40% Oral Gel 15 Gm Tube PO PRN (00:15)
[2016-09-21] MEDS: Lactated Ringer's 1,000 ML IV SCH ×2 (00:20→04:23)
[2016-09-21] MEDS: Albumin 25% 25 GM in IV Premix 1 EACH IV SCH ×3 (00:20→17:09)
[2016-09-21 02:15] LABS: Mean Corpuscular Hemoglobin 31.8 pg (27.0-35.0); Mean Corpuscular Volume 103.9 fL (81-100); Platelet Count 103 bil/L (150-400)
[2016-09-21 02:49] LABS: BASOPHILS % (AUTO) 0 % (0-3); EOSINOPHILS % (AUTO) 3 % (0-5); MONOCYTES % (AUTO) 2 % (4-12); NEUTROPHILS % (AUTO) 63 % (40-74)
[2016-09-21 02:58] LABS: Phosphorus 4.1 mg/dL (2.5-4.9)
[2016-09-21] MEDS: Propofol Inj 1,000,000 MCG in IV Premix 1 EACH IV PRN ×2 (03:20→09:55)
[2016-09-21] MEDS: Insulin LISPRO 300 Unit/3 mL Inj SUBQ SCH ×4 (03:29→19:57)
[2016-09-21] MEDS ORDERED: KCl 40 mEq/100 mL Premix (K 3 - 3.7 & Creat < 2) IV ONE (03:45)
--- NOTE | 2016-09-21 04:28 | ABG ---
DateTimeAnalyzed 04:21:00 -_ pH ____7.394 - 7.350 7.450 pCO2 ___33.3__ -mmHg 35.0 45.0 pO2 ___73.7__ -mmHg 69.0 116 HCO3- ___19.9__ -mmol/L 22.0 26.0 ABE ___-4.0__ -mmol/L -2.0 2.0 tHb ____7.1__ -g/dL O2Hb ___93.8__ -% COHb ____1.7__ -% MetHb ____0.8__ -% sO2 ___96.2__ -% 25.0 FIO2 ___37.0__ -% PRVC 16 - PEEP ____5.0__ -cmH2O Vt __500.0__ -L Drawn By RB - Date/Time Notified____ 04:27:00 -_ Spontaneous_RR ___16.0__ -b/min Oxygen Device 1 VENTILATOR - Notified By RB - Notified Whom Moses R, RN - B 748 -mmHg tO2 ____9.5__ -Vol% Fred test _Positive -
--- NOTE | 2016-09-21 05:54 | NUR ---
K/Micro K = 3.3 per morning labs. K replaced with 40meq of KCL per K/Mg replacement protocol. TELE has since became more regular SB with fewer PVCs. Positive blood culture reported from microbiology. Gram + Cocci resembling staph in 1 of 2 bottles. Pt not as restless since propofol has been added to fentanyl for pain and sedation while ventilated.
[2016-09-21] MEDS: Vasopressin Inj 20 UNIT in 0.9% Sodium Chloride 100 ML IV SCH ×3 (07:29→19:37)
[2016-09-21] MEDS ORDERED: 0.45% Sodium Chloride 500 ML IV SCH (08:15)
--- NOTE | 2016-09-21 08:44 | NUR ---
Faxed referral to [facility] and gave phone number to [facility] for family because they have more questions about once patient is accepted and transfers.
[2016-09-21] MEDS: Dextrose 5% 1,000 ML IV SCH ×2 (09:20→19:37)
[2016-09-21] MEDS: Tiotropium 18mcg/Cap 5 Capsule Inhaler Kit INHALATION SCH (10:06)
[2016-09-21] MEDS: Vitamin B Complex/Vit C Tablet PEG SCH (10:13)
[2016-09-21] MEDS: Meropenem Inj 2,000 MG in 0.9% Sodium Chloride 100 ML IV SCH ×2 (10:17→19:57)
--- NOTE | 2016-09-21 10:17 | PROG NOTE ---
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 INTERVAL HISTORY: Recall this is a patient with multiple medical problems including COPD and hematologic malignancy who was admitted for increasing shortness of breath and hypernatremia. He eventually was intubated. The patient has required vasopressor agents since admission, and he has had some fevers since his admission. So, the presumption has been he is suffering from some form of infection. It was unclear if his strongyloides that was diagnosed a year ago was ever adequately treated and that was part of the reason for yesterday's infectious disease consult, as well as a generalized workup for respiratory failure and possible pneumonia. The patient was, until yesterday, receiving linezolid, Levaquin and meropenem, and the linezolid was stopped yesterday, though that was not my recommendation. Overnight, the patient has been fairly stable. He is still on really low doses of phenylephedrine to support his blood pressure. He is on minimal ventilator support levels and is actually starting to wake up. Today, he will open his eyes when you call his name or touch him but he does not communicate in any other way. This case discussed extensively during ICU rounds and right now with the nursing staff. Note that I placed the patient in isolation this morning as well. PHYSICAL EXAMINATION: Reveals a chronically ill-appearing gentleman lying supine in his ICU bed. He is orally intubated. He has been afebrile now for about 24 hours. His T-max on the was 38.8. His pulse is in the 70s. He is breathing easily with 37% and 5 of PEEP, and saturating well. Blood pressure 117/54, though, as noted, he is on a bit of vasopressor agent. Urine output is excellent. He is not having any diarrhea, and there is no increased output from his endotracheal tube. Examination of the head reveals no new abnormalities. Eyes are wide open without conjunctivitis or scleral icterus. Oral endotracheal tube and orogastric tube in good position. Lungs notable for coarse breath sounds bilaterally, unchanged from previous cardiac tones. Regular rate and rhythm. No new murmurs appreciated. The abdomen is soft and nontender today. Nicholson catheter is present. Penis and scrotum appear normal. Lower extremities are well perfused without edema or cellulitis. LABORATORIES: Include white count stable at 28,000, 12% bands persist. His creatinine is 1.41. His LFT are normal. His procalcitonin is down a bit to 2.63. Urinalysis had no white cells on admission. Urine legionella and pneumococcal antigens that I ordered yesterday were negative. Strongyloides antibody is pending. Recall it was previously positive. Multiplex PCR on respiratory secretions negative. Nose culture positive for MRSA. One of eight blood cultures is now growing a staph species. It is too early to tell if it is guaiac positive or negative. Yesterday's chest radiograph showed bibasilar infiltrates, which could be atelectasis or pneumonia. IMPRESSION: This patient continues to be critically ill and requiring vasopressors, though at low doses. His respiratory status has improved to the point that he is near where he could be extubated. Whether or not he has a bacterial infection remains unclear but he has had fevers, profound leukocytosis and somewhat elevated procalcitonin which would all make one worry. The location of his infection remains unclear to me. There is still a question about if he could have disseminated strongyloides which could, of course, produce an infection that could even cross tissue planes and be very difficult to unravel. Also, strongly possible here would be a pulmonary infection. I see no evidence right now for a urinary tract infection, meningitis or an intra-abdominal process. RECOMMENDATIONS: 1. We await the stool and sputum O and P for strongyloides. 2. We await the repeat strongyloides. 3. We have given the first dose of ivermectin. Will give the second dose next week to cure his strongyloides. 4. We await the sputum Gram stain and culture. 5. I would continue the patient on fluconazole, linezolid and meropenem. We can go ahead and stop the levofloxacin which I have done. 6. Will closely watch this very complex patient with you. 7. His nose is positive for MRSA, so he in isolation, and the nurse and I have discussed this.
--- NOTE | 2016-09-21 10:20 | DRSVH ---
PROCEDURE: X-RAY CHEST ONE VIEW, PORTABLE ([id number]) INDICATIONS: intubated TECHNIQUE: One view of the chest was acquired. COMPARISON: None. FINDINGS: Surgical changes and devices: Stable position ETT and a nasogastric tube is in place tip traversing t he GE junction. Lungs and pleura: Interval increase in airspace opacity involving the left lung base. The right basi lar airspace opacity not significantly changed. Small pleural effusions. No pneumothorax. Mediastinum: Mediastinal contours appear normal. Heart size is normal. Bones and chest wall: No suspicious bony lesions. Overlying soft tissues appear unremarkable. IMPRESSION: Interval increase in airspace opacity within the left lung base. Dictated by: Cam Tenorio [facility] Interpreted: Hardy Du MD on 09/21/2016 at 10:16 Transcribed by: ROD on 09/21/2016 at 10:20 Approved by: Hardy Du M.D. on 09/21/2016 at 13:45
--- NOTE | 2016-09-21 10:30 | ABG ---
DateTimeAnalyzed 10:24:00 -_ pH ____7.191 - 7.350 7.450 pCO2 ___56.4__ -mmHg 35.0 45.0 pO2 ___82.1__ -mmHg 69.0 116 HCO3- ___20.8__ -mmol/L 22.0 26.0 ABE ___-6.6__ -mmol/L -2.0 2.0 tHb ____7.2__ -g/dL O2Hb ___93.3__ -% COHb ____1.4__ -% MetHb ____0.9__ -% sO2 ___95.5__ -% 25.0 FIO2 ___37.0__ -% Vt __380.0__ -L Drawn By NB - Date/Time Notified____ 10:29:00 -_ Oxygen Device 1 VENTILATOR - Notified By nb - Notified Whom David Brumfield - B 748 -mmHg tO2 ____9.6__ -Vol% Fred test _Positive -
[2016-09-21] MEDS: Albuterol 1.25 mg/3 mL Inhalation Solution NEB SCH ×2 (11:12→20:44)
[2016-09-21] MEDS: Phenylephrine Inj 20,000 MCG in 0.9% Sodium Chloride 250 ML IV PRN (12:01)
--- NOTE | 2016-09-21 13:03 | NUR ---
NUTRITION FOLLOW UP ASSESS: 86 YO male admitted with encephalopathy, increased confusion and dehydration. Pt requires chronic PEG tube feeding related to severe dysphagia and chronic aspiration. He remains intubated at this time; respiratory status has improved such that he may be extubated in the near future. The patient may possibly transfer to [place] in the near future; Palliative team consulted. Enteral feeding orders clarified for nursing clarity. PMHX: Myeloproliferative disorder, CHF, COPD, T2DM, HTN, HLD, CAD, Gout, severe dysphagia, c-diff colitis. LABS: Reviewed. Na 156, Chloride 120, BUN 54, Cr 1.41, Glu 19, Ca 8.2, Alb 3.8, Procalcitonin 2.63. MEDS: Reviewed. Insulin, albumin, nephro-yuki. GI: No BM reported since admission x 5 D. WT: 80.3 kg BMI: 27.0 kg/m2 ADMIT WT: 64.7 kg (BMI: 22.3 kg/m2) NUTRITION SUPPORT (PEG): Jevity 1.5 at 20 mL/hr + 90 mL H2O flush every 3 hours as per MD order (2588 kcals, 110 g protein, and 2311 ML free H2O per day) HOME TF: Jevity 1.2 at 75 mL/hr + 90 ML H2O every 3 hours providing 1320 kcals, 56 g protein, and 1392 ML free H2O per day. EST. NEEDS: COPD, Vented (recalculated needs 09/20) Kcals: 2592-3732 kcal/day (20-25 kcal/kg BW) Pro: 95-115 g/day (1.5-1.8 g/kg BW) NUTRITION DIAGNOSIS: 1) Inadequate oral intake related to severe dysphagia as evidenced by need for chronic PEG tube TF - PERSISTS. NUTRITION INTERVENTION: 1) Enteral feeding orders have been confusing for nursing. Orders rewritten as follows: advance Jevity 1.5 to 25 ml/hr. Advance 10 ml every 4 hr. to goal rate 48 ml/hr to provide 48 ml/hr to provide 1584 kcal and 67g protein, meeting 100% of calorie needs and 70% of protein needs. 3) In addition, recommend adding one packet of ProSource liquid protein three times per day to increase total protein intake to 100 g, meeting 100% of protein needs. MONITOR / EVAL: Enteral feeding advance / tolerance, labs, GI, nutritional status. Continue to monitor per high nutrition risk guidelines. Addendum: 09/22/16 at [address] Enteral feeding currently at goal rate 42 ml/hr, including 3 packets ProSource liquid protein per day. Follow up per high nutrition risk guidelines.
--- NOTE | 2016-09-21 16:06 | ABG ---
DateTimeAnalyzed 15:58:00 -_ pH ____7.250 - 7.350 7.450 pCO2 ___47.4__ -mmHg 35.0 45.0 pO2 ___80.4__ -mmHg 69.0 116 HCO3- ___20.1__ -mmol/L 22.0 26.0 ABE ___-6.1__ -mmol/L -2.0 2.0 tHb ____6.8__ -g/dL O2Hb ___94.0__ -% COHb ____1.7__ -% MetHb ____0.9__ -% sO2 ___96.5__ -% 25.0 FIO2 ___37.0__ -% PEEP ____5.0__ -cmH2O Set_RR ___10.0__ -b/min Vt __500.0__ -L Drawn By NB - Date/Time Notified____ 16:06:00 -_ Notified By NB - Notified Whom David Lees, MD - B 753 -mmHg tO2 ____9.2__ -Vol% Fred test _Positive -
--- NOTE | 2016-09-21 17:05 | PCM.PNMED ---
Subjective Date of Service Sep 21, 2016 Subjective Patient did well overnight. ABG this exam pH 7.25, PCO2 47.4, PO2 of 80.4, bicarbonate 20.1, saturation 96.5. Patient is doing well otherwise with decreasing phenylephrine. No fevers. Exam Vital Signs Vital Sign - Last Date Time Temp Pulse Resp B/P Pulse Ox O2 Delivery O2 Flow Rate FiO2 09/21/16 14:51 77 102/43 96 37 09/21/16 12:00 Ventilator 09/21/16 12:00 36.6 11 09/20/16 16:30 3.00 Intake and Output 09/20/16 09/20/16 09/21/16 Cumulative From/Thru 15:00 23:00 07:00 09/16/16 17:12 - 09/21/16 05:18 Intake Total 3798 ml 3168 ml 85639 ml Output Total 1500 ml 2400 ml 60471 ml Balance 2298 ml 768 ml 10522 ml Intake Oral 0 ml IV Total 3798 ml 2509 ml 58260 ml Tube Feeding 344 ml 4484 ml Tube Irrigant 315 ml 2139 ml Output Urine Total 1500 ml 2400 ml 26813 ml Gastric Drainage Total 250 ml # Bowel Movements 0 0 Exam GEN: Patient is awake and reactive to voice, turning his head and eyes, and intermittently following commands HEENT: Pupils are reactive, IJ in place, ET tube in place Cardiovascular: Regular rate and rhythm Respiratory: Breathing well on them. Abdomen: Nontender Extremities: No edema, Refill less than 2 seconds Neuro: Pupils as above, patient responding to voice and intermittently following commands Psych: Patient agitated and becomes anxious and breathing trial Skin: Thin, no excessive bruising IVs and Medications Medications Reviewed: Medications were reviewed in detail Lab and Diagnostics Result Diagram: 09/21/16 0200 09/21/16 1057 X-Rays, CTs and MRIs X-RAY CHEST ONE VIEW, PORTABLE IMPRESSION: 1. Support lines and tubes. 2. Small pleural effusions and basilar opacities consistent with compressive atelectasis versus pneumonia, slightly increased on the left. Dictated by: Cam Tenorio RRNatalio Interpreted: Hardy Du MD on 09/20/2016 at 9: 38 X-RAY CHEST ONE VIEW, PORTABLE IMPRESSION: 1. ET tube 4.6 cm superior to the rudi. 2. Increasing opacification in the left lung base which could represent atelectasis, pneumonia or aspiration. Dictated by: Dee Negron MD, PhD on 09/19/2016 at 9:10 CT BRAIN WITHOUT CONTRAST IMPRESSION: 1. No acute intracranial abnormalities. Moderate periventricular and deep white matter chronic small vessel ischemic change. Dictated by: Pavel Bates M.D. on 09/16/2016 at 13:38 12-lead ECG EKG personally/concurrently reviewed by Jorge rate 72, QTC 454 ms 09/16/16 * Poor quality data, interpretation may be affected . Sinus rhythm . Atrial premature complex * Possible left atrial enlargement * Nonspecific intraventricular conduction delay * Nonspecific repolarization abnormalities . When compared with ECG of 12-Sep-2015 9:03:05, * Significant rate decrease * Criteria for LAE is less prominent * ST-T abnormalities are less prominent Cardiac Echo Impressions Echocardiogram Report Interpretation Summary The left ventricular cavity is small. Left ventricular systolic function is normal without focal wall motion abnormalities. The ejection fraction is estimated to be 55-60%. Assessment of diastolic parameters indicates normal left ventricular diastolic function and normal filling pressures. The right ventricle is normal in size and function. The right ventricular systolic pressure is estimated at 37 mmHg assuming a right atrial pressure of 8 mm Hg. Both atria are normal in size. There is no significant valvular heart disease. The aortic root is mildly dilated. The ascending aorta is mild-moderately enlarged. No real significant changes since prior echos study on 09/12/2015. Additional Diagnostics [facility] DateTimeAnalyzed 05:39:00 -_ pH ____7.426 - 7.350 7.450 pCO2 ___31.8__ -mmHg 35.0 45.0 pO2 119 -mmHg 69.0 116 HCO3- ___20.5__ -mmol/L 22.0 26.0 Assessment & Plan Mr. Diogenes Coronado Junior is an 86-year-old gentleman with a past medical history of myeloproliferative disorder who was readmitted on 09/16/16 to [facility]. 09/19/16 he was noted to have decreasing mentation and increasing mucous plugging with a baseline of COPD. Blood gas obtained, pH 7.04/ PCO2 104 patient transferred to ICU and intubated. Hospital day 5. 1. Acute hypercarbic respiratory failure 2. Sepsis with shock 3. Broad-spectrum antibiotics. 4. Limited intubation with DO NOT RESUSCITATE/NO ELECTRICAL SHOCK. Neurological: Patient responsive. In last night along with propofol. Propofol being lifted intermittently with patient responsive. Cardiovascular: Patient requiring more phenylephrine this afternoon however he is otherwise stable. Respiratory: ABG would be appropriate for non-COPD patient but patient has dropped his bicarbonate to 20. Adjusted today to increase the CO2 to approximately 50 and will proceed with a PCO2 at this level for couple of days until the bicarbonate as increased. At that time will extubate patient. Spontaneous breathing trials are going well. Infectious: Patient very high white count which is resolved somewhat. Currently white count around 26. Patient was previously in septic shock and still requires some pressor support due to a low diastolic pressure. We will continue with antibiotics at this time. Patient was also MRSA positive on screening. Linezolid was started Nutrition: Patient has a PEG tube electrical feedings will continue. Disposition: Patient improving. Expect extubation next 2-3 days. Family has been updated numerous times during the day. Decision to move to hospice versus long-term care facility has been discussed. They will make determinations after patient is awake and extubated Time spent: 2 hours Pain Evaluation: Adequate Pain Control VTE Mechanical Devices: Intermittant Pneumatic CD Resuscitation Status: DNR/DNI:Do Not Resuscitate/Intubate Attending Statement The patient was seen and examined together with Dr. Lees on 09/21/2016 and I agree with the history, exam and plan as outlined in the note above. David Lees DO Sep 21, 2016 17:05 Gavin Willams MD Oct 12, 2016 09:17
--- NOTE | 2016-09-21 18:09 | NUR ---
Sedation/PST/Hemodynamics/Tube feeds/Activity Patient on Propofol at 25 mcgs/kg/min and Fentanyl at 75 mcgs/hr. Turned Propofol down to 15 for PST. Eventually patient became more agitated thrashing, so Propofol was placed up to 20. Patient is now resting comfortably w/o agitation. PST lasted about 3 hours until ABG obtained. Placed back on Vent with adjustments. Repeat ABG done late that showed improvement. Attempted to turn Phenylephrine off, but MAP fell below 60. Phenylephrine is running at .2 mcg/kg/min now. BP 107/48 currently. UOP this shift, 1100 mls. Tube feeds clarified by Dietary and Jevity was started at 1500 at 25 ml/hr with 90 ml q 3 hour flushes. Turning patient in bed q 2 hour.
--- NOTE | 2016-09-21 19:47 | PCM.PNMED ---
Subjective Date of Service Sep 21, 2016 Subjective Mr. 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 PEG placement in Sep at [facility], diastolic CHF, and multiple intubations and infections requiring hospitalizations. Recently at [facility] for aspiration and sepsis-then off to SNF but became dehydrated, weaker and confused and was readmitted 09/16/16 to [facility]. He was noted to have decreasing mentation and increasing mucous plugging with a baseline of COPD. Blood gas obtained, pH 7.04/PCO2 104 patient transferred to ICU and intubated. He is a severe aspiration risk and PEG tube dependent for feeding. During intubation it was noted he had pharynx hypopharynx and tracheal casts that were occluding his airway. After they were removed . He was ventilated properly his respiratory status was markedly improved.He is intubated and hx is taken from his , Kenyatta of 19 yrs. She is accompanied by her son and his partner. Overnight: No acute overnight events. Today: Patient did well on pressure support and ventilation. ABG this a.m. pH 7.426, PCO2 of 31.8, PO2 of 119, bicarbonate of 20.5, saturation 99.3%. Patient is currently sedated only on fentanyl and this is being weaned this morning to allow for spontaneous breathing trial. Exam Vital Signs Vital Sign - Last Date Time Temp Pulse Resp B/P Pulse Ox O2 Delivery O2 Flow Rate FiO2 09/21/16 17:52 77 102/43 96 37 09/21/16 16:00 36.5 10 Mechanical Ventilator 09/20/16 16:30 3.00 Intake and Output 09/20/16 09/20/16 09/21/16 Cumulative From/Thru 15:00 23:00 07:00 09/16/16 17:12 - 09/21/16 05:18 Intake Total 3798 ml 3168 ml 60205 ml Output Total 1500 ml 2400 ml 69177 ml Balance 2298 ml 768 ml 78476 ml Intake Oral 0 ml IV Total 3798 ml 2509 ml 22446 ml Tube Feeding 344 ml 4484 ml Tube Irrigant 315 ml 2139 ml Output Urine Total 1500 ml 2400 ml 73592 ml Gastric Drainage Total 250 ml # Bowel Movements 0 0 Exam GEN: Patient is awake and reactive to voice, turning his head and eyes, and intermittently following commands. HEENT: Pupils are reactive, IJ in place, ET tube in place Cardiovascular: Regular rate and rhythm, no rubs, murmurs, gallops. Respiratory: ABG was appropriate, lungs are clear with coarse sounds, tolerating ventilator. Abdomen: Nontender, nondistended. Hypoactive bowel sounds. Extremities: No edema, Refill less than 2 seconds. Skin: Thin, no excessive bruising, rashes, excoriations, ulcers present. Neuro: Pupils as above, patient responding to voice and intermittently following commands. Psych: Patient agitated and becomes anxious on breathing trial IVs and Medications Medications Reviewed: Medications were reviewed in detail Lab and Diagnostics Result Diagram: 09/21/16 0200 09/21/16 1057 X-Rays, CTs and MRIs X-RAY CHEST ONE VIEW, PORTABLE IMPRESSION: 1. Support lines and tubes. 2. Small pleural effusions and basilar opacities consistent with compressive atelectasis versus pneumonia, slightly increased on the left. Dictated by: Cam Tenorio [facility] Interpreted: Hardy Du MD on 09/20/2016 at 9: 38 X-RAY CHEST ONE VIEW, PORTABLE IMPRESSION: 1. ET tube 4.6 cm superior to the rudi. 2. Increasing opacification in the left lung base which could represent atelectasis, pneumonia or aspiration. Dictated by: Dee Negron MD, PhD on 09/19/2016 at 9:10 CT BRAIN WITHOUT CONTRAST IMPRESSION: 1. No acute intracranial abnormalities. Moderate periventricular and deep white matter chronic small vessel ischemic change. Dictated by: Pavel Bates M.D. on 09/16/2016 at 13:38 12-lead ECG EKG personally/concurrently reviewed by Jorge rate 72, QTC 454 ms 09/16/16 * Poor quality data, interpretation may be affected . Sinus rhythm . Atrial premature complex * Possible left atrial enlargement * Nonspecific intraventricular conduction delay * Nonspecific repolarization abnormalities . When compared with ECG of 12-Sep-2015 9:03:05, * Significant rate decrease * Criteria for LAE is less prominent * ST-T abnormalities are less prominent Cardiac Echo Impressions Echocardiogram Report Interpretation Summary The left ventricular cavity is small. Left ventricular systolic function is normal without focal wall motion abnormalities. The ejection fraction is estimated to be 55-60%. Assessment of diastolic parameters indicates normal left ventricular diastolic function and normal filling pressures. The right ventricle is normal in size and function. The right ventricular systolic pressure is estimated at 37 mmHg assuming a right atrial pressure of 8 mm Hg. Both atria are normal in size. There is no significant valvular heart disease. The aortic root is mildly dilated. The ascending aorta is mild-moderately enlarged. No real significant changes since prior echos study on 09/12/2015. Additional Diagnostics [facility] ABG DateTimeAnalyzed 05:39:00 -_ pH ____7.426 - 7.350 7.450 pCO2 ___31.8__ -mmHg 35.0 45.0 pO2 119 -mmHg 69.0 116 HCO3- ___20.5__ -mmol/L 22.0 26.0 Assessment & Plan Respiratory: Infectious: Patient very high white count which is resolved somewhat. Currently white count around 26. Patient was previously in septic shock and still requires some pressor support due to a low diastolic pressure. We will continue with antibiotics at this time. Patient was also MRSA positive on screening. Linezolid was started Disposition: Patient improving. Expect extubation next 2-3 days. Family has been updated numerous times during the day. Decision to move to hospice versus long-term care facility has been discussed. They will make determinations after patient is awake and extubated Mr. Diogenes Coronado Junior is an 86-year-old gentleman with a past medical history of myeloproliferative disorder who was readmitted on 09/16/16 to [facility]. 09/19/16 he was noted to have decreasing mentation and increasing mucous plugging with a baseline of COPD. Blood gas obtained, pH 7.04/ PCO2 104 patient transferred to ICU and intubated. Hospital day 6. 1. Acute hypercarbic respiratory failure, not present on admission. Improving. - Likely 2nd to Airway blockage from casted secretions in the pharynx, hypopharynx, and trachea. - When patient is awake he is able to breathe on his own although becomes agitated and anxious breathing approximate 40 times a minute. - Patient mechanically intubated. 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 Will give 15mg Ivermectin 2 times one week apart. Strongyloides Ag pending. - Dr. Burris with ICU pulmonology following, recommendations and time appreciated. - Dr. Marcelino with Infectious disease following, recommendations and time appreciated. - ABG as above. - Bicarbonate dropped to 20. Adjusted vent settings today to increase the CO2 to approximately 50 and will proceed with a PCO2 at this level for couple of days until the bicarbonate as increased. At that time will extubate patient. - Spontaneous breathing trials are going well. 2. Acute Septic shock, not present on admission. Improving. - Blood pressure with wide pulse pressure of 102/43. 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 - Patient has extensive history of aspiration pneumonia- - Weening off Phenylephrine, 0.2 down from 0.3. evening 09/20. - WBC initially in the ICU 36.5, currently - likely 2nd to hemoconcentration due to dehydration, without left shift. - Pro-calcitonin 2.63, Following. - Lactic acid upon arrival to ICU 09/19 was 3.7, currently 1.8. - Sputum and blood cultures are pending. - Viral PCR huggins-negative. - Nasal screen for MRSA was positive. Patient currently in appropriate isolation precautions. - linezolid, meropenem, and levofloxacin, Fluconazole. - Currently awaiting lab results Strongyloides. Has received first dose of ivermectin 15 mg and will receive his second and final dose next week. 3. Acute exacerbation of COPD, present on admission. Improved. - Continue home tiotropium asx 4. Acute encephalopathy, not present on admission. Improved. - Reportedly patient normally conversant with his , he was waking up 2/7 enough to tell her he loved her. - Patient currently awakes easily, - Propofol 20mcg/Kg/min. 5. Hypernatremia, present on admission. Active. - Na 152 - goal 0.4meq/hr (1.6meq per BMP) - Lactated Ringers @ 200 ml/hr 6. Acute on chronic Chronic macrocytic anemia, present on admission. Active. - Likely due to hemoconcentration from dehydration. - Hgb currently 7.4 up from 7.0. 7. Hypercalcemia, present on admission. Resolved. - Ca 8.6 - PTH inappropriately normal R PTH is pending however patient may have hyperparathyroidism 8. Acute kidney injury, present on admission. Improving. - Baseline Cr ~ 0.85 - Trending downward since admission 09/16 Cr 2.02. Currently - Cr 1.37, - Continue aggressive fluid resuscitation. 9. Leukocytosis present on admission. Active. - WBC 36.5 - likely 2nd to hemoconcentration due to dehydration, without left shift. - WBC 23.6. Trending downward. 10. Myelofibosis, present on admission. Active. 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 Bruce and Sophia 11. Chronic oral Thrush, present on admission. Active. - fluconazole IV 09/15-, - will switch to Mycelex Trosche or nystatin swish when the patient's more awake. 12. Severe dysphagia, present on admission. Active. - prior intubation / pna, - PEG- continue PEG tube feeding- jevity continuous 75, free water 125mls 13. Weakness and debility, present on admission. Active. - From [facility] (SNF) admission - PT/OT - Likely [facility] when stable enough. 14. Tremors, present on admission. Active. - no history of seizures will observe - per no AMS episodes until aug 2016, preceding tremors - Vit B complex 09/15 Social: lives with his in [facility] Patient/Family Conference - Kenyatta and her son and his partner. Defines for him "quality of life is home and not NH and definitely not in hospital or on vent." Chronic conditions: gout- no sign of this now. --consider uric acid after fluid resuscitation, allopurinol had been stopped at some point and per oncologist note, he wanted him back on it. Hypertension Hyperlipidemia History of CAD History of dCHF History of hospital-acquired C. difficile Acetaminophen for mild pain when necessary. Bowel regimen Senna and MiraLAX scheduled and PRN. Zofran when necessary for nausea and vomiting. SubQ heparin held for now. SCDs in place. High-risk medications: IV fentanyl Vent settings: ABG: as above. I/Os:Nicholson in place. 3500 ml out 09/21/14 Lines: PICC Drips: phenylephrine 0.1, propofol 20mcg/kg/min , fentanyl 0 Diet - Januvia by PEG tube, Lactose-Free Food/Fiber (Jevity 1.5 Quoc Liquid) 1, 000 Ml Liquid 1,000 ML PO GI prophylaxis famotidine renally dosed. Disposition: Likely here for > 2 midnights. Dependent upon respiratory status. Will be discharged likely to [facility] when medically stable. Family discussions ongoing. Pain Evaluation: Adequate Pain Control VTE Mechanical Devices: Intermittant Pneumatic CD Resuscitation Status: DNR/DNI:Do Not Resuscitate/Intubate Attending Statement The patient was seen and examined together with Dr. Johnson on 09/21/2016 and I agree with the history, exam and plan as outlined in the note above. . COLIN JOHNSON DO Sep 21, 2016 19:34 Crow Dubois MD Sep 22, 2016 08:22
[2016-09-21] MEDS: Famotidine Inj 20 MG in IV Premix 1 EACH IV SCH (19:57)
[2016-09-21] MEDS ORDERED: 0.9% Sodium Chloride 500 ML ONE (20:06)
[2016-09-21] MEDS: FLUCONAZOLE IV SCH (20:18)
[2016-09-21] MEDS ORDERED: 0.9% Sodium Chloride 250 ML ONE (21:36)
--- NOTE | 2016-09-21 23:04 | PCM.PALLBR ---
Palliative Care Recommendation Summary of palliative recommendations: 09/21/16 In discussion with his -her hope is to get him into [facility] for more intensive rehab and treatment than could be gotten at SNF. She might by then be able to accept that if he again deteriorates it is due to severity of debility and dysphagia which she is not able to accept at this time. She acknowledges that she is not able to take care of him at home but also does not feel that he gets adequate attention at SNF. Reviewed that there is discussion regarding getting him extubated although that would not be today Raised the question if extubated would be appropriate to reintubate. She continues to want to ask the patient and not take on the burden of this decision herself. Reviewed hope that this is the case but if not she would be his decision maker. Her son who is very supportive of her understands the severity of his stepfather 's disease as well as her inability to completely grasp it. Goal will be to continue ongoing discussion.. -Symptom management (Pain/other) Dysphagia with nutrition and hydration thru PEG-unclear why he can get so dehydrated with this. Recurrent aspiration. Debility- reviewed progressive nature of this. 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 Hx of distant splenic rupture-- unclear the result of this--?splenectomy -DPOA/Advanced Directives/POLST-He and his have not completed paperwork for DPOAHC etc. She states she filled out a POLST stating no CPR but OK intubation and found the process a bit abrupt and out of the blue. Apparently CODE STATUS had previously been decided in the discussion at [facility] with DO NOT RESUSCITATE but OK intubation. -Family/emotional support-his is very supportive and she has excellent support from her son. She lost a daughter a few yrs ago. Offered family conference with use of speaker phone if helpful re including patients children. Disposition- consideration for [facility] snf most likely [facility] Additional Medical Diagnoses with primary management by Hospitalist team include : Renal insuff Hypernatremia Anemia with Hgb 7 today Sepsis picture with antibiotics. Hx Cdiff Vent support for respiratory insuff Problems: End of Life Preferences No CPR but for now OK intubation, pressors, antibiotics etc Goals of Care Patient's is not able to make decisions regarding goals of care at this time. She is hoping that he will be able to participate in this discussion in another day or 2. Resuscitation Status Resuscitation Status: DNR/DNI:Do Not Resuscitate/Intubate POLST Updates/Changes Artificially Admin Nutrition: Long-Term Nutrition by Tube Feeding POLST Discussed with: Spouse/Other Total time 60 minutes; >50% face to face with patient and/or family, providing counselling regarding plans and recommendations, and in care coordination with his/her medical teams. I also spent an additional [ ] minutes counseling for advanced care planning with the patient/the patients family/the surrogate decision maker. copies to: Ethan Self MD Palliative Brief Note Date of Service Sep 21, 2016 . Met with patient's -- pt is still intubated and not responsive due to sedation. Continues to have respiratory insuff with PH 7.19/56/88 today. Agitated if not sedated Again discussion with team and his . She if focused on the thickness of his secretions and a sense that she has let him down by not getting him good care at [facility] etc. She is convinced there is something to do about his pulm status that will then resolve this. Her hope is to get him into [facility] for more intensive rehab and treatment than could be gotten at SNF. She might by then be able to accept that if he again deteriorates it is due to severity of debility and dysphagia which she is not able to accept at this time. Dulce Maria Cesar MD Sep 21, 2016 23:03
[2016-09-22] VITALS (13 sets, daily range): BP systolic 99–113; BP diastolic 44–53; PULSE 75–87; RESP 10–18; O2SAT 94–100
[2016-09-22] MEDS: Propofol Inj 1,000,000 MCG in IV Premix 1 EACH IV PRN ×3 (00:01→17:29)
[2016-09-22] MEDS: Albumin 25% 25 GM in IV Premix 1 EACH IV SCH (00:01)
[2016-09-22 03:08] LABS: Mean Corpuscular Hemoglobin 32.5 pg (27.0-35.0); Mean Corpuscular Volume 106.7 fL (81-100); Platelet Count 71 bil/L (150-400)
[2016-09-22 03:41] LABS: BASOPHILS % (AUTO) 0 % (0-3); EOSINOPHILS % (AUTO) 4 % (0-5); MONOCYTES % (AUTO) 2 % (4-12); NEUTROPHILS % (AUTO) 57 % (40-74)
[2016-09-22 03:44] LABS: Mean Corpuscular Hemoglobin 31.4 pg (27.0-35.0); Mean Corpuscular Volume 106.6 fL (81-100); Platelet Count 77 bil/L (150-400)
[2016-09-22 04:06] LABS: BASOPHILS % (AUTO) 0 % (0-3); EOSINOPHILS % (AUTO) 3 % (0-5); MONOCYTES % (AUTO) 6 % (4-12); NEUTROPHILS % (AUTO) 54 % (40-74)
[2016-09-22] MEDS: Insulin LISPRO 300 Unit/3 mL Inj SUBQ SCH ×4 (04:13→19:49)
[2016-09-22] MEDS: fentaNYL 2,500 mCg/250 mL 2,500 MCG in IV Premix 1 EACH IV PRN (04:40)
--- NOTE | 2016-09-22 05:25 | ABG ---
DateTimeAnalyzed 05:19:25 -_ pH ____7.276 - pCO2 ___42.4__ -mmHg pO2 ___56.2__ -mmHg HCO3- ___19.7__ -mmol/L ABE ___-6.4__ -mmol/L tHb ____7.4__ -g/dL O2Hb ___88.5__ -% COHb ____1.6__ -% MetHb ____0.4__ -% sO2 ___90.3__ -% FIO2 ___35.0__ -% PEEP ____5.0__ -cmH2O Set_RR 10 -b/min Vt __500.0__ -L Drawn By AF - Date/Time Notified____ 05:25:00 -_ Notified By AF - Notified Whom ____Nurse - B 764 -mmHg K+ ____3.8__ -mmol/L tO2 ____9.3__ -Vol% OrderingPhysicianInitials bak - Fred test N/A -
[2016-09-22] MEDS ORDERED: 0.45% Sodium Chloride 500 ML IV ONE (05:55)
--- NOTE | 2016-09-22 06:22 | NUR ---
OG/Skin/FiO2 While bathing it was noticed patient having increasingly red buttocks. Mepilex preventatively placed. Braaden assessment completed and as a result of was placed on the pressure ulcer protocol. Pt's OG unsecured sometime during the night (plastic tape loosened) and had un-advanced to 20. OG pulled and replaced with single attempt. Gastric contents aspirated and auscultated air in stomach. Tube feedings turned back on and is at goal of 42ml/hour of Jevity 1.5 with 90ml Q3Hour flushes of H20. Morning ABG completed showing little improvement in values. FiO2 increased by RT from 35% to 45%.
[2016-09-22] MEDS: Albuterol 1.25 mg/3 mL Inhalation Solution NEB SCH ×4 (07:51→20:17)
[2016-09-22] MEDS: Tiotropium 18mcg/Cap 5 Capsule Inhaler Kit INHALATION SCH (08:26)
[2016-09-22] MEDS: Meropenem Inj 2,000 MG in 0.9% Sodium Chloride 100 ML IV SCH ×2 (08:42→20:11)
[2016-09-22] MEDS: Famotidine Inj 20 MG in IV Premix 1 EACH IV SCH ×2 (08:42→20:01)
[2016-09-22] MEDS: Vitamin B Complex/Vit C Tablet PEG SCH (08:47)
--- NOTE | 2016-09-22 09:24 | PCM.PNMED ---
Subjective Date of Service Sep 22, 2016 Subjective Mr. 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 PEG placement in Sep at [facility], diastolic CHF, and multiple intubations and infections requiring hospitalizations. Recently at [facility] for aspiration and sepsis-then off to SNF but became dehydrated, weaker and confused and was readmitted 09/16/16 to [facility]. He was noted to have decreasing mentation and increasing mucous plugging with a baseline of COPD. Blood gas obtained, pH 7.04/PCO2 104 patient transferred to ICU and intubated. He is a severe aspiration risk and PEG tube dependent for feeding. During intubation it was noted he had pharynx hypopharynx and tracheal casts that were occluding his airway. After they were removed . He was ventilated properly his respiratory status was markedly improved.He is intubated and hx is taken from his , Kenyatta of 19 yrs. She is accompanied by her son and his partner. Overnight: No acute overnight events. Today: Patient did well on pressure support and ventilation. Patients mental status continues changed. Currently no tracking or following commands. Exam Vital Signs Vital Sign - Last Date Time Temp Pulse Resp B/P Pulse Ox O2 Delivery O2 Flow Rate FiO2 09/22/16 04:05 74 111/52 94 35 09/22/16 03:08 36.8 10 Mechanical Ventilator 09/20/16 16:30 3.00 Intake and Output 09/21/16 09/21/16 09/22/16 Cumulative From/Thru 15:00 23:00 07:00 09/16/16 17:12 - 09/22/16 06:17 Intake Total 2808 ml 3072 ml 09504 ml Output Total 1100 ml 1700 ml 44355 ml Balance 1708 ml 1372 ml 07049 ml Intake Oral 0 ml IV Total 2300 ml 2349 ml 97400 ml Tube Feeding 238 ml 453 ml 5175 ml Tube Irrigant 270 ml 270 ml 2679 ml Output Urine Total 1100 ml 1700 ml 10132 ml Gastric Drainage Total 250 ml # Bowel Movements 1 0 1 Exam GEN: Patient is awake and reactive to voice, turning his head and eyes, and intermittently following commands. HEENT: Pupils are reactive, IJ in place, ET tube in place Cardiovascular: Regular rate and rhythm, no rubs, murmurs, gallops. Respiratory: ABG was appropriate, lungs are clear with coarse sounds, tolerating ventilator. Abdomen: Nontender, nondistended. Hypoactive bowel sounds. Extremities: No edema, Refill less than 2 seconds. Skin: Thin, no excessive bruising, rashes, excoriations, ulcers present. Neuro: Pupils as above, patient responding to voice and intermittently following commands. Psych: Patient agitated and becomes anxious on breathing trial IVs and Medications Medications Reviewed: Medications were reviewed in detail Lab and Diagnostics Result Diagram: 09/22/1631809/22/16 0334 X-Rays, CTs and MRIs X-RAY CHEST ONE VIEW, PORTABLE IMPRESSION: 1. Support lines and tubes. 2. Small pleural effusions and basilar opacities consistent with compressive atelectasis versus pneumonia, slightly increased on the left. Dictated by: Cam Tenorio RRA Interpreted: Hardy Du MD on 09/20/2016 at 9: 38 X-RAY CHEST ONE VIEW, PORTABLE IMPRESSION: 1. ET tube 4.6 cm superior to the rudi. 2. Increasing opacification in the left lung base which could represent atelectasis, pneumonia or aspiration. Dictated by: Dee Negron MD, PhD on 09/19/2016 at 9:10 CT BRAIN WITHOUT CONTRAST IMPRESSION: 1. No acute intracranial abnormalities. Moderate periventricular and deep white matter chronic small vessel ischemic change. Dictated by: Pavel Bates M.D. on 09/16/2016 at 13:38 12-lead ECG EKG personally/concurrently reviewed by Jorge rate 72, QTC 454 ms 09/16/16 * Poor quality data, interpretation may be affected . Sinus rhythm . Atrial premature complex * Possible left atrial enlargement * Nonspecific intraventricular conduction delay * Nonspecific repolarization abnormalities . When compared with ECG of 12-Sep-2015 9:03:05, * Significant rate decrease * Criteria for LAE is less prominent * ST-T abnormalities are less prominent Cardiac Echo Impressions Echocardiogram Report Interpretation Summary The left ventricular cavity is small. Left ventricular systolic function is normal without focal wall motion abnormalities. The ejection fraction is estimated to be 55-60%. Assessment of diastolic parameters indicates normal left ventricular diastolic function and normal filling pressures. The right ventricle is normal in size and function. The right ventricular systolic pressure is estimated at 37 mmHg assuming a right atrial pressure of 8 mm Hg. Both atria are normal in size. There is no significant valvular heart disease. The aortic root is mildly dilated. The ascending aorta is mild-moderately enlarged. No real significant changes since prior echos study on 09/12/2015. Additional Diagnostics [facility] ABG DateTimeAnalyzed 05:39:00 -_ pH ____7.426 - 7.350 7.450 pCO2 ___31.8__ -mmHg 35.0 45.0 pO2 119 -mmHg 69.0 116 HCO3- ___20.5__ -mmol/L 22.0 26.0 Assessment & Plan Mr. Diogenes Coronado Junior is an 86-year-old gentleman with a past medical history of myeloproliferative disorder who was readmitted on 09/16/16 to [facility]. 09/19/16 he was noted to have decreasing mentation and increasing mucous plugging with a baseline of COPD. Blood gas obtained, pH 7.04/ PCO2 104 patient transferred to ICU and intubated. Hospital day 7. 1. Acute hypercarbic respiratory failure, not present on admission. Improving. - Likely 2nd to Airway blockage from casted secretions in the pharynx, hypopharynx, and trachea. - When patient is awake he is able to breathe on his own although becomes agitated and anxious breathing approximate 40 times a minute. - Patient mechanically intubated. 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 Will give 15mg Ivermectin 2 times one week apart. Strongyloides Ag pending. - Dr. Burris with ICU pulmonology following, recommendations and time appreciated. - Dr. Marcelino with Infectious disease following, recommendations and time appreciated. - ABG as above. - Bicarbonate dropped to 20. Adjusted vent settings 09/21 to increase the CO2 to approximately 50 and will proceed with a PCO2 at this level for couple of days until the bicarbonate as increased. At that time will extubate patient. - Spontaneous breathing trials on hold for now. 2. Acute Septic shock, not present on admission. Improving. - Blood pressure with wide pulse pressure of 102/43. 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 - Patient has extensive history of aspiration pneumonia- - Weening off Phenylephrine, 0.2 down from 0.3. evening 09/20. - WBC initially in the ICU 36.5, currently - likely 2nd to hemoconcentration due to dehydration, without left shift. - Pro-calcitonin 2.63, Following. - Lactic acid upon arrival to ICU 09/19 was 3.7, currently 1.8. - Sputum and blood cultures are pending. - Viral PCR huggins-negative. - Nasal screen for MRSA was positive. Patient currently in appropriate isolation precautions. - linezolid, meropenem, and levofloxacin, Fluconazole. - Currently awaiting lab results Strongyloides. Has received first dose of ivermectin 15 mg and will receive his second and final dose next week. 3. Acute exacerbation of COPD, present on admission. Improved. - Continue home tiotropium asx 4. Acute encephalopathy, not present on admission. Improved. - Reportedly patient normally conversant with his , he was waking up 2/7 enough to tell her he loved her. - Patient currently awakes easily, - Propofol 20mcg/Kg/min. - Palliative team following and working with family, time and recommendations appreciated 5. Acute thrombocytopenia, not present on admission. Active. - Platelets 77 (09/22) down from 170 day before. 6. Hypernatremia, present on admission. Active. - Na 154 - goal 0.4meq/hr (1.6meq per BMP) - IV NS @ 80 mls/hr - [facility] this morning at 2 AM, laboratory reportedly did not stop IV fluids when drawing. 7. Acute on chronic Chronic macrocytic anemia, present on admission. Active. - Likely due to hemoconcentration from dehydration. - Hgb currently 7.1 8. Hypercalcemia, present on admission. Resolved. - Ca 8.6 - PTH inappropriately normal R PTH is pending however patient may have hyperparathyroidism 9. Acute kidney injury, present on admission. Improving. - Baseline Cr ~ 0.85 - Trending downward since admission 09/16 Cr 2.02. Currently - Cr 1.37, - Continue aggressive fluid resuscitation. 10. Leukocytosis present on admission. Active. - WBC 36.5 - likely 2nd to hemoconcentration due to dehydration, without left shift. - WBC 23.6. Trending downward. 11. Myelofibosis, present on admission. Active. 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 Bruce and Sophia 12. Chronic oral Thrush, present on admission. Active. - fluconazole IV 09/15-, - will switch to Mycelex Trosche or nystatin swish when the patient's more awake. 13. Severe dysphagia, present on admission. Active. - prior intubation / pna, - PEG- continue PEG tube feeding- jevity continuous 75, free water 125mls 14. Weakness and debility, present on admission. Active. - From [facility] ([facility]) admission - PT/OT - Likely [facility] when stable enough. 15. Tremors, present on admission. Active. - no history of seizures will observe - per no AMS episodes until aug 2016, preceding tremors - Vit B complex 09/15 Social: lives with his in [facility] Patient/Family Conference - Kenyatta and her son and his partner. Defines for him "quality of life is home and not NH and definitely not in hospital or on vent." Chronic conditions: gout- no sign of this now. --consider uric acid after fluid resuscitation, allopurinol had been stopped at some point and per oncologist note, he wanted him back on it. Hypertension Hyperlipidemia History of CAD History of dCHF History of hospital-acquired C. difficile Acetaminophen for mild pain when necessary. Bowel regimen Senna and MiraLAX scheduled and PRN. Zofran when necessary for nausea and vomiting. SubQ heparin held for now. SCDs in place. High-risk medications: IV fentanyl Vent settings: ABG: as above. I/Os:Nicholson in place. 3500 ml out 09/21/14 Lines: PICC Drips: phenylephrine 0.1, propofol 20mcg/kg/min , fentanyl 0 Diet - Januvia by PEG tube, Lactose-Free Food/Fiber (Jevity 1.5 Quoc Liquid) 1, 000 Ml Liquid 1,000 ML PO GI prophylaxis famotidine renally dosed. Disposition: Likely here for > 2 midnights. Dependent upon respiratory status. Will be discharged likely to [facility] SNF when medically stable. Family discussions ongoing. Pain Evaluation: Adequate Pain Control VTE Mechanical Devices: Intermittant Pneumatic CD Resuscitation Status: DNR/DNI:Do Not Resuscitate/Intubate Attending Statement The patient was seen and examined together with Dr. Johnson on 09/22/2016 and I agree with the history, exam and plan as outlined in the note above. . COLIN JOHNSON DO Sep 22, 2016 07:45 Crow Dubois MD Sep 23, 2016 08:08
--- NOTE | 2016-09-22 10:08 | DRSVH ---
PROCEDURE: X-RAY CHEST ONE VIEW, PORTABLE ([id number]) INDICATIONS: intubated TECHNIQUE: One view of the chest was acquired. COMPARISON: [facility], CR, XR CHEST 1VW (PORTABLE), 09/21/2016, 5:30. FINDINGS: Surgical changes and devices: The endotracheal tube, NG tube, and left PICC are unchanged. Lungs and pleura: Lung volumes are low. Basilar consolidation or atelectasis is unchanged from the pr ior study. Mediastinum: Mediastinal contours appear normal. Heart size is normal. Bones and chest wall: No suspicious bony lesions. Overlying soft tissues appear unremarkable. IMPRESSION: Unchanged basilar consolidation or atelectasis when compared with the prior study. Dictated by: Serene Fisher M.D. on 09/22/2016 at 10:06 Approved by: Serene Fisher M.D. on 09/22/2016 at 10:07
[2016-09-22] MEDS: Ipratropium 0.02% 0.5 mg/2.5 mL Inhalation Solution NEB SCH ×3 (11:11→20:16)
[2016-09-22] MEDS: Potassium Chloride 20 mEq/15 mL 15mL Oral Soln PO SCH ×2 (11:18→20:02)
--- NOTE | 2016-09-22 11:23 | PROG NOTE ---
[address] [address] PROGRESS NOTE PATIENT: OVIDIO RAO : 1930 MR#: [id number] ADMIT: 09/16/2016 JOB ID: [id number] DATE: 09/22/2016 PULMONARY CRITICAL CARE FOLLOWUP NOTE: PROBLEM: 1. Acute on chronic ventilatory failure. 2. Sepsis. 3. Mucus plugging of the airways. SUBJECTIVE: None. OBJECTIVE: Temp 36, pulse 74 to 85. Respiratory rate 16 to 18, set at 10. Blood pressure 112/52, O2 sat on FiO2 of 45% and PEEP of 5 is 96%. I and O shows 5.9 liters in, 3.5 liters out. General appearance: Sedated on ventilator. There is a small air leak. Chest shows fair breath sounds bilaterally. Diffuse crackles throughout both lung forte. Peak inspiratory pressure in the low 20s. Unable to obtain a plateau. Heart: Regular rhythm. Heart tones seem normal. Abdomen is soft. Nondistended. Some bowel tones. Extremities: 1 to 2+ pretibial edema. LABORATORY: Shows a white count of 28,000 with 54 polymorphonuclears, 13 bands, 12 metamyelocytes, 5 nucleated RBC, 13 lymphocytes, 6 monocytes. Hemoglobin stable at 7.1. Platelet count stable at 77,000. Had been falling. This is the first slight increase. Sodium 154 and slowly falling. Potassium 3.8, chloride 121, CO2 is 20, BUN 53 and relatively stable, creatinine 1.13, glucose stable at 186, calcium 7.6 with albumin of 4.2. Bilirubin, transaminases and alkaline phosphatase normal. Phosphorus normal at 4.1 yesterday. Urine legionella antigen is negative. Sputum Gram stain shows many polys, rare mixed normal dedra. No growth to date. Chest x-ray pending. Arterial blood gases on FiO2 of 35%, PEEP of 5, respiratory rate set at 10 but measured at 13 to 16 and tidal volume 500, shows a pO2 of 56, pCO2 of 42, pH of 7.27. FiO2 has subsequently been increased to 0.45. ASSESSMENT: 1. Acute on chronic hypercarbic ventilatory failure. Slowly increasing as bicarbonate with current ventilator settings. However, he is overbreathing the machine. Would like a slightly lower minute ventilation. He is receiving 500 mL. Somewhat of a generous tidal volume for this patient. Suspect we can decrease that tidal volume which will help us retain bicarbonate but also help with problems with shortness of breath on weaning trials. 2. Hypoxemia. Somewhat hypoxemic. A bit unusual for patients with pure chronic obstructive pulmonary disease ventilatory failure to require much in terms of oxygen. Concern is about his mucous plugging. May be elements of aspiration as well. Cannot rule out an underlying pneumonic process as well. He is on broad-spectrum antibiotics. Blood cultures positive but appeared to be growing a coag-negative staphylococcus. Will continue the current regimen of antibiotics pending identification of various bugs. 3. Hypernatremia. Resolving with some free water administration. 4. Hypokalemia. Will interfere with stabilization of his acid-base status. Will add potassium to his tube feeding. PLAN: 1. Vent change. Decrease tidal volume to 475. Will maybe decrease to 450 this evening to give a smaller tidal volume which will help with both his CO2, as well as preclude any problems with dyspnea on attempts to wean. 2. Change b.i.d. albuterol to q.6 h. low-dose albuterol, as well as ipratropium. 3. KCl via OG tube 40 mEq now and repeat in about 12 hours. 4. Discontinue IV albumin. 5. Continue current regimen of antibiotics. 6. Continue current IV fluid regimen. TIME SPENT: Time spent so far in critical care 63 minutes.
--- NOTE | 2016-09-22 12:34 | NUR ---
Social Work: Continued Discharge Planning Data & Assessment: Shot Blast Equipment Operator attempted to call Yue with [facility] admissions on 09/21 and 09/22 to find out if the patient was accepted for admission, but no one answered. SW left voicemail requesting a call back. SW notified patient's and family that we are waiting for a call back from [facility] to notify us if the patient has been accepted or not. Plan: It is likely that the patient will discharge to [facility] if accepted. Patient's is in agreement with patient going to SNF if he is not accepted to [facility]. NIYA and UR specialist will continue to try and contact [facility] for an answer. SW will continue to follow patient and keep patient's family updated. Lisette Ashford, SADAF, ACMansi
[2016-09-22] MEDS: Vasopressin Inj 20 UNIT in 0.9% Sodium Chloride 100 ML IV SCH (15:16)
[2016-09-22] MEDS: Phenylephrine Inj 20,000 MCG in 0.9% Sodium Chloride 250 ML IV PRN (15:44)
--- NOTE | 2016-09-22 16:51 | DRSVH ---
PROCEDURE: X-RAY KUB ([id number]) INDICATIONS: Abdominal Distention TECHNIQUE: One view of the abdomen acquired. COMPARISON: None. FINDINGS: Surgical changes and devices: Percutaneous gastrostomy tube is projected over the epigastric region. An NG tube is present, the tip of which is projected over the gastric fundus. Bowel: Bowel gas pattern is normal. Soft tissues: No suspicious abdominal calcifications. Visualized solid organ contours appear normal in size. Bones: No suspicious bony lesions. IMPRESSION: No acute intra-abdominal findings. Dictated by: Serene Fisher M.D. on 09/22/2016 at 16:49 Approved by: Serene Fisher M.D. on 09/22/2016 at 16:49
[2016-09-22] MEDS: Chlorhexidine 0.12% 15 mL Oral Solution MT SCH ×3 (17:29→23:50)
[2016-09-22] MEDS: Dextrose 5% 1,000 ML IV SCH (17:30)
--- NOTE | 2016-09-22 18:10 | NUR ---
Tube Feeding: P: leaking around preexisting Jtube I: OG tube feeding was stopped. No residual. MD was notified. Ordered abdominal X-ray. E: No acute intraabdominal changes noted in abdominal x-ray. Tube feeding Jevity 1.5 continued at goal rate of 48mL/hr with 90mL H2O flush q3hrs. Kenyatta agreed to bring in tubing for patients Jtube tomorrow morning.
[2016-09-22] MEDS: FLUCONAZOLE IV SCH (20:02)
[2016-09-22] MEDS: Sodium Chloride LOK Flush 10 mL Syringe IVFLUSH PRN ×2 (20:11)
[2016-09-23] VITALS (17 sets, daily range): BP systolic 101–121; BP diastolic 46–55; PULSE 73–85; RESP 12–17; O2SAT 98–100
[2016-09-23] MEDS: Vasopressin Inj 20 UNIT in 0.9% Sodium Chloride 100 ML IV SCH ×3 (02:17→19:26)
[2016-09-23] MEDS: Insulin LISPRO 300 Unit/3 mL Inj SUBQ SCH ×4 (02:30→20:30)
[2016-09-23] MEDS: Ipratropium 0.02% 0.5 mg/2.5 mL Inhalation Solution NEB SCH ×4 (02:42→20:32)
[2016-09-23] MEDS: Albuterol 1.25 mg/3 mL Inhalation Solution NEB SCH ×4 (02:42→20:32)
[2016-09-23] MEDS: Chlorhexidine 0.12% 15 mL Oral Solution MT SCH ×6 (03:06→23:22)
[2016-09-23 05:31] LABS: Mean Corpuscular Hemoglobin 31.6 pg (27.0-35.0); Mean Corpuscular Volume 107.5 fL (81-100); Platelet Count 60 bil/L (150-400)
--- NOTE | 2016-09-23 05:34 | ABG ---
DateTimeAnalyzed 05:28:00 -_ pH ____7.319 - 7.350 7.450 pCO2 ___40.1__ -mmHg 35.0 45.0 pO2 ___99.5__ -mmHg 69.0 116 HCO3- ___20.0__ -mmol/L 22.0 26.0 ABE ___-5.1__ -mmol/L -2.0 2.0 tHb ____6.8__ -g/dL O2Hb ___96.1__ -% COHb ____1.6__ -% MetHb ____1.0__ -% sO2 ___98.7__ -% 25.0 FIO2 ___45.0__ -% PRVC 10 - PEEP ____5.0__ -cmH2O Set_RR ___10.0__ -b/min Vt __470.0__ -L Drawn By MM - Date/Time Notified____ 05:33:00 -_ Spontaneous_RR ___17.0__ -b/min Oxygen Device 1 VENTILATOR - Notified By MM - Notified Whom RN - B 769 -mmHg tO2 ____9.4__ -Vol% Fred test N/A -
[2016-09-23 05:52] LABS: Magnesium 2.3 mg/dL (1.6-2.6)
--- NOTE | 2016-09-23 06:12 | NUR ---
Critical Lab Hgb 6.8 (Verified with repeat draw per MD order). Dr. Dotson paged regarding the final value and order obtained to transfuse 2 units of PRBCs.
[2016-09-23 06:15] LABS: MONOCYTES % (AUTO) 1 % (4-12); NEUTROPHILS % (AUTO) 57 % (40-74)
[2016-09-23] MEDS: 0.9% Sodium Chloride 250 ML IV SCH ×2 (06:15→19:27)
[2016-09-23 06:16] LABS: BASOPHILS % (AUTO) 0 % (0-3); EOSINOPHILS % (AUTO) 1 % (0-5)
[2016-09-23 06:38] LABS: Mean Corpuscular Hemoglobin 31.8 pg (27.0-35.0); Mean Corpuscular Volume 107.5 fL (81-100)
[2016-09-23] MEDS: Famotidine Inj 20 MG in IV Premix 1 EACH IV SCH ×2 (07:44→19:32)
[2016-09-23] MEDS: Dextrose 5% 1,000 ML IV SCH ×2 (07:44→19:26)
[2016-09-23] MEDS: Vitamin B Complex/Vit C Tablet PEG SCH (07:46)
[2016-09-23] MEDS: Meropenem Inj 2,000 MG in 0.9% Sodium Chloride 100 ML IV SCH ×2 (07:59→19:32)
--- NOTE | 2016-09-23 08:35 | DRSVH ---
PROCEDURE: X-RAY CHEST ONE VIEW, PORTABLE ([id number]) INDICATIONS: intubated patient/Chest SOB TECHNIQUE: One view of the chest was acquired. COMPARISON: [facility], CR, XR CHEST 1VW (PORTABLE), 09/22/2016, 4:42. FINDINGS: Surgical changes and devices: Endotracheal tube with the tip approximately 3 cm above the rudi. Lungs and pleura: Enteric tube is present with the tip below gas esophageal junction are not included on the study. There is a left PICC line with the tip projecting in the lower SVC. Improved aeration of the retrocardiac left lung base. No definite new consolidation. Low lung volumes. Mediastinum: Mediastinal contours appear normal. Heart size is normal. Bones and chest wall: No suspicious bony lesions. Overlying soft tissues appear unremarkable. IMPRESSION: Stable to minimally improved retrocardiac opacities. Dictated by: Yo Tucker M.D. on 09/23/2016 at 8:31 Approved by: Yo Tucker M.D. on 09/23/2016 at 8:35
[2016-09-23] MEDS: Propofol Inj 1,000,000 MCG in IV Premix 1 EACH IV PRN ×2 (11:10→23:21)
[2016-09-23] MEDS: fentaNYL 2,500 mCg/250 mL 2,500 MCG in IV Premix 1 EACH IV PRN (11:12)
[2016-09-23] MEDS: Phenylephrine Inj 20,000 MCG in 0.9% Sodium Chloride 250 ML IV PRN (12:15)
[2016-09-23 15:30] LABS: Mean Corpuscular Hemoglobin 31.6 pg (27.0-35.0)
--- NOTE | 2016-09-23 17:38 | PROG NOTE ---
[address] [address] PROGRESS NOTE PATIENT: OVIDIO RAO : 1930 MR#: [id number] ADMIT: 09/16/2016 JOB ID: [id number] DATE: 09/23/2016 PROBLEMS: 1. 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 2. Sepsis. 3. Mucus plugging of the airways. 4. Hypertension. 5. Hypernatremia. SUBJECTIVE: None. OBJECTIVE: Temperature 36.7, though he had a temp spike of 37.6 earlier today and again yesterday morning to 38, pulse 70-80, respiratory rate 15 with ventilator set at 10, blood pressure 121/54 on phenylephrine, do not recall the dose. O2 sat on FiO2 of 45%, PEEP of 5 is 99%. I and O shows 5.3 liters in, 3.2 liters out. General appearance: Sedated. Minimally responsive. Looks chronic ill and severely debilitated. Chest: Moderately decreased breath sounds. Some scattered expiratory wheezes. Diffuse coarse crackles throughout both inspiratory and expiratory phase of respiration. Heart: Regular rhythm. Heart tones seem normal. Abdomen is soft. Nondistended. Quiet. Extremities: Some pretibial edema and 2+ pedal edema. LABORATORY DATA: Shows a white count of 16,500 with differential pending. Hemoglobin was 6.8. Received 2 units of blood and hemoglobin now 8. MCV 107. Platelet count 62,000 and seems to have stabilized after a decrease. Sodium 154, potassium 4.4, chloride 123, carbon dioxide 20, BUN 46, creatinine 0.95. Glucose 163. Calcium 7.4, phosphorus 2, magnesium 2.3, transaminases are normal as is alkaline phosphatase. Albumin 3.6. Arterial blood gases on a tidal volume of 470, rate of 10 with the patient breathing 15, PEEP of 5 and an FiO2 of 0.45 showed a pO2 of 99, pCO2 40, pH 7.31. Bicarbonate now 20. Peak inspiratory pressure with a tidal volume of 470, PEEP 5 is about 26, plateau 21, PEEP set at 5, measured at 5. Chest x-ray reported to show some possible slight improvement in the retrocardiac infiltrate. ASSESSMENT: 1. Hypoxemic hypercarbic respiratory failure. Some improvement. Still not retaining bicarb very quickly. We will continue to decrease his ventilation. Currently breathing so dropping his rate would not be very useful. Will decrease his tidal volume a bit and see if that helps. Suspect that from a purely compensated respiratory acidosis, he could be extubated in the next day or so. However, his overall condition with numerous multifactorial insults probably makes that quite optimistic. Would wonder about possibly doing bronchoscopy as he had an overwhelming upper airway obstruction with inspissated secretions. They have not particularly grown anything out, but it is hard to believe he does not have infection and hard to believe he is not aspirating to some degree. 2. Hypoxemic hypercarbic respiratory failure. At best, will need BiPAP at extubation. Might need this lifelong especially at night. We will see how he does. Seems awfully weak to me, and I suspect his ventilatory muscles are extremely weak. Would consider having respiratory therapy to peak inspiratory and expiratory pressures prior to extubation and maybe even an MVE as I suspect his respiratory muscle stamina is virtually nil and he is at extremely high risk for recurrence of his hypercarbic failure not to mention problems with airway secretions. Treatment would require a trach, suctioning and possibly intermittent ventilation. 3. Fever spike. Concern, of course, is about infection be it respiratory tract or otherwise. 4. Anemia. Receiving blood at the moment. Has some type of myeloproliferative disorder. I am not sure exactly what we are talking about, but whether that is related to his anemia, his platelet count or whatever is unclear. TIME SPENT: Time spent so far is 26 minutes.
--- NOTE | 2016-09-23 17:52 | NUR ---
PRBCs/fevers/PEG tube Transfused 2 units PRBCs per MD order. Pt tolerated well, no s/s of rxn. Pt febrile in AM prior to blood transfusion, but after turning on fan, and keeping blankets off pt, pt was afebrile. MD aware, no new orders. Abx continue as ordered. Pt brought in PEG tube accessories and I was able to hook tube feeding up to PEG tube. It flushed well and was patent. New T-dressing placed as well. Feeding at goal, residuals less than 60ml. Q2h turns, frequent oral care and repositioning continue. at bedside most of the shift.
[2016-09-23 18:03] LABS: Platelet Count 46 bil/L (150-400)
[2016-09-23 18:04] LABS: BASOPHILS % (AUTO) 1 % (0-3); EOSINOPHILS % (AUTO) 4 % (0-5); MONOCYTES % (AUTO) 3 % (4-12); NEUTROPHILS % (AUTO) 52 % (40-74)
--- NOTE | 2016-09-23 18:06 | PCM.PNMED ---
Subjective Date of Service Sep 23, 2016 Subjective Overnight: His Hb was noted at 6.8, began infusing 2U PRBCs. Today: He was noted to have a fever at 38.2 this morning. Continues on sedation with propofol and fentanyl, as well as phenylephrine for BP support. Unable to provide history. Exam Vital Signs Vital Sign - Last Date Time Temp Pulse Resp B/P Pulse Ox O2 Delivery O2 Flow Rate FiO2 09/23/16 16:09 70 112/54 98 45 09/23/16 16:00 36.7 16 Mechanical Ventilator 09/20/16 16:30 3.00 Intake and Output 09/22/16 09/22/16 09/23/16 Cumulative From/Thru 15:00 23:00 07:00 09/16/16 17:12 - 09/23/16 05:55 Intake Total 2239 ml 2260 ml 23966 ml Output Total 1500 ml 1850 ml 03300 ml Balance 739 ml 410 ml 56882 ml Intake Oral 0 ml IV Total 1622 ml 1414 ml 21902 ml Tube Feeding 437 ml 576 ml 6188 ml Tube Irrigant 180 ml 270 ml 3129 ml Output Urine Total 1500 ml 1850 ml 21620 ml Gastric Drainage Total 250 ml # Bowel Movements 0 0 1 Exam GEN: Patient is sedated and intubated, but somewhat responsive to stimuli. HEENT: Pupils are reactive, IJ in place, ET tube in place Cardiovascular: Regular rate and rhythm. Systolic ejection murmur present. Respiratory: Clear to auscultation bilaterally with no crackles, wheezes, or rhonchi. Abdomen: Nontender, nondistended. Hypoactive bowel sounds. Extremities: Bilateral lower extremity edema present. Skin: Thin, no excessive bruising, rashes, excoriations, ulcers present. Neuro: Pupils as above, patient responding to voice and intermittently following commands. Lab and Diagnostics Result Diagram: 09/23/16 1515 09/23/16 0520 X-Rays, CTs and MRIs X-RAY CHEST ONE VIEW, PORTABLE IMPRESSION: 1. Support lines and tubes. 2. Small pleural effusions and basilar opacities consistent with compressive atelectasis versus pneumonia, slightly increased on the left. Dictated by: Cam Tenorio RRA Interpreted: Hardy Du MD on 09/20/2016 at 9: 38 X-RAY CHEST ONE VIEW, PORTABLE IMPRESSION: 1. ET tube 4.6 cm superior to the rudi. 2. Increasing opacification in the left lung base which could represent atelectasis, pneumonia or aspiration. Dictated by: Dee Negron MD, PhD on 09/19/2016 at 9:10 CT BRAIN WITHOUT CONTRAST IMPRESSION: 1. No acute intracranial abnormalities. Moderate periventricular and deep white matter chronic small vessel ischemic change. Dictated by: Pavel Bates M.D. on 09/16/2016 at 13:38 12-lead ECG EKG personally/concurrently reviewed by Jorge rate 72, QTC 454 ms 09/16/16 * Poor quality data, interpretation may be affected . Sinus rhythm . Atrial premature complex * Possible left atrial enlargement * Nonspecific intraventricular conduction delay * Nonspecific repolarization abnormalities . When compared with ECG of 12-Sep-2015 9:03:05, * Significant rate decrease * Criteria for LAE is less prominent * ST-T abnormalities are less prominent Cardiac Echo Impressions Echocardiogram Report Interpretation Summary The left ventricular cavity is small. Left ventricular systolic function is normal without focal wall motion abnormalities. The ejection fraction is estimated to be 55-60%. Assessment of diastolic parameters indicates normal left ventricular diastolic function and normal filling pressures. The right ventricle is normal in size and function. The right ventricular systolic pressure is estimated at 37 mmHg assuming a right atrial pressure of 8 mm Hg. Both atria are normal in size. There is no significant valvular heart disease. The aortic root is mildly dilated. The ascending aorta is mild-moderately enlarged. No real significant changes since prior echos study on 09/12/2015. Additional Diagnostics [facility] DateTimeAnalyzed 05:39:00 -_ pH ____7.426 - 7.350 7.450 pCO2 ___31.8__ -mmHg 35.0 45.0 pO2 119 -mmHg 69.0 116 HCO3- ___20.5__ -mmol/L 22.0 26.0 Assessment & Plan Mr. Diogenes Coronado Junior is an 86-year-old gentleman with a past medical history of myeloproliferative disorder who was readmitted on 09/16/16 to [facility]. 09/19/16 he was noted to have decreasing mentation and increasing mucous plugging with a baseline of COPD. Blood gas obtained, pH 7.04/ PCO2 104 patient transferred to ICU and intubated. Hospital day 8 1. Acute hypercarbic hypoxic respiratory failure, not present on admission. Improving. - Likely 2nd to Airway blockage from casted secretions in the pharynx, hypopharynx, and trachea. When patient is awake he is able to breathe on his own although becomes agitated and anxious breathing approximate 40 times a minute. - Patient intubated and sedated. 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 Will give 15mg Ivermectin 2 times one week apart. Strongyloides Ag pending. - Dr. Burris with ICU pulmonology following, recommendations and time appreciated. - Dr. Marcelino with Infectious disease following, recommendations and time appreciated. - Spontaneous breathing trials on hold for now. - Changed BID albuterol to q6h albuterol and q6 ipratropium - Possible bronchoscopy in near future 2. Acute Septic shock, not present on admission. Active. - Blood pressure with wide pulse pressure of 102/43. 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 Patient has extensive history of aspiration pneumonia. MRSA screen positive. Sputum cultures and blood cultures negative. Viral PCR huggins-negative. - On phenylephrine gtt, wean as tolerated. - Repeat procalcitonin pending. - Lactic acidosis resolved. - Linezolid, meropenem, and levofloxacin, Fluconazole. - Currently awaiting lab results Strongyloides. Has received first dose of ivermectin 15 mg and will receive his second and final dose next week. 3. Acute anemia. Not present on admission. - Pt Hb dropped to 6.8, received 2U PRBCs, improved to 8. - Trend H&H overnight, transfuse for Hb >7 - Guaiac ordered 4. Acute exacerbation of COPD, present on admission. Improved. - Continue home tiotropium 5. Acute encephalopathy, not present on admission. Improved. - Reportedly patient normally conversant with his , he was waking up 09/18 enough to tell her he loved her. - Patient currently awakes easily, - Propofol 20mcg/Kg/min. - Palliative team following and working with family, time and recommendations appreciated 6. Acute thrombocytopenia, not present on admission. Active. - Platelets 77 (09/22) down from 170 day before. 7. Hypernatremia, present on admission. Active. - Na 154 - goal 0.4meq/hr (1.6meq per BMP) - IV NS @ 80 mls/hr - [facility] this morning at 2 AM, laboratory reportedly did not stop IV fluids when drawing. 8. Acute on chronic Chronic macrocytic anemia, present on admission. Active. - Likely due to hemoconcentration from dehydration. - Hgb currently 7.1 9. Hypercalcemia, present on admission. Resolved. - Ca 8.6 - PTH inappropriately normal R PTH is pending however patient may have hyperparathyroidism 10. Acute kidney injury, present on admission. Improving. - Baseline Cr ~ 0.85 - Trending downward since admission 09/16 Cr 2.02. Currently - Cr 1.37, - Continue aggressive fluid resuscitation. 11. Leukocytosis present on admission. Active. - WBC 36.5 - likely 2nd to hemoconcentration due to dehydration, without left shift. - WBC 23.6. Trending downward. 12. Myelofibosis, present on admission. Active. 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 Bruce and Sophia 13. Chronic oral Thrush, present on admission. Active. - fluconazole IV 09/15-, - will switch to Mycelex Trosche or nystatin swish when the patient's more awake. 14. Severe dysphagia, present on admission. Active. - prior intubation / pna, - PEG- continue PEG tube feeding- jevity continuous 75, free water 125mls 15. Weakness and debility, present on admission. Active. - From [facility] (S[facility]) admission - PT/OT - Likely Supply when stable enough. 16. Tremors, present on admission. Active. - no history of seizures will observe - per no AMS episodes until aug 2016, preceding tremors - Vit B complex 2/ Social: lives with his in [facility] Patient/Family Conference - Kenyatta and her son and his partner. Defines for him "quality of life is home and not NH and definitely not in hospital or on vent." Chronic conditions: gout- no sign of this now. --consider uric acid after fluid resuscitation, allopurinol had been stopped at some point and per oncologist note, he wanted him back on it. Hypertension Hyperlipidemia History of CAD History of dCHF History of hospital-acquired C. difficile Acetaminophen for mild pain when necessary. Bowel regimen Senna and MiraLAX scheduled and PRN. Zofran when necessary for nausea and vomiting. SubQ heparin held for now. SCDs in place. High-risk medications: IV fentanyl Vent settings: ABG: as above. I/Os:Nicholson in place. 3500 ml out 09/21/14 Lines: PICC Drips: phenylephrine 0.1, propofol 20mcg/kg/min , fentanyl 0 Diet - Januvia by PEG tube, Lactose-Free Food/Fiber (Jevity 1.5 Quoc Liquid) 1, 000 Ml Liquid 1,000 ML PO GI prophylaxis famotidine renally dosed. Disposition: Likely here for > 2 midnights. Dependent upon respiratory status. Family discussions ongoing. May require transfer to Supply within the next few days. Pain Evaluation: Adequate Pain Control VTE Mechanical Devices: Intermittant Pneumatic CD Resuscitation Status: DNR/DNI:Do Not Resuscitate/Intubate Attending Statement The patient was seen and examined together with Dr. Simons on 09/23/2016 and I agree with the history, exam and plan as outlined in the note above. . Lloyd Simons Sep 23, 2016 18:06 Crow Dubois MD Sep 26, 2016 08:56
[2016-09-23] MEDS: Sodium Chloride LOK Flush 10 mL Syringe IVFLUSH PRN ×2 (19:32)
[2016-09-23] MEDS: FLUCONAZOLE IV SCH (19:33)
[2016-09-23] MEDS: Artificial Tears 15 mL Ophthalmic Solution BOTH_EYES PRN ×2 (19:34→23:22)
[2016-09-24] VITALS (7 sets, daily range): BP systolic 121–134; BP diastolic 48–63; PULSE 77–85; RESP 14–21; O2SAT 98–100
[2016-09-24] MEDS: Insulin LISPRO 300 Unit/3 mL Inj SUBQ SCH ×2 (02:30→09:58)
[2016-09-24] MEDS: Albuterol 1.25 mg/3 mL Inhalation Solution NEB SCH ×2 (02:36→08:25)
[2016-09-24] MEDS: Ipratropium 0.02% 0.5 mg/2.5 mL Inhalation Solution NEB SCH ×2 (02:36→08:25)
--- NOTE | 2016-09-24 02:38 | NUR ---
Skin Pt remains on pressure ulcer protocol for low Braaden score. Pt Q2 Turned along with CLRT on CCU MAURY Bed. Pt has preventative mepilex placed on buttock and dressing is c/d/i. Blood pressure cuff moved from right upper arm to forearm r/t bruising on the underside of the patient's arm where the NBP cuff was located.
[2016-09-24 03:42] LABS: Mean Corpuscular Hemoglobin 31.6 pg (27.0-35.0); Mean Corpuscular Volume 99.3 fL (81-100); Platelet Count 40 bil/L (150-400)
[2016-09-24 04:04] LABS: BASOPHILS % (AUTO) 0 % (0-3); EOSINOPHILS % (AUTO) 7 % (0-5); MONOCYTES % (AUTO) 9 % (4-12); NEUTROPHILS % (AUTO) 57 % (40-74)
[2016-09-24] MEDS: Chlorhexidine 0.12% 15 mL Oral Solution MT SCH ×2 (04:09→08:18)
[2016-09-24] MEDS: Artificial Tears 15 mL Ophthalmic Solution BOTH_EYES PRN (04:09)
[2016-09-24] MEDS: Phenylephrine Inj 20,000 MCG in 0.9% Sodium Chloride 250 ML IV PRN (04:10)
[2016-09-24 04:13] LABS: INR 1.27 ratio
[2016-09-24] MEDS: fentaNYL 2,500 mCg/250 mL 2,500 MCG in IV Premix 1 EACH IV PRN (04:15)
[2016-09-24 04:21] LABS: D-DIMER 10.6 mg/L (<0.50)
--- NOTE | 2016-09-24 04:58 | ABG ---
DateTimeAnalyzed 04:54:00 -_ pH ____7.308 - 7.350 7.450 pCO2 ___45.7__ -mmHg 35.0 45.0 pO2 ___51.5__ -mmHg 69.0 116 HCO3- ___22.3__ -mmol/L 22.0 26.0 ABE ___-3.3__ -mmol/L -2.0 2.0 tHb ____8.9__ -g/dL O2Hb ___86.7__ -% COHb ____2.0__ -% MetHb ____1.0__ -% sO2 ___89.4__ -% 25.0 FIO2 ___45.0__ -% PEEP ____5.0__ -cmH2O Set_RR ___10.0__ -b/min Vt __470.0__ -L Drawn By AF - Date/Time Notified____ 04:58:00 -_ Spontaneous_RR ___17.0__ -b/min Oxygen Device 1 VENTILATOR - Notified By AF - Notified Whom ____Nurse - B 766 -mmHg tO2 ___10.8__ -Vol% Fred test N/A -
[2016-09-24] MEDS ORDERED: Calcium Chl 10% (Gm) Inj 2 GM in Dextrose 5% 250 ML IV ONE (05:20)
[2016-09-24] MEDS: Famotidine Inj 20 MG in IV Premix 1 EACH IV SCH (08:13)
--- NOTE | 2016-09-24 08:13 | DRSVH ---
PROCEDURE: X-RAY CHEST ONE VIEW, PORTABLE ([id number]) INDICATIONS: respiratory failure TECHNIQUE: One view of the chest was acquired. COMPARISON: [facility], CR, XR CHEST 1VW (PORTABLE), 09/23/2016, 3:09. FINDINGS: Surgical changes and devices: ETT tip projected 4.7 cm by the rudi. Stable positioning of left PIC C. Lungs are clear Lungs and pleura: No pleural effusions or pneumothorax. Retrocardiac airspace opacities present, le ft greater than right otherwise lungs are clear. No pleural effusion or pneumothorax. Mediastinum: Mediastinal contours appear normal. Heart size is normal. Bones and chest wall: No suspicious bony lesions. Overlying soft tissues appear unremarkable. IMPRESSION: 1. Stable support lines and tubes. 2. Retrocardiac air space opacity similar to prior examination consistent with atelectasis, aspiratio n or pneumonia. Dictated by: Cam Tenorio RRA Interpreted: Nitesh Wyatt MD on 09/24/2016 at 8:11 Transcribed by: EUGENIE on 09/24/2016 at 8:13 Approved by: Nitesh Wyatt M.D. on 09/24/2016 at 9:52
[2016-09-24] MEDS: Vitamin B Complex/Vit C Tablet PEG SCH (08:18)
[2016-09-24] MEDS ORDERED: Senna-Docusate 8.6-50 mg Tablet PO SCH (08:30)
[2016-09-24] MEDS: Propofol Inj 1,000,000 MCG in IV Premix 1 EACH IV PRN (08:55)
[2016-09-24] MEDS: Meropenem Inj 2,000 MG in 0.9% Sodium Chloride 100 ML IV SCH (08:56)
--- NOTE | 2016-09-24 09:11 | ABG ---
DateTimeAnalyzed 09:06:00 -_ pH ____7.320 - 7.350 7.450 pCO2 ___44.3__ -mmHg 35.0 45.0 pO2 ___86.1__ -mmHg 69.0 116 HCO3- ___22.2__ -mmol/L 22.0 26.0 ABE ___-3.2__ -mmol/L -2.0 2.0 tHb ____8.4__ -g/dL O2Hb ___95.2__ -% COHb ____2.0__ -% MetHb ____0.7__ -% sO2 ___97.8__ -% 25.0 FIO2 ___45.0__ -% PEEP ____5.0__ -cmH2O Set_RR ___10.0__ -b/min Vt __470.0__ -L Drawn By jmw - Date/Time Notified____ 09:11:00 -_ Spontaneous_RR ___16.0__ -b/min Oxygen Device 1 VENTILATOR - Notified By jmw - Notified Whom ____D MARIN - B 765 -mmHg tO2 ___11.4__ -Vol% Fred test _Positive -
[2016-09-24] MEDS ORDERED: Furosemide 10 mg/mL 4 mL Inj IVPUSH ONE (10:20)
--- NOTE | 2016-09-24 10:25 | NUR ---
Called and spoke with [facility] clinical liaison and let her know the plan for patient post LTAC. She has acceptance and would like to do transfer between [id number]. Updated JOSE and Addendum: 09/24/16 at 1043 by CORNELIUS VILLA CM Spoke with warehouse packer and she is working on ALS for patient and filling out [employer] form. Planning on ALS between [id number]. Updated JOSE Addendum: 09/24/16 at 1126 by CORNELIUS VILLA Spoke with [facility] and we have ALS for 1300 is accepting and can be reached at [phone]. RN to RN can be called to warehouse packer at [phone] Patient is transferring to [facility]. Updated JOSE and
--- NOTE | 2016-09-24 11:36 | NUR ---
NUTRITION FOLLOW UP ASSESS: 86 YO male admitted with encephalopathy, increased confusion and dehydration. Pt requires chronic PEG tube feeding related to severe dysphagia and chronic aspiration. PEG tube accessories brought from home, and RN hooked tube feeding up to PEG. Feedings at goal, and tolerating well. He remains intubated and sedated. Plans to reduce sedation today. Palliative team is following. Pt is positive 16 L, possibly start diuretics today. PMHX: Myeloproliferative disorder, CHF, COPD, T2DM, HTN, HLD, CAD, Gout, severe dysphagia, c-diff colitis. LABS: Reviewed. Na 153, Cl 120, BUN 38, Gluc 183, Ca 6.7, Phos 2.0, Alb 3.2, Procalcitonin 1.14 MEDS: Reviewed. Insulin, Propofol @ 8.3 ml/hr providing 219 kcal, Fentanyl, Bacid, Nephro-Maddison GI: BM x 1 (09/21) Bowel regimen continued. Senna administered 2.13. WT: 84 kg BMI: 29.0 kg/m2 ADMIT WT: 64.7 kg (BMI: 22.3 kg/m2) NUTRITION SUPPORT (PEG): Jevity 1.5 at 48 ml/hr + 90 mL H2O flush every 3 hours as per MD order (1584 kcals, 67 g protein, and 1523 ml free H2O per day) HOME TF: Jevity 1.2 at 75 mL/hr + 90 ML H2O every 3 hours providing 1320 kcals, 56 g protein, and 1392 ML free H2O per day. EST. NEEDS: COPD, Vented (recalculated needs 09/20) Kcals: 7140-0827 kcal/day (20-25 kcal/kg BW) Pro: 95-115 g/day (1.5-1.8 g/kg BW) NUTRITION DIAGNOSIS: 1) Inadequate oral intake related to severe dysphagia as evidenced by need for chronic PEG tube TF - PERSISTS. NUTRITION INTERVENTION: 1) Continue Jevity 1.5 at goal rate 48 ml/hr to provide 1803 kcal (1584 formula + 219 Propofol) and 67g protein, meeting 100% of calorie needs and 70% of protein needs. 2) Continue adding one packet of [employer] liquid protein three times per day to increase total protein intake to 100 g, meeting 100% of protein needs. 3) Adjust goal rate daily if Propofol continues. MONITOR / EVAL: Enteral feeding tolerance, medications, vent status, labs, GI, nutritional status. Continue to monitor per high nutrition risk guidelines. Addendum: 09/24/16 at [address] Student documentation reviewed and I agree with above note. TINO.
--- NOTE | 2016-09-24 12:26 | NUR ---
Spoke with updated ALS is coming with 1/2 hours no orders in chart at this time. He is going to get them in now. Updated COMPUTER SECURITY SPECIALIST
--- NOTE | 2016-09-24 12:34 | PCM.DIMED ---
COLIN BHATT DO 09/24/16 1232: Discharge Instructions Date of Service Sep 24, 2016 Dates of Hospitalization Sep 16, 2016 at 16:19 Discharge Diagnosis Discharge Diagnosis 1. Acute hypercarbic hypoxic respiratory failure, not present on admission. Improving. 2. Acute Septic shock, not present on admission. Active. 3. Acute anemia. Not present on admission. stable. 4. Acute exacerbation of COPD, present on admission. Improved. 5. Acute encephalopathy, not present on admission. Improved. 6. Acute thrombocytopenia, not present on admission. Active. 7. Hypernatremia, present on admission. Active. 8. Acute on chronic Chronic macrocytic anemia, present on admission. Active. 9. Hypercalcemia, present on admission. Resolved. 10. Acute kidney injury, present on admission. Improving. 11. Leukocytosis present on admission. Active. 12. Myelofibosis, present on admission. Active. 13. Chronic oral Thrush, present on admission. Active. 14. Severe dysphagia, present on admission. Active. 15. Weakness and debility, present on admission. Active. 16. Tremors, present on admission. Active. Chronic conditions: gout- no sign of this now. Hypertension Hyperlipidemia History of CAD History of dCHF History of hospital-acquired C. difficile Diet Other (Jevity 1.5 peg tube feeding) Patient Instructions Follow-up Provider: Ethan Self MD Follow-up with PCP in: 2 weeks Crow Dubois MD 09/26/16 0843: Discharge Instructions Attending's Statement The patient was seen and examined together with Dr. Bhatt on 09/24/2016 and I agree with the history, exam and plan as outlined in the note above. . COLIN BHATT DO Sep 24, 2016 12:32 Crow Dubois MD Sep 26, 2016 08:43
--- NOTE | 2016-09-24 12:46 | PCM.DC.MED ---
Discharge Summary Date of Service Sep 24, 2016 Dates of Hospitalization Date of Hospital Admission Sep 16, 2016 at 16:19 Date of Discharge: Sep 24, 2016 Providers: Admitting Physician: Sandra Holliday MD Primary Care Physician: Ethan Self MD Attending Physician: Sandra Holliday MD Diagnosis at Time of Discharge Diagnosis at Time of Discharge 1. Acute hypercarbic hypoxic respiratory failure, not present on admission. Improving. 2. Acute Septic shock, not present on admission. Active. 3. Acute anemia. Not present on admission. stable. 4. Acute exacerbation of COPD, present on admission. Improved. 5. Acute encephalopathy, not present on admission. Improved. 6. Acute thrombocytopenia, not present on admission. Active. 7. Hypernatremia, present on admission. Active. 8. Acute on chronic Chronic macrocytic anemia, present on admission. Active. 9. Hypercalcemia, present on admission. Resolved. 10. Acute kidney injury, present on admission. Improving. 11. Leukocytosis present on admission. Active. 12. Myelofibosis, present on admission. Active. 13. Chronic oral Thrush, present on admission. Active. 14. Severe dysphagia, present on admission. Active. 15. Weakness and debility, present on admission. Active. 16. Tremors, present on admission. Active. Chronic conditions: gout- no sign of this now. Hypertension Hyperlipidemia History of CAD History of dCHF History of hospital-acquired C. difficile Procedures XRay, CTs & MRIs X-RAY CHEST ONE VIEW, PORTABLE IMPRESSION: 1. Support lines and tubes. 2. Small pleural effusions and basilar opacities consistent with compressive atelectasis versus pneumonia, slightly increased on the left. Dictated by: Cam Tenorio RR Interpreted: Hardy Du MD on 09/20/2016 at 9: 38 X-RAY CHEST ONE VIEW, PORTABLE IMPRESSION: 1. ET tube 4.6 cm superior to the rudi. 2. Increasing opacification in the left lung base which could represent atelectasis, pneumonia or aspiration. Dictated by: Dee Negron MD, PhD on 09/19/2016 at 9:10 CT BRAIN WITHOUT CONTRAST IMPRESSION: 1. No acute intracranial abnormalities. Moderate periventricular and deep white matter chronic small vessel ischemic change. Dictated by: Pavel Bates M.D. on 09/16/2016 at 13:38 ECG 12 Lead EKG personally/concurrently reviewed by Jorge rate 72, QTC 454 ms 09/16/16 * Poor quality data, interpretation may be affected . Sinus rhythm . Atrial premature complex * Possible left atrial enlargement * Nonspecific intraventricular conduction delay * Nonspecific repolarization abnormalities . When compared with ECG of 12-Sep-2015 9:03:05, * Significant rate decrease * Criteria for LAE is less prominent * ST-T abnormalities are less prominent Cardiac Echo Impression Echocardiogram Report Interpretation Summary The left ventricular cavity is small. Left ventricular systolic function is normal without focal wall motion abnormalities. The ejection fraction is estimated to be 55-60%. Assessment of diastolic parameters indicates normal left ventricular diastolic function and normal filling pressures. The right ventricle is normal in size and function. The right ventricular systolic pressure is estimated at 37 mmHg assuming a right atrial pressure of 8 mm Hg. Both atria are normal in size. There is no significant valvular heart disease. The aortic root is mildly dilated. The ascending aorta is mild-moderately enlarged. No real significant changes since prior echos study on 09/12/2015. Other Diagnostics [facility] DateTimeAnalyzed 05:39:00 -_ pH ____7.426 - 7.350 7.450 pCO2 ___31.8__ -mmHg 35.0 45.0 pO2 119 -mmHg 69.0 116 HCO3- ___20.5__ -mmol/L 22.0 26[address] Ethan Self Oncologist- Dr. Bruce and Sophia Referring MD Dr. 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 His states that he had been doing well, active and liked fixing engines until he was given hydroxyurea in Jul 2015 for increasing WBC/ PLTs. He developed severe diffuse gouty arthritis requiring hospitalization. This was followed by hospitalizations for sepsis, aspiration pneumonia and eventual placement of PEG in Sep at [facility]. Other dx at that time include diastolic CHF with EF of 55-60%. He required intubation at [facility] for 8 days then transferred to SNF and then home. He never returned to baseline but did have about 6 months home. walking with walker, could drive etc. Starting in Jul he started to weaken and landed back in [facility] with aspiration and sepsis-then off to SNF but became dehydrated, weaker and confused and was readmitted 09/16/16 at [facility]. He was noted to have decreasing mentation and increasing mucous plugging with a baseline of COPD became obtunded and required intubation. He is intubated and hx is taken from his , Kenyatta of 19 yrs. She is accompanied by her son and his partner. The patient has 3 children-Navin (lives in [place]), Isaac and Brigette all living distantly. She states they had not had discussions since all of these illnesses since they didn't think this was going to happen again. She had debated authorizing intubation when driving to the hospital last noc but by the time she arrived-- he was intubated. Hospital Course Mr. Diogenes Coronado Junior is an 86-year-old gentleman with a past medical history of myeloproliferative disorder who was readmitted on 09/16/16 to [facility]. 09/19/16 he was noted to have decreasing mentation and increasing mucous plugging with a baseline of COPD. Blood gas obtained, pH 7.04/ PCO2 104 patient transferred to ICU and intubated. Hospital day 8 1. Acute hypercarbic hypoxic respiratory failure, not present on admission. Improving. - Likely 2nd to Airway blockage from casted secretions in the pharynx, hypopharynx, and trachea. When patient is awake he is able to breathe on his own although becomes agitated and anxious breathing approximate 40 times a minute. - Patient intubated and sedated. 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 Will give 15mg Ivermectin 2 times one week apart. Strongyloides Ag pending. - Dr. Burris with ICU pulmonology following, recommendations and time appreciated. - Dr. Marcelino with Infectious disease following, recommendations and time appreciated. - Changed BID albuterol to q6h albuterol and q6 ipratropium - Possible bronchoscopy in near future 2. Acute Septic shock, not present on admission. Active. - Blood pressure with wide pulse pressure of 102/43. 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 Patient has extensive history of aspiration pneumonia. MRSA screen positive. Sputum cultures and blood cultures negative. Viral PCR huggins-negative. - On phenylephrine gtt, wean as tolerated. - Procalcitonin improving daily. - Lactic acidosis resolved. - Linezolid, meropenem, and levofloxacin, Fluconazole. - Currently awaiting lab results Strongyloides. Has received first dose of ivermectin 15 mg and will receive his second and final dose next week. 3. Acute anemia. Not present on admission. Stable. - Pt - 8.6. - Trend H&H overnight, transfuse for Hb <7 - Guaiac ordered 4. Acute exacerbation of COPD, present on admission. Improved. - Continue home tiotropium 5. Acute encephalopathy, not present on admission. Improved. - Reportedly patient normally conversant with his , he was waking up 2/ enough to tell her he loved her. - Patient currently awakes easily, - Propofol 20mcg/Kg/min. - Palliative team following and working with family, time and recommendations appreciated 6. Acute thrombocytopenia, not present on admission. Active. - Platelets 77 (09/22) Today 40 (09/24). 7. Hypernatremia, present on admission. Active. - Na 154 - goal 0.4meq/hr (1.6meq per BMP) - IV NS @ 100 mls/hr 8. Acute on chronic Chronic macrocytic anemia, present on admission. Active. - Likely due to hemoconcentration from dehydration. - Hgb currently 7.1 9. Hypercalcemia, present on admission. Resolved. - Ca 8.6 - PTH inappropriately normal R PTH is pending however patient may have hyperparathyroidism 10. Acute kidney injury, present on admission. Improving. - Baseline Cr ~ 0.85 - Trending downward since admission 09/16 Cr 2.02. Currently - Cr 1.37, - Continue aggressive fluid resuscitation. 11. Leukocytosis present on admission. Active. - WBC 36.5 - likely 2nd to hemoconcentration due to dehydration, without left shift. - WBC 23.6. Trending downward. 12. Myelofibosis, present on admission. Active. - reports his baseline WBCs between 20-30k usually closer to 24k, got hydroxyurea 14k 09/18, 23.4 28 - JAK2 mutation negative myeloproliferative disorder, presumably myeloid metaplasia/myelofibrosis associated several severe infections - Oncologist- Dr. Bruce and Sophia 13. Chronic oral Thrush, present on admission. Active. - fluconazole IV 09/15-, - Mycelex Trosche or nystatin swish when the patient's more awake. 14. Severe dysphagia, present on admission. Active. - prior intubation / pna, - PEG- continue PEG tube feeding- jevity continuous 75, free water 125mls 15. Weakness and debility, present on admission. Active. - [facility] admission - PT/OT - Likely [place] when stable enough. 16. Tremors, present on admission. Active. - no history of seizures will observe - per no AMS episodes until aug 2016, preceding tremors - Vit B complex 09/15 Social: lives with his in [facility] Patient/Family Conference - Kenyatta and her son and his partner. Defines for him "quality of life is home and not NH and definitely not in hospital or on vent." Chronic conditions: gout- no sign of this now. --consider uric acid after fluid resuscitation, allopurinol had been stopped at some point and per oncologist note, he wanted him back on it. Hypertension Hyperlipidemia History of CAD History of dCHF History of hospital-acquired C. difficile Acetaminophen for mild pain when necessary. Bowel regimen Senna and MiraLAX scheduled and PRN. Zofran when necessary for nausea and vomiting. SubQ heparin held for now. SCDs in place. High-risk medications: IV fentanyl Vent settings: ABG: as above. I/Os:Nicholson in place. 3500 ml out 09/21/14 Lines: PICC Drips: phenylephrine 0.1, propofol 20mcg/kg/min , fentanyl 0 Diet - Januvia by PEG tube, Lactose-Free Food/Fiber (Jevity 1.5 Quoc Liquid) 1, 000 Ml Liquid 1,000 ML PO GI prophylaxis famotidine renally dosed. Disposition: Discharge to [place] today. . Exam Vital Signs (Last) Date Time Temp Pulse Resp B/P Pulse Ox O2 Delivery O2 Flow Rate FiO2 09/24/16 09:30 Ventilator 09/24/16 08:26 89 134/63 99 45 09/24/16 08:00 37.1 21 09/20/16 16:30 3.00 Exam GEN: Patient is sedated and intubated, but somewhat responsive to stimuli. HEENT: Pupils are reactive, IJ in place, ET tube in place Cardiovascular: Regular rate and rhythm. Systolic ejection murmur present. Respiratory: Clear to auscultation bilaterally with no crackles, wheezes, or rhonchi. Abdomen: Nontender, nondistended. Hypoactive bowel sounds. Extremities: Bilateral lower extremity edema present. Skin: Thin, no excessive bruising, rashes, excoriations, ulcers present. Neuro: Pupils as above, patient responding to voice and intermittently following commands. Test 09/16/16 12:09 09/16/16 14:19 09/16/16 15:10 09/16/16 17:04 Troponin T 0.010ug/L (0.0-0.011) Pro-B-Type Natriuretic Peptide 550.9pg/mL (0-486) Urine Color Yellow (YELLOW) Urine Appearance Clear (CLEAR,HAZY) Urine pH 6.5 (5.0-8.0) Urine Specific [place] 1.015 (1.003-1.035) Urine Protein Tracemg/dL (NEG,TRACE) Urine Glucose (UA) Negativemg/dL (NEGATIVE) Urine Ketones Negativemg/dL (NEGATIVE) Urine Occult Blood Negative (NEGATIVE) Urine Nitrite Negative (NEGATIVE) Urine Bilirubin Negative (NEGATIVE) Urine Urobilinogen Normalmg/dL (NORMAL) Urine Leukocyte Esterase Negative (NEGATIVE) Urine RBC 0-2/hpf (0-2) Urine WBC 0-5/hpf (0-5) Urine Epithelial Cells Occasional/hpf (NONE-MOD) Urine Crystals Amorphous urates (NONE Urine Bacteria Few/hpf (NONE-FEW) Urine Hyaline Casts None/lpf (NONE) Urine Granular Casts None seen (NONE SEEN) Urine Waxy Casts None seen (NONE SEEN) Urine Red Blood Cell Casts None seen (NONE SEEN) Urine White Blood Cell Casts None seen (NONE SEEN) Urine Mucus Present (None Seen) Urine Trichomonas None seen (NONE SEEN) Urine Yeast None (NONE SEEN) Urinalysis Comment Fine granular casts Urine Culture Reflexed Not indicated Urine Random Calcium 7.7mg/dL (Not Estab.) Urine Total Protein 40.4mg/dL (Not Estab.) Urine Albumin 19.8% (.) Urine Adgve-3-Rgrfmegc 4.9% (.) Urine Udxrl-6-Snoszlbra 19.5% (.) Urine Beta Globulin 36.7% (.) Urine Gamma Globulin 19.1% (.) Urine Protein Electrophoresis Note Comment (.) Urine Monoclonal Protein % 13.9% (Not Observed) Vitamin B12 Level >1999pg/mL (211-946) Thyroid Stimulating Hormone (TSH) 2.120uIU/mL (0.450-4.500) Ammonia 39ug/dL (18-53) Test 09/17/16 01:24 09/20/16 08:05 09/20/16 16:30 09/22/16 03:19 Calcium (Send out) 12.0mg/dL (8.6-10.2) Ionized Calcium 1.69mmol/L (1.17-1.32) Globulin (PEP) 3.4g/dL (2.2-3.9) Albumin/Globulin Ratio 0.8 (0.7-1.7) Byknf-4-Pwezmkfsx 0.3g/dL (0.0-0.4) Eakzt-3-Xqajvfxjy 0.6g/dL (0.4-1.0) Beta Globulins 1.0g/dL (0.7-1.3) Gamma Globulins 1.4g/dL (0.4-1.8) Serum Monoclonal Protein Not observedg/dL Protein Electrophoresis Comment Comment (.) Protein Electrophoresis Interpret Comment (.) Vitamin D 25-Hydroxy 43.1ng/mL (30.0-100.0) Parathyroid Hormone Interpretation Comment (.) Parathyroid Hormone (Intact) 40pg/mL (15-65) Total Intact Parathyroid Hormone 22pg/mL (15-65) Parathyroid Hormone Related Peptide <1.1pmol/L (.) Lactic Acid Level 1.8mmol/L (0.4-2.0) Urine Legionella pneumophilia Ag Negative (Negative) Promyelocytes % 0% (0-0) Hematology Comments N Test 09/22/16 03:34 09/23/16 15:15 09/24/16 03:21 Prealbumin 13mg/dL (20-40) Metamyelocytes % 2% (0-0) Myelocytes % 6% (0-0) Blast Cells % 1% (0-0) White Blood Count 16.7th/mm3 (3.8-10.1) Corrected White Blood Count 15.2th/mm3 (3.8-10.1) Red Blood Count 2.72mil/mm3 (4.40-5.80) Hemoglobin 8.6g/dL (13.8-17.2) Hematocrit 27.0% (41.0-50.0) Mean Corpuscular Volume 99.3fL (81-100) Mean Corpuscular Hemoglobin 31.6pg (27.0-35.0) Mean Corpuscular Hemoglobin Concent 31.9% (32.0-37.0) Red Cell Distribution Width 23.0% (12.3-15.4) Platelet Count 40bil/L (150-400) Neutrophils (%) (Auto) 57% (40-74) Lymphocytes (%) (Auto) 16% (14-46) Monocytes (%) (Auto) 9% (4-12) Eosinophils (%) (Auto) 7% (0-5) Basophils (%) (Auto) 0% (0-3) Band Neutrophils % 11% (1-5) Nucleated Red Blood Cells 10/100 WBC (0-24) Prothrombin Time 13.7sec (8.1-12.5) Prothromb Time International Ratio 1.27ratio Activated Partial Thromboplast Time 34.8sec (22.8-33.0) Fibrinogen 211mg/dL (157-380) D-Dimer 10.6mg/L (<0.50) Sodium Level 153mEq/L (134-144) Potassium Level 4.0mEq/L (3.5-5.2) Chloride Level 120mEq/L (97-108) Carbon Dioxide Level 21mmol/L (18-29) Blood Urea Nitrogen 38mg/dL (8-27) Creatinine 0.85mg/dL (0.76-1.27) Estimat Glomerular Filtration Rate 91mL/min (>59) Glucose Level 183mg/dL (60-99) Calcium Level 6.7mg/dL (8.5-10.1) Phosphorus Level 2.0mg/dL (2.5-4.9) Magnesium Level 2.0mg/dL (1.6-2.6) Total Bilirubin 0.9mg/dL (0.0-1.2) Aspartate Amino Transf (AST/SGOT) 25U/L (0-50) Alanine Aminotransferase (ALT/SGPT) 14U/L (0-44) Alkaline Phosphatase 80U/L (25-160) Total Protein 5.1g/dL (6.4-8.4) Albumin 3.2g/dL (3.4-5.0) Procalcitonin 1.14ng/mL (0.00-0.08) Discharge Medications Discharge Medications Albuterol HFA (Proair HFA) 8.5 Gm Hfa.aer.ad 2 PUFFS INHALATION q 8 hours ( Reported) Allopurinol (Allopurinol) 100 Mg Tablet 200 MG PO DAILY (Reported) Furosemide (Furosemide) 20 Mg Tab 20 MG PO DAILY (Reported) Hydroxyurea (Hydroxyurea) 500 Mg Capsule 500 MG PO mon, wed, fri (Reported) Lactobac Cmb #3/Fos/Pantethine (Probiotic & Acidophilus Cap) 1 Each Capsule 1 EACH PO BID (Reported) Linezolid (Zyvox) 600 Mg Tablet 600 MG PO BID Prescribed by: COLIN JOHNSON DO Ranitidine (Ranitidine) 150 Mg Capsule 150 MG PO BID (Reported) Simvastatin (Simvastatin) 10 Mg Tablet 10 MG PO HS (Reported) As needed Hydrocodone-Acetaminophen 5-325 mg (Hydrocodone-Acetaminophen 5-325 mg) 1 Each Tablet 1 TABLET PO Q4H PRN PRN For Pain (Reported) Polyethylene Glycol 3350 (Miralax) 17 Gm Powd.pack 17 GM PO DAILY PRN PRN For Constipation (Reported) Miscellaneous Medications Lactose-Free Food/Fiber (Jevity 1.5 Quoc Liquid) 1,000 Ml Liquid 1,000 ML PO ( Reported) Followup Plan Discharge Diet: Other (Jevity 1.5 peg tube feeding) Follow-up Provider: Ethan Self MD Follow-up with PCP in: 2 weeks Time spent Greater than 30 minutes was spent in preparation of discharge with greater than 50% of that time dedicated to patient counseling and coordination of care. . Attending Statement The patient was seen and examined together with Dr. Johnson on 09/24/2016 and I agree with the history, exam and plan as outlined in the note above. . copies to: Ethan Self MD, COREY P DO Sep 24, 2016 12:35 Crow Dubois MD Sep 26, 2016 08:55
--- NOTE | 2016-09-24 12:48 | NUR ---
Social Work Note: Discharge Data& Assessment: Per pt is medically stable for transfer to [facility]. UR Specialist confirmed acceptance with [facility] and arranged ALS transportation for 1p.m. today. SW spoke with and confirmed discharge plan. Pt had questions regarding [facility]. SW spoke with [facility] Liaison who contacted pt to answer all of her questions and address any concerns. Pt denies any other needs at this time. notified. All updated and agreeable to plan. Plan: Per pt is stable enough for transfer to [facility] via ALS today. Pt denies any other needs at this time. MD notified. All updated and agreeable to plan. JOSE Maldonado
--- NOTE | 2016-09-24 13:09 | NUR ---
Wound Care [facility] Pressure ulcer protocol order received. Spoke with nurse who states patient has blanchable red areas to heels and buttocks. States patient is discharging at 1pm to [facility]. No assessment performed due to patient discharging.
[2016-09-24] MEDS ORDERED: LINE600T2 PO (13:19)
--- NOTE | 2016-09-24 14:40 | NUR ---
Discharge to [facility]: [facility] transport arrived at 1255. Pt remains intubated vent settings: 45%/5PEEP/10RR/470TV. Tele: Sinus 80's. 3L PICC infusing Phenylephrine 0.2mcg/kg/min, Propofol 20mcg/kg/min, Fentanyl 75 mcg/hr and 1/2 NS 80mL/hr. JPeg tube feeding was DC'd for transport (Vital 1.5 48mL/hr with 90 H2O flush q3 hrs). Nicholson draining pale urine to gravity. Patient had one soft formed BM today. VSS. Pt exited unit with transport team at 1345. Kenyatta at bedside and stated she would drive and meet pt down at [place]. All personal belongings taken home by . Report was called to Mian CHAO at [facility] @ [phone] phone .
== END 2016-09-24 13:25 | DRG 207 ==
LOC: SED 12:03 → OSC 16:19 → CCU 09-19 08:39
PROVIDERS: ADMIT Urology; ATTEND Urology
PROC: 4A033R1 Measurement of Arterial Saturation, Peripheral, Percutaneous Approach (ICD-10-PCS; principal; 2016-09-19)
PROC: 5A1955Z Respiratory Ventilation, Greater than 96 Consecutive Hours (ICD-10-PCS; 2016-09-19)
PROC: 0BH17EZ Insertion of Endotracheal Airway into Trachea, Via Natural or Artificial Opening (ICD-10-PCS; 2016-09-19)
PROC: 30233N1 Transfusion of Nonautologous Red Blood Cells into Peripheral Vein, Percutaneous Approach (ICD-10-PCS; 2016-09-23)
DX: J44.1 Chronic obstructive pulmonary disease with (acute) exacerbation (principal); G93.41 Metabolic encephalopathy; J96.02 Acute respiratory failure with hypercapnia; J96.01 Acute respiratory failure with hypoxia; A41.9 Sepsis, unspecified organism; R65.21 Severe sepsis with septic shock; E87.0 Hyperosmolality and hypernatremia; N17.9 Acute kidney failure, unspecified; D75.81 Myelofibrosis; I50.32 Chronic diastolic (congestive) heart failure; T17.890A Other foreign object in other parts of respiratory tract causing asphyxiation, initial encounter; E86.0 Dehydration; R41.0 Disorientation, unspecified; B37.9 Candidiasis, unspecified; I10 Essential (primary) hypertension; E78.5 Hyperlipidemia, unspecified; I25.10 Atherosclerotic heart disease of native coronary artery without angina pectoris; M10.9 Gout, unspecified; Z87.891 Personal history of nicotine dependence; Z51.5 Encounter for palliative care; R25.1 Tremor, unspecified; D53.9 Nutritional anemia, unspecified; D69.6 Thrombocytopenia, unspecified